=== PATIENT | female | born 1985 | race Caucasian/White ===

== ENCOUNTER 2016-07-03 18:15 | Inpatient (IN) | payer OTHER ==
[2016-07-03 18:26] VITALS: BMI 24.1
[2016-07-03 19:10] LABS: MCH 32.2 pg (25.7-33.7); MCHC 34.4 g/dl (32.0-36.0); MEAN CELL VOLUME 93.7 fl (80-96); MEAN PLT VOLUME 10.1 fl (7.5-11.1); NEUTROPHILS 70.7 % (42.8-82.8); PLATELET COUNT 250 K/MM3 (134-434); RDW 12.4 % (11.6-15.6); WHITE BLOOD COUNT 11.4 K/mm3 (4.0-10.0)
[2016-07-03] MEDS ORDERED: HYDROmorphone HCL CARPU-JECT 1 MG/1 ML DISP.SYRIN ONE ×2 (19:51→21:58)
[2016-07-03] MEDS ORDERED: ONDANSETRON 4 MG/2 ML VIAL ONE (19:52)
--- NOTE | 2016-07-03 19:57 | PDOC ---
History of Present Illness - History of Present Illness Initial Comments: 07/03/16 20:01 Patient is a 30 year old female with significant medical hx of DM type II ( since childhood), DKA, lupus, and MS (diagnosed 2013) who is presenting to the ED with reported MS flare that has been progressing for the past week. The patient complains of difficulty swallowing, walking and speaking. She states that she needs support to ambulate while getting to the bathroom. The patient endorses some slurred speech when she talks for more than five minutes. The patient also complains of some pain to her lips, collar bone and chest (which she describes as a tightness with mild associated SOB). The patient notes that her symptoms are typical for a flare of her MS. She's been having flares intermittently for the past several months. Denies fever, chills, sore throat, painful swallowing, blurred vision, cough, sputum production, abdominal pain, vomiting, diarrhea, changes in urination, changes in bowel habits, bloody stools, and rashes. Allergies: amoxicillin, penicillin LNMP: two weeks ago. <Rimma Burrows - Last Filed: 07/03/16 20:01> <Minesh Gandhi - Last Filed: 07/04/16 01:29> - General Chief Complaint: Pain Stated Complaint: PAIN Past History <Rimma Burrows - Last Filed: 07/03/16 20:01> - Past Medical History Diabetes: Yes (IDDM on pump) Other medical history: MS, LUPUS - Surgical History Orthopedic Surgery: Yes (R. Knee) - Family Disease History Family Disease History: Diabetes: Brother, Other: Mother (ms) - Psycho/Social/Smoking Cessation Hx Anxiety: No Suicidal Ideation: No Smoking Status: Yes Smoking History: Never smoked Have you smoked in the past 12 months: Yes Number of Cigarettes Smoked Daily: 5 If you are a former smoker, when did you quit?: 2012 Information on smoking cessation initiated: No 'Breaking Loose' booklet given: 09/18/13 Hx Alcohol Use: No Drug/Substance Use Hx: No Substance Use Type: Marijuana Hx Substance Use Treatment: No <Minesh Gandhi - Last Filed: 07/04/16 01:29> - Past Medical History Allergies/Adverse Reactions: Allergies Allergy/AdvReac Type Severity Reaction Status Date / Time Penicillins Allergy Mild Hives Verified 07/03/16 18:21 Home Medications: Ambulatory Orders Insulin Pump Syringe, 3 ml [Fifty50 [place]] 1 each MC DAILY 12/25/12 Bupropion HCl [Wellbutrin Xl] 300 mg PO DAILY 10/06/15 Modafinil 200 mg PO DAILY 10/06/15 Norgestimate-Ethinyl Estradiol [Trinessa Tablet] 1 each PO DAILY 10/06/15 Baclofen 20 mg PO BID 07/03/16 Glatiramer Acetate [Copaxone] 40 mg SQ ASDIR 07/03/16 Review of Systems - Review of Systems Comments:: 07/03/16 20:04 GENERAL/CONSTITUTIONAL: No fever or chills. No weakness. HEAD, EYES, EARS, NOSE AND THROAT: Lip pain. No change in vision. No ear pain or discharge. No sore throat. CARDIOVASCULAR: Chest tightness. Mild shortness of breath. RESPIRATORY: No cough, wheezing, or hemoptysis. GASTROINTESTINAL: Nausea. No abdominal pain, vomiting, diarrhea or constipation. GENITOURINARY: No dysuria, frequency, or change in urination. MUSCULOSKELETAL: Collar boen pain. No neck or back pain. SKIN: No rash NEUROLOGIC: MS flare. Difficulty ambulating, swallowing, and speaking. No headache, vertigo, loss of consciousness. <Rimma Burrows - Last Filed: 07/03/16 20:01> *Physical Exam - Vital Signs Last Vital Signs Temp Pulse Resp BP Pulse Ox 98.1 F 113 H 18 125/79 100 07/03/16 18:21 07/03/16 18:21 07/03/16 18:21 07/03/16 18:21 07/03/16 18:21 - Physical Exam Comments: 07/03/16 20:07 GENERAL: Slightly uncomfortable. Awake, alert, and fully oriented HEAD: No signs of trauma EYES: PERRLA, EOMI, sclera anicteric, conjunctiva clear ENT: Auricles normal inspection, hearing grossly normal, nares patent, oropharynx clear without exudates. Dry mucosa NECK: Normal ROM, supple, no lymphadenopathy, JVD, or masses LUNGS: Appears uncomfortable breathing but in no respiratory distress. Speaking coherently in full sentences. Shallow respiratory effort. Breath sounds equal, clear to auscultation bilaterally. No wheezes, and no crackles HEART: Regular rate and rhythm, normal S1 and S2, no murmurs, rubs or gallops ABDOMEN: Soft, nontender, normoactive bowel sounds. No guarding, no rebound. No masses EXTREMITIES: Normal range of motion, no edema. No clubbing or cyanosis. No cords, erythema, or tenderness NEUROLOGICAL: Cranial nerves II through XII grossly intact. Normal speech, normal gait SKIN: Warm, Dry, poor skin turgor. Right dorsum lateral 1.5 x 1 cm granulation tissue with scab that is erythematous. Multiple small superficial excoriations on the upper extremity and lower extremity. No rashes. ENDOCRINE: No increased thirst. No abnormal weight change. HEMATOLOGIC/LYMPHATIC: No anemia, easy bleeding, or history of blood clots. <Rimma Burrows - Last Filed: 07/03/16 20:01> - Vital Signs Last Vital Signs Temp Pulse Resp BP Pulse Ox 98.1 F 113 H 18 125/79 100 07/03/16 18:21 07/03/16 18:21 07/03/16 18:21 07/03/16 18:21 07/03/16 18:21 <Minesh Gandhi - Last Filed: 07/04/16 01:29> ED Treatment Course - LABORATORY CBC & Chemistry Diagram: 07/03/16 19:00 07/03/16 19:00 <Rimma Burrows - Last Filed: 07/03/16 20:01> - LABORATORY CBC & Chemistry Diagram: 07/03/16 19:01 07/03/16 19:01 <Minesh Gandhi - Last Filed: 07/04/16 01:29> Medical Decision Making - Medical Decision Making 07/04/16 01:27 30yo F with her typical symptoms suggestive of MS flare. She has a negative evaluation other than clinic weakness; she is given solumedrol; I have discussed the case with PMD who agrees with plan; endorsed to Dr. Kearns hospitalist. <Minesh Gandhi - Last Filed: 07/04/16 01:29> *DC/Admit/Observation/Transfer - Attestations Scribe Attestion: 07/03/16 20:09 Documentation prepared by Rimma Burrows, acting as medical assistant per diem for Minesh Gandhi MD. <MarkosRimma - Last Filed: 07/03/16 20:01> - Discharge Dispostion Admit: Yes Decision to Admit order Date/Time: 07/04/16 01:29 - Attestations Physician Attestion: 07/04/16 01:29 I, Dr. Minesh Gandhi MD, attest that this document has been prepared under my direction and personally reviewed by me in its entirety. I further attest, that it accurately reflects all work, treatment, procedures and medical decision -making performed by me. <Minesh Gandhi - Last Filed: 07/04/16 01:29> Diagnosis at time of Disposition: Exacerbation of multiple sclerosis, Weakness of both lower extremities - Referrals Referrals: Harvinder Vasquez MD [Primary Care Provider] -
[2016-07-03 20:02] LABS: ALBUMIN 4.3 g/dl (3.4-5.0); ANION GAP 11 (8-16); CALCIUM 9.4 mg/dL (8.5-10.1); CO2 28 mmol/L (21-32); CREATININE 0.8 mg/dL (0.55-1.02); GLUCOSE,RANDOM 92 mg/dL (74-106); MAGNESIUM 1.9 mg/dL (1.8-2.4); SGOT/AST 9 U/L (15-37); SGPT/ALT 18 U/L (12-78)
[2016-07-03] MEDS ORDERED: methylPREDNISolone NA SUCC 125 MG/2 ML VIAL IVPB ONE ×2 (20:02→20:04)
[2016-07-03 20:04] LABS: ALK PHOS 56 U/L (45-117); BILIRUBIN,TOTAL 0.3 mg/dL (0.2-1.0); TOT PROT 7.5 g/dl (6.4-8.2)
[2016-07-03] MEDS ORDERED: HYDROmorphone HCL CARPU-JECT 1 MG/1 ML DISP.SYRIN IVPUSH ONE (20:09)
[2016-07-03] MEDS ORDERED: ONDANSETRON 4 MG/2 ML VIAL IVPUSH ONE (20:09)
[2016-07-03] MEDS ORDERED: SODIUM CHLORIDE 0.9% 500 ML INFUS.BAG IV ONE (20:10)
[2016-07-03] MEDS ORDERED: methylPREDNISolone NA SUCC 125 MG/2 ML VIAL ONE (20:24)
[2016-07-04] MEDS ORDERED: HYDROmorphone HCL CARPU-JECT 1 MG/1 ML DISP.SYRIN IVPUSH ONE ×2 (00:11→05:01)
--- NOTE | 2016-07-04 00:31 | HP ---
[id number] Dr. Harvinder Vasquez [phone] HISTORY OF PRESENT ILLNESS: Patient is a 30 year old female with significant medical hx of DM type II ( since childhood), DKA, lupus, and MS (diagnosed 2013) who is presented to the ED with difficulty ambulating and some slurred speech (only when patient is speaking for greater than 5 minutes in duration), pain bilaterally to the bottom of her feet, chest, and collarbone and stated that this is typical flares (besides foot pain and difficulty swallowing) from her MS denies painful swallowing, blurred vision, nausea, vomiting, diarrhea, and fever. LNMP: two weeks ago. ER course was notable for: (1) Mild tachycardia 100 bpm (2) Given Solumedrol 250 mg Recent Travel: Denied PAST MEDICAL HISTORY: Type II Diabetes, DKA, Lupus, MS PAST SURGICAL HISTORY: Right knee Social History: Smoking: Denied Alcohol: Denied Drugs: Denied Family History: Mother: MS Brother: diabetes Allergies Penicillins Allergy (Mild, Verified 07/03/16 18:21) Hives HOME MEDICATIONS: Home Medications Medication Instructions Recorded Insulin Pump Syringe, 3 ml 1 each MC DAILY 12/25/12 [Fifty50 [place]] Bupropion HCl [Wellbutrin Xl] 300 mg PO DAILY 10/06/15 Modafinil 200 mg PO DAILY 10/06/15 Norgestimate-Ethinyl Estradiol 1 each PO DAILY 10/06/15 [Trinessa Tablet] Baclofen 20 mg PO BID 07/03/16 Glatiramer Acetate [Copaxone] 40 mg SQ ASDIR 07/03/16 REVIEW OF SYSTEMS CONSTITUTIONAL: Absent: fever, chills, diaphoresis, generalized weakness, malaise, loss of appetite, weight change HEENT: Present: Difficulty swallowing Absent: rhinorrhea, nasal congestion, throat pain, throat swelling, mouth swelling, ear pain, eye pain, visual changes CARDIOVASCULAR: Present: Chest pain Absent: syncope, palpitations, irregular heart rate, lightheadedness, peripheral edema RESPIRATORY: Absent: cough, shortness of breath, dyspnea with exertion, orthopnea, wheezing, stridor, hemoptysis GASTROINTESTINAL: Absent: abdominal pain, abdominal distension, nausea, vomiting, diarrhea, constipation, melena, hematochezia GENITOURINARY: Absent: dysuria, frequency, urgency, hesitancy, hematuria, flank pain, genital pain MUSCULOSKELETAL: Present: Bilateral foot and collarbone pain Absent: myalgia, arthralgia, joint swelling, back pain, neck pain SKIN: Absent: rash, itching, pallor HEMATOLOGIC/IMMUNOLOGIC: Absent: easy bleeding, easy bruising, lymphadenopathy, frequent infections ENDOCRINE: Absent: unexplained weight gain, unexplained weight loss, heat intolerance, cold intolerance NEUROLOGIC: Present: Difficulty ambulating, slurred speech Absent: headache, focal weakness or paresthesias, dizziness, seizure, mental status changes, bladder or bowel incontinence PSYCHIATRIC: Absent: anxiety, depression, suicidal or homicidal ideation, hallucinations. PHYSICAL EXAMINATION Vital Signs - 24 hr 07/03/16 07/03/16 18:21 20:04 Temperature 98.1 F 99 F Pulse Rate 113 H Pulse Rate [ 100 H Right Radial] Respiratory 18 20 Rate Blood Pressure 125/79 Blood Pressure 139/90 [Left Arm] O2 Sat by Pulse 100 98 Oximetry (%) GENERAL: Awake, alert, and fully oriented, in no acute distress. HEAD: Normal with no signs of trauma. EYES: Pupils equal, round and reactive to light, extraocular movements intact, sclera anicteric, conjunctiva clear. No lid lag. EARS, NOSE, THROAT: Ears normal, nares patent, oropharynx clear without exudates. Moist mucous membranes. NECK: Normal range of motion, supple without lymphadenopathy, JVD, or masses. LUNGS: Breath sounds equal, clear to auscultation bilaterally. No wheezes, and no crackles. No accessory muscle use. HEART: Regular rate and rhythm, normal S1 and S2 without murmur, rub or gallop. ABDOMEN: Soft, nontender, not distended, normoactive bowel sounds, no guarding, no rebound, no masses. No hepatomegaly or splenomegaly. MUSCULOSKELETAL: Normal range of motion at all joints. No bony deformities or tenderness. No CVA tenderness. UPPER EXTREMITIES: 2+ pulses, warm, well-perfused. No cyanosis. No clubbing. No peripheral edema. LOWER EXTREMITIES: 2+ pulses, warm, well-perfused. No calf tenderness. No peripheral edema. NEUROLOGICAL: (+) Cranial nerves II-XII intact. +3 DTR bilaterally including bicep tricep dorsalis radius, dorsalis pedis and plantar. PSYCHIATRIC: Cooperative. Good eye contact. Appropriate mood and affect. SKIN: Warm, dry, normal turgor, no rashes or lesions noted, normal capillary refill. Laboratory Results - last 24 hr 07/03/16 07/03/16 19:01 19:01 WBC 11.4 H D RBC 4.31 Hgb 13.9 Hct 40.4 MCV 93.7 MCHC 34.4 RDW 12.4 Plt Count 250 MPV 10.1 Neutrophils % 70.7 D Lymphocytes % 21.9 D Monocytes % 4.4 Eosinophils % 2.0 D Basophils % 1.0 D Sodium 141 Potassium 3.6 Chloride 102 Carbon Dioxide 28 Anion Gap 11 BUN 11 Creatinine 0.8 D Creat Clearance w eGFR > 60 Random Glucose 92 D Calcium 9.4 Magnesium 1.9 Total Bilirubin 0.3 D AST 9 L D ALT 18 D Alkaline Phosphatase 56 Total Protein 7.5 Albumin 4.3 IMAGIN. Chest X-ray Impression: No official read. No acute finding. Reviewed and interpreted by radiologist. ASSESSMENT/PLAN: Patient is a 30 year old female with significant medical hx of DM type II ( since childhood), DKA, lupus, and MS (diagnosed 2013) who is presented to the ED with difficulty swallowing walking and speech consistent with prior MS flare being admitted for MS exacerbation 1. Multiple Sclerosis flare -Solumedrol 250 mg Q6H -On copaxone -MRI with and without contrast to look for new lesions 2. Diabetes -Fingersticks Q4H -On insulin pump -Continue basal coverage -Endocrine consult 3. Lupus -Continue with home medications -Pain control Admit to. Documentation prepared by Benji Garibay, acting as medical educator for Dr. Gracie Kearns MD. <Gracie Kearns - Last Filed: 07/05/16 07:08> Dysphagia - Speech and Swallow Consult Visit type - Emergency Visit Emergency Visit: Yes ED Registration Date: 07/04/16 Care time: The patient presented to the Emergency Department on the above date and was hospitalized for further evaluation of their emergent condition. - New Patient This patient is new to me today: Yes Date on this admission: 07/05/16 - Critical Care Critical Care patient: No
[2016-07-04] MEDS ORDERED: HYDROmorphone HCL CARPU-JECT 1 MG/1 ML DISP.SYRIN ONE ×2 (01:12→05:19)
[2016-07-04] MEDS ORDERED: methylPREDNISolone NA SUCC 125 MG/2 ML VIAL ONE ×4 (02:36→13:37)
[2016-07-04] MEDS: methylPREDNISolone NA SUCC 125 MG/2 ML VIAL IVPB SCH ×3 (02:46→10:00)
[2016-07-04] MEDS ORDERED: LORAZEPAM CARPU-JECT 2 MG/ML DISP.SYRIN IVPUSH ONE (06:01)
[2016-07-04] MEDS ORDERED: LORAZEPAM CARPU-JECT 2 MG/ML DISP.SYRIN ONE (06:14)
[2016-07-04 06:46] LABS: URINE APPEARANCE CLOUDY; URINE BILIRUBIN NEGATIVE (NEGATIVE); URINE BLOOD NEGATIVE (NEGATIVE); URINE COLOR YELLOW; URINE GLUCOSE (UA) NEGATIVE (NEGATIVE); URINE KETONE NEGATIVE (NEGATIVE); URINE NITRITE NEGATIVE (NEGATIVE); URINE PROTEIN NEGATIVE (NEGATIVE); URINE UROBILINOGEN NEGATIVE E.U./dl (0.2-1.0)
[2016-07-04 07:00] LABS: MCH 32.9 pg (25.7-33.7); MCHC 34.8 g/dl (32.0-36.0); MEAN CELL VOLUME 94.6 fl (80-96); MEAN PLT VOLUME 9.9 fl (7.5-11.1); PLATELET COUNT 205 K/MM3 (134-434); RDW 12.2 % (11.6-15.6); WHITE BLOOD COUNT 9.6 K/mm3 (4.0-10.0)
[2016-07-04 07:25] LABS: CALCIUM 8.8 mg/dL (8.5-10.1); CREATININE 0.8 mg/dL (0.55-1.02)
[2016-07-04 08:38] LABS: URINE LEUK ESTERASE TRACE (NEGATIVE)
[2016-07-04 08:42] LABS: URINE RBC 2 /hpf (0-3); URINE WBC 1 /hpf (3-5)
[2016-07-04] MEDS ORDERED: NORGESTIMATE ETHINYL ESTRADIOL PO SCH (10:00)
[2016-07-04] MEDS ORDERED: INSULIN PUMP MC SCH (10:00)
[2016-07-04] MEDS ORDERED: [UNRECOGNIZED DRUG - OTHER] MC SCH (10:00)
[2016-07-04] MEDS: BACLOFEN 10 MG TABLET (FP) PO SCH ×2 (10:10→22:02)
[2016-07-04] MEDS ORDERED: methylPREDNISolone NA SUCC 1000 MG/8 ML VIAL IVPB ONE ×2 (11:30→12:00)
[2016-07-04] MEDS ORDERED: methylPREDNISolone NA SUCC 125 MG/2 ML VIAL IVPB ONE (12:00)
--- NOTE | 2016-07-04 13:31 | EKG ---
Test Reason : Blood Pressure : / mmHG Vent. Rate : 078 BPM Atrial Rate : 078 BPM P-R Int : 150 ms QRS Dur : 088 ms QT Int : 392 ms P-R-T Axes : 071 066 066 degrees QTc Int : 446 ms NORMAL SINUS RHYTHM NORMAL ECG WHEN COMPARED WITH ECG OF 18-SEP-2013 13:57, NO SIGNIFICANT CHANGE WAS FOUND Confirmed by AYAD NIEVES MD ([id number]) on 07/04/2016 1:30:57 PM Referred By: Confirmed By:AYAD NIEVES MD
--- NOTE | 2016-07-04 13:50 | CONSULT ---
Consult Consult Specialty:: Neurology Reason for Consultation:: Multiple sclerosis exacerbation - History of Present Illness History of Present Illness: 30 year old woman, history of relapsing remitting multiple sclerosis, follows with Dr Donaldson and currently maintained on copaxone, diabetes, lupus, presents with new onset of left sided weakness. The patient was diagnosed in 2013 with MS after noting new onset of right foot drag. Her mother has history of MS as well. Patient has been on multiple medical regimes for MS treatment, including tecfidera which caused GI upset, aubagio, and currently copaxone. Over the last month has noted worsening of baseline symptoms (right arm ataxia) and new onset of left sided weakness. She has previously been hospitalized for IV solumedrol. Last MRI brain was in September 2015. Currently denies UTI symptoms, fever or infectious symptoms. - Past Medical History REGISTERED NURSE: Yes: Multiple Sclerosis ...LMP: 06/13/16 ...: No Endocrine: Yes: Diabetes Mellitus (on insulin pump) - Alcohol/Substance Use Hx Alcohol Use: No - Smoking History Smoking history: Former smoker Have you smoked in the past 12 months: Yes Aproximately how many cigarettes per day: 5 If you are a former smoker, when did you quit?: 2012 - Social History Usual Living Arrangement: With Significant Other Home Medications - Allergies Allergies/Adverse Reactions: Allergies Allergy/AdvReac Type Severity Reaction Status Date / Time Penicillins Allergy Mild Hives Verified 07/03/16 18:21 - Home Medications Home Medications: Ambulatory Orders Insulin Pump Syringe, 3 ml [Fifty50 [place]] 1 each ASDIR 12/25/12 Bupropion HCl [Wellbutrin Xl] 300 mg PO DAILY 10/06/15 Modafinil 200 mg PO DAILY 10/06/15 Norgestimate-Ethinyl Estradiol [Trinessa Tablet] 1 each PO DAILY 10/06/15 Baclofen 20 mg PO BID 07/03/16 Glatiramer Acetate [Copaxone] 40 mg SQ TUTHSA 07/03/16 Family Disease History - Family Disease History Family Disease History: Diabetes: Brother, Other: Mother (MS) Review of Systems - Review of Systems Constitutional: reports: No Symptoms Eyes: reports: No Symptoms HENT: reports: No Symptoms Cardiovascular: reports: No Symptoms Respiratory: reports: No Symptoms Neurological: reports: Incoordination, Unsteady Gait, Weakness Physical Exam Vital Signs: Vital Signs Temperature 98 F 07/04/16 11:08 Pulse Rate 93 H 07/04/16 11:08 Respiratory Rate 17 07/04/16 11:08 Blood Pressure 133/75 07/04/16 11:08 O2 Sat by Pulse Oximetry (%) 100 07/04/16 11:08 Constitutional: Yes: No Distress Eyes: Yes: Conjunctiva Clear, EOM Intact HENT: Yes: Atraumatic, Normocephalic Cardiovascular: Yes: S1, S2 Respiratory: Yes: Regular Neurological: Yes: Other (awake, alert, knows name, age, month CNII-XII EOMI, visual lopez full, face symmetric, tongue midline Motor moderate left hemiparesis, left deltoid/bicep/tri 4/5, hip flexion, knee flexion 4-/5 right arm ataxia to finger nose finger sensory intact to light touch) Labs: CBC, BMP 07/04/16 06:45 07/04/16 06:45 Assessment/Plan 30 year old woman, history of relapsing remitting multiple sclerosis, follows with Dr Donaldson and currently maintained on copaxone, diabetes, lupus, presents with new onset of left sided weakness. The patient was diagnosed in 2013 with MS after noting new onset of right foot drag. Her mother has history of MS as well. Patient has been on multiple medical regimes for MS treatment, including tecfidera which caused GI upset, aubagio, and currently copaxone. Over the last month has noted worsening of baseline symptoms (right arm ataxia) and new onset of left sided weakness. She has previously been hospitalized for IV solumedrol. Last MRI brain was in September 2015. Currently denies UTI symptoms, fever or infectious symptoms. Multiple sclerosis exacerbation Recommend Methylprednisolone 1 g IV for three to five days MRI brain and cervical spine with and without contrast Infectious workup PT/OT Will follow
[2016-07-04] MEDS ORDERED: ACETAMINOPHEN 325 MG TABLET (FP) PO PRN (17:42)
--- NOTE | 2016-07-04 17:48 | HP ---
Admitting History and Physical - Primary Care Physician PCP: Elbert Mooney - Admission Chief Complaint: SLURRED SPEECH/WEAKNESS History of Present Illness: Patient is a 30 year old female with significant medical hx of DM type II ( since childhood), DKA, lupus, and MS (diagnosed 2013) who is presented to the ED with difficulty ambulating and some slurred speech (only when patient is speaking for greater than 5 minutes in duration), pain bilaterally to the bottom of her feet, chest, and collarbone and stated that this is typical flares (besides foot pain and difficulty swallowing) from her MS denies painful swallowing, blurred vision, nausea, vomiting, diarrhea, and fever. LNMP: two weeks ago. 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: Multiple Sclerosis ...LMP: 06/13/16 ...: No Endocrine: Yes: Diabetes Mellitus (on insulin pump) - Smoking History Smoking history: Former smoker Have you smoked in the past 12 months: Yes Aproximately how many cigarettes per day: 5 If you are a former smoker, when did you quit?: 2013 - Alcohol/Substance Use Hx Alcohol Use: No Home Medications - Allergies Allergies/Adverse Reactions: Allergies Allergy/AdvReac Type Severity Reaction Status Date / Time Penicillins Allergy Mild Hives Verified 07/03/16 18:21 - Home Medications Home Medications: Ambulatory Orders Insulin Pump Syringe, 3 ml [Fifty50 [place]] 1 each ASDIR 12/25/12 Bupropion HCl [Wellbutrin Xl] 300 mg PO DAILY 10/06/15 Modafinil 200 mg PO DAILY 10/06/15 Norgestimate-Ethinyl Estradiol [Trinessa Tablet] 1 each PO DAILY 10/06/15 Baclofen 20 mg PO BID 07/03/16 Glatiramer Acetate [Copaxone] 40 mg SQ TUTHSA 07/03/16 Family Disease History - Family Disease History Family Disease History: Diabetes: Brother, Other: Mother (MS) Review of Systems - Review of Systems Constitutional: reports: Lethargy, Loss of Appetite, Weakness Eyes: reports: No Symptoms HENT: reports: No Symptoms Neck: reports: No Symptoms Cardiovascular: reports: No Symptoms Respiratory: reports: No Symptoms Gastrointestinal: reports: No Symptoms Genitourinary: reports: No Symptoms Musculoskeletal: reports: Muscle Weakness Integumentary: reports: Other Neurological: reports: Change in Speech, Confusion, Incoordination, Pre- Existing Deficit, Weakness Endocrine: reports: No Symptoms Hematology/Lymphatic: reports: No Symptoms Psychiatric: reports: No Symptoms Physical Examination Vital Signs: Vital Signs Temperature 98.1 F 07/04/16 16:49 Pulse Rate 89 07/04/16 16:49 Respiratory Rate 16 07/04/16 16:49 Blood Pressure 128/75 07/04/16 16:49 O2 Sat by Pulse Oximetry (%) 100 07/04/16 16:49 Constitutional: Yes: Mild Distress Eyes: Yes: WNL HENT: Yes: WNL Neck: Yes: WNL Cardiovascular: Yes: WNL Respiratory: Yes: WNL Gastrointestinal: Yes: WNL Renal/: Yes: WNL Musculoskeletal: Yes: Muscle Weakness Extremities: Yes: WNL Edema: No Peripheral Pulses WNL: Yes Integumentary: Yes: WNL Wound/Incision: Yes: Clean/Dry Neurological: Yes: Pre-Existing Deficit, Weakness ...Motor Strength: LUE, LLE, RUE, RLE Psychiatric: Yes: Other Labs: CBC, BMP 07/04/16 06:45 07/04/16 06:45 Imaging - Results MRI: Report Reviewed Problem List - Problems (1) Diabetes mellitus Code(s): E11.9 - TYPE 2 DIABETES MELLITUS WITHOUT COMPLICATIONS Qualifiers: Diabetes mellitus type: type 2 Diabetes mellitus complication detail: with other neurological complication (2) Headache Code(s): R51 - HEADACHE Qualifiers: Headache type: other vascular headache Qualified Code(s): G44.1 - Vascular headache, not elsewhere classified (3) Multiple sclerosis Code(s): G35 - MULTIPLE SCLEROSIS (4) Multiple sclerosis exacerbation Code(s): G35 - MULTIPLE SCLEROSIS (5) Weakness of both legs Code(s): R29.898 - OTH SYMPTOMS AND SIGNS INVOLVING THE MUSCULOSKELETAL SYSTEM (6) Ataxia Code(s): R27.0 - ATAXIA, UNSPECIFIED Assessment/Plan NEUROLOGY EVAL IV STEROIDS PPI PT EVAL DEPRESSION CONTROLLED NEURO CHECKS, FALL PRECAUTIONS
[2016-07-04] MEDS ORDERED: PT OWN MED DRAWER 7, Y5N ONE (18:14)
[2016-07-04] MEDS: HYDROmorphone HCL CARPU-JECT 1 MG/1 ML DISP.SYRIN IVPB PRN (19:44)
[2016-07-04] MEDS: PANTOPRAZOLE 40 MG TABLET (FP) PO SCH (19:44)
[2016-07-04] MEDS ORDERED: INSULIN SLIDING SCALE (NOVOLOG) 1 VIAL SQ SCH ×2 (22:00→23:59)
--- NOTE | 2016-07-04 23:47 | CONSULT ---
Consult Consult Specialty:: endocrine Referred by:: dr.rabadi fernandez Reason for Consultation:: iddm type 1 - History of Present Illness Chief Complaint: flare up MS high sugars on insulin pump History of Present Illness: 30 y female type 1 iddm ,pmh sle,MS,admitted with flare up MS with difficulty walking,burning pain in both feet,unable to walk worsening ballance,and mobility ,difficulty left sided weakness,has elevated blood sugars,and difficuty managing diabetes since admission.She uses insulin pump external device humalog basal bolus insulin dosing . 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 ...LMP: 06/13/16 ...: No Endocrine: Yes: Diabetes Mellitus (on insulin pump) - Alcohol/Substance Use Hx Alcohol Use: No - Smoking History Smoking history: Former smoker Have you smoked in the past 12 months: Yes Aproximately how many cigarettes per day: 5 If you are a former smoker, when did you quit?: 2012 - Social History Usual Living Arrangement: With Significant Other Home Medications - Allergies Allergies/Adverse Reactions: Allergies Allergy/AdvReac Type Severity Reaction Status Date / Time Penicillins Allergy Mild Hives Verified 07/03/16 18:21 - Home Medications Home Medications: Ambulatory Orders Insulin Pump Syringe, 3 ml [Fifty50 [place]] 1 each MC ASDIR 12/25/12 Bupropion HCl [Wellbutrin Xl] 300 mg PO DAILY 10/06/15 Modafinil 200 mg PO DAILY 10/06/15 Norgestimate-Ethinyl Estradiol [Trinessa Tablet] 1 each PO DAILY 10/06/15 Baclofen 20 mg PO BID 07/03/16 Glatiramer Acetate [Copaxone] 40 mg SQ TUTHSA 07/03/16 Family Disease History - Family Disease History Family Disease History: Diabetes: Brother, Other: Mother (MS) Review of Systems - Review of Systems Constitutional: reports: Lethargy, Loss of Appetite, Unintentional Wgt. Loss, Weakness Eyes: reports: Blurred Vision HENT: reports: Difficult Swallowing, Throat Pain Neck: reports: Decreased ROM Cardiovascular: reports: Shortness of Breath Respiratory: reports: Exercise Intolerance, SOB, SOB on Exertion Gastrointestinal: reports: Bloating Genitourinary: reports: No Symptoms Breasts: reports: No Symptoms Reported Musculoskeletal: reports: Decreased ROM, Extremity Pain, Joint Pain, Muscle Pain , Muscle Cramps, Muscle Weakness Integumentary: reports: Eczema Endocrine: reports: Unexplained Weight Loss Physical Exam Vital Signs: Vital Signs Temperature 98.1 F 07/04/16 16:49 Pulse Rate 89 07/04/16 16:49 Respiratory Rate 16 07/04/16 17:43 Blood Pressure 128/75 07/04/16 16:49 O2 Sat by Pulse Oximetry (%) 100 07/04/16 17:43 Constitutional: Yes: Anxious, Mild Distress Eyes: Yes: EOM Intact HENT: Yes: Normocephalic, Hoarseness Neck: Yes: Trachea Midline Cardiovascular: Yes: Regular Rate and Rhythm Respiratory: Yes: CTA Bilaterally Gastrointestinal: Yes: Normal Bowel Sounds ...Rectal Exam: Yes: Deferred Renal/: Yes: WNL Musculoskeletal: Yes: Muscle Pain, Muscle Weakness Edema: No Peripheral Pulses WNL: Yes Integumentary: Yes: WNL Neurological: Yes: Alert, Oriented, Numbness, Paresthesia, Pre-Existing Deficit , Tingling, Tremors, Unsteady Gait, Weakness Labs: CBC, BMP 07/04/16 06:45 07/04/16 06:45 Problem List - Problems (1) Headache Code(s): R51 - HEADACHE Qualifiers: Headache type: other vascular headache Qualified Code(s): G44.1 - Vascular headache, not elsewhere classified (2) Multiple sclerosis Code(s): G35 - MULTIPLE SCLEROSIS (3) Multiple sclerosis exacerbation Code(s): G35 - MULTIPLE SCLEROSIS (4) Weakness of both legs Code(s): R29.898 - OTH SYMPTOMS AND SIGNS INVOLVING THE MUSCULOSKELETAL SYSTEM (5) 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 Code(s): E10.44 - TYPE 1 DIABETES MELLITUS WITH DIABETIC AMYOTROPHY Assessment/Plan Current Active Problems Diabetes mellitus (Acute) Headache (Acute) Insomnia (Acute) Multiple sclerosis (Acute) Multiple sclerosis exacerbation (Acute) Weakness of both legs (Acute) iddm type 1 neuropathy hyperglycemia insulin dependent diabetes mellitus Abnormal Lab Results 07/04/16 07/04/16 06:10 06:45 Random Glucose 255 H D Ur Leukocyte Esterase Trace H Laboratory Results - last 24 hr 07/04/16 07/04/16 07/04/16 06:10 06:45 06:45 WBC 9.6 RBC 4.15 Hgb 13.7 Hct 39.3 MCV 94.6 MCHC 34.8 RDW 12.2 Plt Count 205 MPV 9.9 Sodium 136 Potassium 4.2 Chloride 102 Carbon Dioxide 22 D Anion Gap 12 BUN 10 Creatinine 0.8 POC Glucometer Random Glucose 255 H D Calcium 8.8 Urine Color Yellow Urine Appearance Cloudy Urine pH 8.0 Ur Specific [place] 1.012 Urine Protein Negative Urine Glucose (UA) Negative Urine Ketones Negative Urine Blood Negative Urine Nitrite Negative Urine Bilirubin Negative Urine Urobilinogen Negative Ur Leukocyte Esterase Trace H Urine RBC 2 Urine WBC 1 Ur Epithelial Cells Moderate 07/04/16 21:18 WBC RBC Hgb Hct MCV MCHC RDW Plt Count MPV Sodium Potassium Chloride Carbon Dioxide Anion Gap BUN Creatinine POC Glucometer 318 Random Glucose Calcium Urine Color Urine Appearance Urine pH Ur Specific [place] Urine Protein Urine Glucose (UA) Urine Ketones Urine Blood Urine Nitrite Urine Bilirubin Urine Urobilinogen Ur Leukocyte Esterase Urine RBC Urine WBC Ur Epithelial Cells Laboratory Tests 07/04/16 07/04/16 06:45 21:18 Sodium 136 Potassium 4.2 Chloride 102 Carbon Dioxide 22 D Anion Gap 12 BUN 10 Creatinine 0.8 POC Glucometer 318 Random Glucose 255 H D plan: bgm qid patient using insulin pump basal bolus dosing given carb count and adjustment patient capable of using using pump adherent to teaching criteria with instruction by cde will notify if sugar over 350 mg/dl or below 50mg/dl ck hb a1c
[2016-07-05] MEDS ORDERED: HYDROmorphone HCL CARPU-JECT 2 MG/1 ML DISP.SYRIN IVPB ONE (00:30)
[2016-07-05] MEDS: ONDANSETRON *ODT* 4 MG TABLET SL PRN ×2 (06:25→14:16)
[2016-07-05 08:50] LABS: CHOLESTEROL 215 mg/dL (50-200); LDL CHOLESTEROL (ONLY SJRH) 126 mg/dL (5-100)
[2016-07-05] MEDS ORDERED: methylPREDNISolone NA SUCC 125 MG/2 ML VIAL ONE (09:55)
[2016-07-05] MEDS: PANTOPRAZOLE 40 MG TABLET (FP) PO SCH (10:00)
[2016-07-05] MEDS: DOCUSATE SODIUM 100 MG CAPSULE (FP) PO SCH (10:00)
[2016-07-05] MEDS: BACLOFEN 10 MG TABLET (FP) PO SCH ×2 (10:01→22:02)
--- NOTE | 2016-07-05 10:49 | PN ---
Progress Note, Physician Chief Complaint: AWAKE ALERT UNSTEADY GAIT VISIBLE TREMORS AND WEAKNESS " I FEEL LIKE WHEN I SWALLOW I DO NOT KNOW IF I WILL BE ABLE TO CONTROL THE FOOD " - Current Medication List Current Medications: Active Medications Acetaminophen (Tylenol -) 650 mg PO Q6H PRN PRN Reason: FEVER OR PAIN Baclofen (Lioresal -) 20 mg PO BID [facility] Last Admin: 07/05/16 10:01 Dose: 20 mg Bupropion HCl (Wellbutrin Xl -) 300 mg PO DAILY [facility] Last Admin: 07/05/16 10:01 Dose: 300 mg Docusate Sodium (Colace -) 100 mg PO DAILY [facility] Last Admin: 07/05/16 10:00 Dose: 100 mg Hydromorphone HCl (Dilaudid Injection -) 1 mg IVPB Q6H PRN PRN Reason: PAIN Last Admin: 07/04/16 19:44 Dose: 1 mg Insulin Aspart (Novolog Vial Sliding Scale -) 1 vial SQ ACHS [facility] PRN Reason: Protocol Methylprednisolone Sodium Succinate (Solu-Medrol -) 1,000 mg IVPB DAILY [facility] Stop: 07/06/16 10:01 Non-Formulary Medication (Norgestimate-Ethinyl Estradiol [Trinessa Tablet]) 1 each PO DAILY [facility] Last Admin: 07/04/16 10:00 Dose: 1 each Ondansetron HCl (Zofran Odt -) 4 mg SL Q6H PRN PRN Reason: NAUSEA AND/OR VOMITING Last Admin: 07/05/16 06:25 Dose: 4 mg Pantoprazole Sodium (Protonix -) 40 mg PO DAILY [facility] Last Admin: 07/05/16 10:00 Dose: 40 mg - Objective Vital Signs: Vital Signs Temperature 97.5 F L 07/05/16 08:00 Pulse Rate 68 07/05/16 08:00 Respiratory Rate 18 07/05/16 08:00 Blood Pressure 115/79 07/05/16 08:00 O2 Sat by Pulse Oximetry (%) 100 07/05/16 08:34 Constitutional: Yes: Mild Distress Eyes: Yes: WNL HENT: Yes: WNL Neck: Yes: WNL Cardiovascular: Yes: WNL Respiratory: Yes: WNL Gastrointestinal: Yes: WNL Genitourinary: Yes: WNL Musculoskeletal: Yes: Muscle Weakness Extremities: Yes: Other Edema: No Peripheral Pulses WNL: Yes Integumentary: Yes: WNL Wound/Incision: Yes: Clean/Dry Neurological: Yes: Loss of Sensation, Numbness, Paresthesia, Pre-Existing Deficit, Tremors, Unsteady Gait, Weakness ...Motor Strength: LUE, LLE, RUE, RLE Psychiatric: Yes: WNL Labs: CBC, BMP 07/04/16 06:45 07/04/16 06:45 Problem List - Problems (1) Diabetes mellitus Code(s): E11.9 - TYPE 2 DIABETES MELLITUS WITHOUT COMPLICATIONS Qualifiers: Diabetes mellitus type: type 2 Diabetes mellitus complication detail: with other neurological complication (2) Headache Code(s): R51 - HEADACHE Qualifiers: Headache type: other vascular headache Qualified Code(s): G44.1 - Vascular headache, not elsewhere classified (3) Multiple sclerosis Code(s): G35 - MULTIPLE SCLEROSIS (4) Multiple sclerosis exacerbation Code(s): G35 - MULTIPLE SCLEROSIS (5) Weakness of both legs Code(s): R29.898 - OTH SYMPTOMS AND SIGNS INVOLVING THE MUSCULOSKELETAL SYSTEM (6) Ataxia Code(s): R27.0 - ATAXIA, UNSPECIFIED Assessment/Plan IV STEROIDS CONTINUE PAIN CONTROL OOB TO CHAIR SWALLOW EVAL RULE OUT ASPIRATIONS CHANGED TO CHOPPED DIET WITH HONEY THICK LIQUIDS UNTIL SWALLOW EVAL COMPLETE PAIN CONTROL MAY BENEFIT FROM SNF
--- NOTE | 2016-07-05 10:51 | PN ---
Progress Note (short form) - Note Progress Note: PATIENT CHANGED FROM TELEMETRY BED TO MED/SURGERY BECAUSE NO ACUTE CVA WAS NOTED ON MRI. Problem List - Problems (1) Diabetes mellitus Code(s): E11.9 - TYPE 2 DIABETES MELLITUS WITHOUT COMPLICATIONS Qualifiers: Diabetes mellitus type: type 2 Diabetes mellitus complication detail: with other neurological complication (2) Headache Code(s): R51 - HEADACHE Qualifiers: Headache type: other vascular headache Qualified Code(s): G44.1 - Vascular headache, not elsewhere classified (3) Multiple sclerosis Code(s): G35 - MULTIPLE SCLEROSIS (4) Multiple sclerosis exacerbation Code(s): G35 - MULTIPLE SCLEROSIS (5) Weakness of both legs Code(s): R29.898 - OTH SYMPTOMS AND SIGNS INVOLVING THE MUSCULOSKELETAL SYSTEM (6) Ataxia Code(s): R27.0 - ATAXIA, UNSPECIFIED
--- NOTE | 2016-07-05 11:39 | PN ---
Progress Note (short form) - Note Progress Note: Neurology follow up Consult Consult Specialty:: Neurology Reason for Consultation:: Multiple sclerosis exacerbation - History of Present Illness History of Present Illness: 30 year old woman, history of relapsing remitting multiple sclerosis, follows with Dr Donaldson and currently maintained on copaxone, diabetes, lupus, presents with new onset of left sided weakness. The patient was diagnosed in 2013 with MS after noting new onset of right foot drag. Her mother has history of MS as well. Patient has been on multiple medical regimes for MS treatment, including tecfidera which caused GI upset, aubagio, and currently copaxone. Over the last month has noted worsening of baseline symptoms (right arm ataxia) and new onset of left sided weakness. She has previously been hospitalized for IV solumedrol. Last MRI brain was in September 2015. Currently denies UTI symptoms, fever or infectious symptoms. 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 ...LMP: 06/13/16 ...: No Endocrine: Yes: Diabetes Mellitus (on insulin pump) - Alcohol/Substance Use Hx Alcohol Use: No - Smoking History Smoking history: Former smoker Have you smoked in the past 12 months: Yes Aproximately how many cigarettes per day: 5 If you are a former smoker, when did you quit?: 2012 - Social History Usual Living Arrangement: With Significant Other Home Medications - Allergies Allergies/Adverse Reactions: Allergies Allergy/AdvReac Type Severity Reaction Status Date / Time Penicillins Allergy Mild Hives Verified 07/03/16 18:21 - Home Medications Home Medications: Ambulatory Orders Insulin Pump Syringe, 3 ml [Fifty50 [place]] 1 each MC ASDIR 12/25/12 Bupropion HCl [Wellbutrin Xl] 300 mg PO DAILY 10/06/15 Modafinil 200 mg PO DAILY 10/06/15 Norgestimate-Ethinyl Estradiol [Trinessa Tablet] 1 each PO DAILY 10/06/15 Baclofen 20 mg PO BID 07/03/16 Glatiramer Acetate [Copaxone] 40 mg SQ TUTHSA 07/03/16 Family Disease History - Family Disease History Family Disease History: Diabetes: Brother, Other: Mother (MS) Review of Systems - Review of Systems Constitutional: reports: No Symptoms Eyes: reports: No Symptoms HENT: reports: No Symptoms Cardiovascular: reports: No Symptoms Respiratory: reports: No Symptoms Neurological: reports: Incoordination, Unsteady Gait, Weakness Physical Exam Constitutional: Yes: No Distress Eyes: Yes: Conjunctiva Clear, EOM Intact HENT: Yes: Atraumatic, Normocephalic Cardiovascular: Yes: S1, S2 Respiratory: Yes: Regular Neurological: Yes: Other (awake, alert, knows name, age, month CNII-XII EOMI, visual lopez full, face symmetric, tongue midline Motor moderate left hemiparesis, left deltoid/bicep/tri 4/5, hip flexion, knee flexion 4-/5 right arm ataxia to finger nose finger sensory intact to light touch) Assessment/Plan 30 year old woman, history of relapsing remitting multiple sclerosis, follows with Dr Donaldson and currently maintained on copaxone, diabetes, lupus, presents with new onset of left sided weakness. The patient was diagnosed in 2013 with MS after noting new onset of right foot drag. Her mother has history of MS as well. Patient has been on multiple medical regimes for MS treatment, including tecfidera which caused GI upset, aubagio, and currently copaxone. Over the last month has noted worsening of baseline symptoms (right arm ataxia) and new onset of left sided weakness. She has previously been hospitalized for IV solumedrol. Last MRI brain was in September 2015. Currently denies UTI symptoms, fever or infectious symptoms. Multiple sclerosis exacerbation, right parietal centrum semiovale ring enhancing lesion Recommend Methylprednisolone 1 g IV for three to five days, currently day 2 MRI brain and cervical spine with and without contrast- shows right parietal centrum semiovale ring enhancing lesion. MRI C spine ?C5 demyelinating plaque. Explained in detail to patient results of MRI PT/OT Will follow
--- NOTE | 2016-07-05 11:40 | CONSULT ---
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 ...LMP: 06/13/16 ...: No Endocrine: Yes: Diabetes Mellitus (on insulin pump) - Smoking History Smoking history: Former smoker Have you smoked in the past 12 months: Yes Aproximately how many cigarettes per day: 5 If you are a former smoker, when did you quit?: 2012 - Alcohol/Substance Use Hx Alcohol Use: No History - Admission Reason For Visit: M/S EXACERBATION WEAKNESS OF BOTH LEGS - Hearing Hearing: Normal Speech Evaluation - Communication Primary Language: ICELANDIC Communication: Yes: Within Normal Limits Oral Expression Ability: Yes: No Impairment - Speech Production Apraxia: No Able to Make Needs Known: Yes: WNL Intelligibility: Yes: WNL (Reportedly admitted to [facility] with slurred speech (now resolved).) - Speech Characteristics Voice Loudness: Normal Voice Pitch: Yes: Normal Voice Phonatory-based Quality: Yes: Normal Speech Pattern: Normal Nasal Resonance: Hyponasal/Denasal Articulation: Yes: Precise Rate of Speech: Intact Voice Comment: Vocal quality is denasal but functional for communication - Language/Auditory Comprehension Follows: Yes: 1 Stage Simple Commands (WFL), 2 Stage Simple Commands (WFL), Complex Commands (WFL) Observation: Able to respond to yes/no queries: Yes, Yes/No Confusion: No, Comprehends Conversational Speech: Yes, Benefits from Slow Speech: No (Not necessary), Benefits from Repetiton: No (Not necessary), Benefits from Increased Volume of Speech: No (Not necessary) - Language/Verbal Expression Able to Respond to Simple Queries: Yes: WNL Able to Communicate Wants and Needs: Yes: WNL Functional Communication Status: Yes: WNL Aware of Errors: Yes Attempts to Correct Errors: Yes Use of Gestures: Yes Written Expression: Not examined. Oral Expression: WFL Reading Comprehension: Not examined. 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: WNL Short Term Memory: Yes: WNL - Swallow Evaluation/Bedside Assessment Current Nutritional Intake: Soft (Chopped diet is listed in EMR), Honey Textured Liquids Oral Secretions: Yes: WFL Tracheostomy Present: No Patient on Ventilator: No Dentition: Yes: Adequate Facial Symmetry at Rest: Symmetrical Facial Symmetry on Retraction: Symmetrical Facial Movement: Controlled Sensation: Normal Facial Comment: WFL for speech and swallowing purposes Jaw Position: Closed at Rest Against Resistance Opening: Normal Against Resistance Closing: Normal Pucker Lips: Normal Smile: Normal Lips, Comment: WFL for speech and swallowing purposes Lingual Movement: Normal Lingual Speed of Movement: Normal Lingual Movement Strgth Against Opposition: Normal Lingual Movement Characteristics: Normal Lingual Comment: WFL for speech and swallowing purposes Soft Palate Description: Normal Color, Normal Arch Hard Palate Description: Normal Color, Normal Arch Gag Reflex: Strong Bite Reflex: Present Velopharyngeal Movement: Normal Laryngeal Elevation: WFL Laryngeal Movement: Able to Palpate, Labored,delay initiation (With liquids only.) Needs Assistance: No Rate of Intake: WFL Bolus Size: WFL Labial Seal: WFL Chewing: WFL Oral Prep Time: WFL A-P Transit: WFL Pocketing: None Timing of Swallow: Delayed (With liquids only.) Coughing/Throat Clear: No Change in Voice: No Other Findings/Remarks: 30 year old female seen at bedside for swallow eval to rule out dysphagia. Pt is verbal A&Ox3 cooperative. Able to follow directives. Admitted to [facility] with MS (flair up) generalized weakness of the lower extremities and slurred speech (now resolved). MHX includes MS (diagnosed 2013), DM DKA, and lupus. Pt presents with ataxic motor movement of her upper extremities. Pt reports she has a reduced appetite recently. Pt given po trials of puree, mech soft and soft diet with minimal assistance revealed good acceptance, adequate bolus manipulation and transport. Pharyngeal swallow appears timely with no evidence of aspiration-like behaviors , no cough or changes in respiration. Pt given po trials for ice chips, thin and thicken liquids without assistance revealed good acceptance, adequate labial containment and transport. Pharyngeal swallows appears labored in initiation. Pt uses a natural chin tuck to swallow all liquids. No evidence of aspiration-like behaviors, no cough or changes in respiration. Recommendations - Speech Evaluation, Impression/Plan Impression: 30 year old female presents with minimal s/s of pharyngeal phase dysphagia for liquids only. No evidence of aspiration-like behaviors, no cough or changes in respiration. Slurred speech appears to have been resolved at this time. Manager Internet Goals: Tolerate the least restrictive diet consistency with ut s/s of aspiration. - Dysphagia Impressions/Plan Swallowing Skills: Impaired (Pharyngeal phase with liquids.) Dysphagia Impressions: Minimal Impairment Dysphagia Treatment Plan: Small Bites, Chin Tuck/Down, Safe Rate, Elevate HOB during feed, Other (alternate liquids for every 2-3 bites of solids. Crush meds in applesauce for ease in swallowing.) Dysphagia Evaluation Summary: Pt presents with minimal pharyngeal phase dysphagia for liquids. No evidence of aspiration with solids and liquids at this time. Results given to charge aRN and to pcp via chart. Speech is within functional limits at this time. Recommendations: Modified Barium Swallow (consider to determine if there are any structural abnormalities affecting swallowing liquids.), Other (Nutritional counsultation to addess weight loss.) - Recommendations Diet Consistency: 1 - 2 Soft Items Medication Administration: Crushed with applesauce Liquids: [place] Thick
[2016-07-05] MEDS ORDERED: methylPREDNISolone NA SUCC 1000 MG/8 ML VIAL IVPB ONE (12:00)
[2016-07-05] MEDS: methylPREDNISolone NA SUCC 1000 MG/8 ML VIAL IVPB SCH (12:45)
[2016-07-05] MEDS: HYDROmorphone HCL CARPU-JECT 1 MG/1 ML DISP.SYRIN IVPB PRN ×2 (14:20→20:54)
--- NOTE | 2016-07-06 00:18 | PN ---
Progress Note, Physician Chief Complaint: weakness and difficulty ambulating and swallowing,sugars remain high History of Present Illness: iddm,type1 insulin pump user with basal bolus requirements higher since flare up of ms needing high dose steroids - Current Medication List Current Medications: Active Medications Acetaminophen (Tylenol -) 650 mg PO Q6H PRN PRN Reason: FEVER OR PAIN Baclofen (Lioresal -) 20 mg PO BID [facility] Last Admin: 07/05/16 22:02 Dose: 20 mg Bupropion HCl (Wellbutrin Xl -) 300 mg PO DAILY [facility] Last Admin: 07/05/16 10:01 Dose: 300 mg Docusate Sodium (Colace -) 100 mg PO DAILY [facility] Last Admin: 07/05/16 10:00 Dose: 100 mg Hydromorphone HCl (Dilaudid Injection -) 1 mg IVPB Q6H PRN PRN Reason: PAIN Last Admin: 07/05/16 20:54 Dose: 1 mg Insulin Aspart (Novolog Vial Sliding Scale -) 1 vial SQ ACHS [facility] PRN Reason: Protocol Methylprednisolone Sodium Succinate (Solu-Medrol -) 1,000 mg IVPB DAILY [facility] Stop: 07/06/16 10:01 Last Admin: 07/05/16 12:45 Dose: 1,000 mg Non-Formulary Medication (Norgestimate-Ethinyl Estradiol [Trinessa Tablet]) 1 each PO DAILY [facility] Last Admin: 07/04/16 10:00 Dose: 1 each Ondansetron HCl (Zofran Odt -) 4 mg SL Q6H PRN PRN Reason: NAUSEA AND/OR VOMITING Last Admin: 07/05/16 14:16 Dose: 4 mg Pantoprazole Sodium (Protonix -) 40 mg PO DAILY [facility] Last Admin: 07/05/16 10:00 Dose: 40 mg - Objective Vital Signs: Vital Signs Temperature 98.2 F 07/05/16 22:00 Pulse Rate 96 H 07/05/16 22:00 Respiratory Rate 18 07/05/16 22:00 Blood Pressure 122/68 07/05/16 22:00 O2 Sat by Pulse Oximetry (%) 100 07/05/16 08:34 Constitutional: Yes: Well Nourished, Calm Eyes: Yes: EOM Intact HENT: Yes: Normocephalic Neck: Yes: Trachea Midline Respiratory: Yes: CTA Bilaterally Gastrointestinal: Yes: Normal Bowel Sounds ...Rectal Exam: Yes: Deferred Genitourinary: Yes: WNL Breast(s): Yes: WNL Musculoskeletal: Yes: Back Pain, Joint Swelling, Muscle Pain, Muscle Weakness Extremities: Yes: Delayed Capillary Refill Edema: No Peripheral Pulses WNL: Yes Neurological: Yes: Alert, Oriented, Tingling, Tremors, Unsteady Gait, Weakness ...Motor Strength: LUE, LLE, RLE (weakness noted on exam) Labs: CBC, BMP 07/04/16 06:45 07/05/16 13:30 Problem List - Problems (1) Headache Code(s): R51 - HEADACHE Qualifiers: Headache type: other vascular headache Qualified Code(s): G44.1 - Vascular headache, not elsewhere classified (2) Multiple sclerosis Code(s): G35 - MULTIPLE SCLEROSIS (3) Multiple sclerosis exacerbation Code(s): G35 - MULTIPLE SCLEROSIS (4) Weakness of both legs Code(s): R29.898 - OTH SYMPTOMS AND SIGNS INVOLVING THE MUSCULOSKELETAL SYSTEM (5) 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 Code(s): E10.44 - TYPE 1 DIABETES MELLITUS WITH DIABETIC AMYOTROPHY Assessment/Plan Current Active Problems Diabetes mellitus (Acute) Headache (Acute) Insomnia (Acute) Multiple sclerosis (Acute) Multiple sclerosis exacerbation (Acute) Weakness of both legs (Acute) iddm type 1 neuropathy hyperglycemia insulin dependent diabetes mellitus Abnormal Lab Results 07/04/16 07/04/16 06:10 06:45 Random Glucose 255 H D Ur Leukocyte Esterase Trace H Laboratory Results - last 24 hr 07/04/16 07/04/16 07/04/16 06:10 06:45 06:45 WBC 9.6 RBC 4.15 Hgb 13.7 Hct 39.3 MCV 94.6 MCHC 34.8 RDW 12.2 Plt Count 205 MPV 9.9 Sodium 136 Potassium 4.2 Chloride 102 Carbon Dioxide 22 D Anion Gap 12 BUN 10 Creatinine 0.8 POC Glucometer Random Glucose 255 H D Calcium 8.8 Urine Color Yellow Urine Appearance Cloudy Urine pH 8.0 Ur Specific [place] 1.012 Urine Protein Negative Urine Glucose (UA) Negative Urine Ketones Negative Urine Blood Negative Urine Nitrite Negative Urine Bilirubin Negative Urine Urobilinogen Negative Ur Leukocyte Esterase Trace H Urine RBC 2 Urine WBC 1 Ur Epithelial Cells Moderate 07/04/16 21:18 WBC RBC Hgb Hct MCV MCHC RDW Plt Count MPV Sodium Potassium Chloride Carbon Dioxide Anion Gap BUN Creatinine POC Glucometer 318 Random Glucose Calcium Urine Color Urine Appearance Urine pH Ur Specific [place] Urine Protein Urine Glucose (UA) Urine Ketones Urine Blood Urine Nitrite Urine Bilirubin Urine Urobilinogen Ur Leukocyte Esterase Urine RBC Urine WBC Ur Epithelial Cells Laboratory Tests 07/04/16 07/04/16 06:45 21:18 Sodium 136 Potassium 4.2 Chloride 102 Carbon Dioxide 22 D Anion Gap 12 BUN 10 Creatinine 0.8 POC Glucometer 318 Random Glucose 255 H D plan: bgm qid patient using insulin pump basal bolus dosing given carb count and adjustment patient capable of using using pump adherent to teaching criteria with instruction by cde will notify if sugar over 350 mg/dl or below 50mg/dl ck hb a1c add higher doses of insulin basal rates mn 1.0u/hr 4am 1.3 630 am 1.4 u/hr with bolus achs meals
[2016-07-06] MEDS: DOCUSATE SODIUM 100 MG CAPSULE (FP) PO SCH (09:33)
[2016-07-06] MEDS: BACLOFEN 10 MG TABLET (FP) PO SCH ×2 (09:34→21:07)
[2016-07-06] MEDS: PANTOPRAZOLE 40 MG TABLET (FP) PO SCH (09:34)
[2016-07-06] MEDS: ONDANSETRON *ODT* 4 MG TABLET SL PRN (09:35)
[2016-07-06] MEDS: methylPREDNISolone NA SUCC 1000 MG/8 ML VIAL IVPB SCH (10:06)
--- NOTE | 2016-07-06 12:14 | PN ---
Progress Note (short form) - Note Progress Note: Neurology follow up Consult Consult Specialty:: Neurology Reason for Consultation:: Multiple sclerosis exacerbation - History of Present Illness History of Present Illness: 30 year old woman, history of relapsing remitting multiple sclerosis, follows with Dr Donaldson and currently maintained on copaxone, diabetes, lupus, presents with new onset of left sided weakness. The patient was diagnosed in 2013 with MS after noting new onset of right foot drag. Her mother has history of MS as well. Patient has been on multiple medical regimes for MS treatment, including tecfidera which caused GI upset, aubagio, and currently copaxone. Over the last month has noted worsening of baseline symptoms (right arm ataxia) and new onset of left sided weakness. She has previously been hospitalized for IV solumedrol. Last MRI brain was in September 2015. Currently denies UTI symptoms, fever or infectious symptoms. 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 ...LMP: 06/13/16 ...: No Endocrine: Yes: Diabetes Mellitus (on insulin pump) - Alcohol/Substance Use Hx Alcohol Use: No - Smoking History Smoking history: Former smoker Have you smoked in the past 12 months: Yes Aproximately how many cigarettes per day: 5 If you are a former smoker, when did you quit?: 2012 - Social History Usual Living Arrangement: With Significant Other Home Medications - Allergies Allergies/Adverse Reactions: Allergies Allergy/AdvReac Type Severity Reaction Status Date / Time Penicillins Allergy Mild Hives Verified 07/03/16 18:21 - Home Medications Home Medications: Ambulatory Orders Insulin Pump Syringe, 3 ml [Fifty50 [place]] 1 each ASDIR 12/25/12 Bupropion HCl [Wellbutrin Xl] 300 mg PO DAILY 10/06/15 Modafinil 200 mg PO DAILY 10/06/15 Norgestimate-Ethinyl Estradiol [Trinessa Tablet] 1 each PO DAILY 10/06/15 Baclofen 20 mg PO BID 07/03/16 Glatiramer Acetate [Copaxone] 40 mg SQ [facility] 07/03/16 Family Disease History - Family Disease History Family Disease History: Diabetes: Brother, Other: Mother (MS) Review of Systems - Review of Systems Constitutional: reports: No Symptoms Eyes: reports: No Symptoms HENT: reports: No Symptoms Cardiovascular: reports: No Symptoms Respiratory: reports: No Symptoms Neurological: reports: Incoordination, Unsteady Gait, Weakness Physical Exam Constitutional: Yes: No Distress Eyes: Yes: Conjunctiva Clear, EOM Intact HENT: Yes: Atraumatic, Normocephalic Cardiovascular: Yes: S1, S2 Respiratory: Yes: Regular Neurological: Yes: Other (awake, alert, knows name, age, month CNII-XII EOMI, visual lopez full, face symmetric, tongue midline Motor moderate left hemiparesis, left deltoid/bicep/tri 4/5, hip flexion, knee flexion 4-/5 right arm ataxia to finger nose finger sensory intact to light touch) Assessment/Plan 30 year old woman, history of relapsing remitting multiple sclerosis, follows with Dr Donaldson and currently maintained on copaxone, diabetes, lupus, presents with new onset of left sided weakness. The patient was diagnosed in 2013 with MS after noting new onset of right foot drag. Her mother has history of MS as well. Patient has been on multiple medical regimes for MS treatment, including tecfidera which caused GI upset, aubagio, and currently copaxone. Over the last month has noted worsening of baseline symptoms (right arm ataxia) and new onset of left sided weakness. She has previously been hospitalized for IV solumedrol. Last MRI brain was in September 2015. Currently denies UTI symptoms, fever or infectious symptoms. Multiple sclerosis exacerbation, right parietal centrum semiovale ring enhancing lesion Recommend Methylprednisolone 1 g IV for five days, currently day 3, plan for completion Sunday MRI brain and cervical spine with and without contrast- shows right parietal centrum semiovale ring enhancing lesion. MRI C spine ?C5 demyelinating plaque. Explained in detail to patient results of MRI PT/OT Recommend tertiary care MS center for further management post discharge, she already has an appointment at [facility] at end of the month
[2016-07-06] MEDS: HYDROmorphone HCL CARPU-JECT 1 MG/1 ML DISP.SYRIN IVPB PRN (15:10)
--- NOTE | 2016-07-06 17:54 | PN ---
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 Pt was scheduled for MBS today but has been re-scheduled. Pt reports that she is consuming solid meals without difficultly at this time. Still has mild difficulty with thin liquids but no s/s of aspiration. Recommendation continue current diet of soft solids and thin liquids as tolerated. Results given to charge entry and pcp via chart.
--- NOTE | 2016-07-06 21:45 | PN ---
Progress Note, Physician Chief Complaint: SEEN THIS AM FEELING A LITTLE BETTER - Current Medication List Current Medications: Active Medications Acetaminophen (Tylenol -) 650 mg PO Q6H PRN PRN Reason: FEVER OR PAIN Baclofen (Lioresal -) 20 mg PO BID [facility] Last Admin: 07/06/16 21:07 Dose: 20 mg Bupropion HCl (Wellbutrin Xl -) 300 mg PO DAILY [facility] Last Admin: 07/06/16 09:34 Dose: 300 mg Docusate Sodium (Colace -) 100 mg PO DAILY [facility] Last Admin: 07/06/16 09:33 Dose: 100 mg Hydromorphone HCl (Dilaudid Injection -) 1 mg IVPB Q6H PRN PRN Reason: PAIN Last Admin: 07/06/16 15:10 Dose: 1 mg Insulin Aspart (Novolog Vial Sliding Scale -) 1 vial SQ ACHS [facility] PRN Reason: Protocol Methylprednisolone Sodium Succinate (Solu-Medrol -) 1,000 mg IVPB DAILY [facility] Stop: 07/08/16 10:01 Non-Formulary Medication (Norgestimate-Ethinyl Estradiol [Trinessa Tablet]) 1 each PO DAILY [facility] Last Admin: 07/04/16 10:00 Dose: 1 each Ondansetron HCl (Zofran Odt -) 4 mg SL Q6H PRN PRN Reason: NAUSEA AND/OR VOMITING Last Admin: 07/06/16 09:35 Dose: 4 mg Pantoprazole Sodium (Protonix -) 40 mg PO DAILY [facility] Last Admin: 07/06/16 09:34 Dose: 40 mg - Objective Vital Signs: Vital Signs Temperature 97.9 F 07/06/16 17:10 Pulse Rate 78 07/06/16 17:10 Respiratory Rate 18 07/06/16 17:10 Blood Pressure 122/76 07/06/16 17:10 O2 Sat by Pulse Oximetry (%) 98 07/05/16 21:00 Constitutional: Yes: Mild Distress Eyes: Yes: WNL HENT: Yes: WNL Neck: Yes: WNL Cardiovascular: Yes: WNL Respiratory: Yes: WNL Gastrointestinal: Yes: WNL Genitourinary: Yes: WNL Musculoskeletal: Yes: Muscle Weakness Extremities: Yes: Other Edema: Yes Edema: LLE: Trace, RLE: Trace Peripheral Pulses WNL: Yes Integumentary: Yes: WNL Wound/Incision: Yes: Clean/Dry Neurological: Yes: Confusion, Loss of Sensation, Paresthesia, Pre-Existing Deficit, Tingling, Tremors, Unsteady Gait, Weakness ...Motor Strength: LLE, RLE Psychiatric: Yes: Agitated Labs: CBC, BMP 07/04/16 06:45 07/05/16 13:30 Problem List - Problems (1) Diabetes mellitus Code(s): E11.9 - TYPE 2 DIABETES MELLITUS WITHOUT COMPLICATIONS Qualifiers: Diabetes mellitus type: type 2 Diabetes mellitus complication detail: with other neurological complication (2) Headache Code(s): R51 - HEADACHE Qualifiers: Headache type: other vascular headache Qualified Code(s): G44.1 - Vascular headache, not elsewhere classified (3) Multiple sclerosis Code(s): G35 - MULTIPLE SCLEROSIS (4) Multiple sclerosis exacerbation Code(s): G35 - MULTIPLE SCLEROSIS (5) Weakness of both legs Code(s): R29.898 - OTH SYMPTOMS AND SIGNS INVOLVING THE MUSCULOSKELETAL SYSTEM (6) Ataxia Code(s): R27.0 - ATAXIA, UNSPECIFIED Assessment/Plan IV STEROIDS CONTINUE PAIN CONTROL OOB TO CHAIR SWALLOW EVAL RULE OUT ASPIRATIONS CHANGED TO CHOPPED DIET WITH HONEY THICK LIQUIDS UNTIL SWALLOW EVAL COMPLETE PAIN CONTROL MAY BENEFIT FROM SNF
[2016-07-07] MEDS: PANTOPRAZOLE 40 MG TABLET (FP) PO SCH (10:38)
[2016-07-07] MEDS: DOCUSATE SODIUM 100 MG CAPSULE (FP) PO SCH (10:38)
[2016-07-07] MEDS: BACLOFEN 10 MG TABLET (FP) PO SCH ×2 (10:38→21:01)
[2016-07-07] MEDS: methylPREDNISolone NA SUCC 1000 MG/8 ML VIAL IVPB SCH (10:39)
[2016-07-07] MEDS: ONDANSETRON *ODT* 4 MG TABLET SL PRN ×2 (11:18→18:07)
--- NOTE | 2016-07-07 12:21 | PN ---
Progress Note (short form) - Note Progress Note: Neurology follow up Consult Consult Specialty:: Neurology Reason for Consultation:: Multiple sclerosis exacerbation - History of Present Illness History of Present Illness: 30 year old woman, history of relapsing remitting multiple sclerosis, follows with Dr Donaldson and currently maintained on copaxone, diabetes, lupus, presents with new onset of left sided weakness. The patient was diagnosed in 2013 with MS after noting new onset of right foot drag. Her mother has history of MS as well. Patient has been on multiple medical regimes for MS treatment, including tecfidera which caused GI upset, aubagio, and currently copaxone. Over the last month has noted worsening of baseline symptoms (right arm ataxia) and new onset of left sided weakness. She has previously been hospitalized for IV solumedrol. Last MRI brain was in September 2015. Currently denies UTI symptoms, fever or infectious symptoms. 05/07 Patient seen and examined, reports some improvement in left side strength Day 2 steroids/5 Denies any side effects/ new neurological issues 05/08 Patient seen and examined Denies any new complaints, continues to have some left side weakness Day 3/5 steroids, complains of nausea no other appreciable side effects 05/09 Improved left side strength Day 4/5 steroids - Past Medical History [employer]ING [employer]: Yes: Multiple Sclerosis ...LMP: 06/13/16 ...: No Endocrine: Yes: Diabetes Mellitus (on insulin pump) - Alcohol/Substance Use Hx Alcohol Use: No - Smoking History Smoking history: Former smoker Have you smoked in the past 12 months: Yes Aproximately how many cigarettes per day: 5 If you are a former smoker, when did you quit?: 2012 - Social History Usual Living Arrangement: With Significant Other Home Medications - Allergies Allergies/Adverse Reactions: Allergies Allergy/AdvReac Type Severity Reaction Status Date / Time Penicillins Allergy Mild Hives Verified 07/03/16 18:21 - Home Medications Home Medications: Ambulatory Orders Insulin Pump Syringe, 3 ml [Fifty50 [place]] 1 each ASDIR 12/25/12 Bupropion HCl [Wellbutrin Xl] 300 mg PO DAILY 10/06/15 Modafinil 200 mg PO DAILY 10/06/15 Norgestimate-Ethinyl Estradiol [Trinessa Tablet] 1 each PO DAILY 10/06/15 Baclofen 20 mg PO BID 07/03/16 Glatiramer Acetate [Copaxone] 40 mg SQ [facility] 07/03/16 Family Disease History - Family Disease History Family Disease History: Diabetes: Brother, Other: Mother (MS) Review of Systems - Review of Systems Constitutional: reports: No Symptoms Eyes: reports: No Symptoms HENT: reports: No Symptoms Cardiovascular: reports: No Symptoms Respiratory: reports: No Symptoms Neurological: reports: Incoordination, Unsteady Gait, Weakness Physical Exam Constitutional: Yes: No Distress Eyes: Yes: Conjunctiva Clear, EOM Intact HENT: Yes: Atraumatic, Normocephalic Cardiovascular: Yes: S1, S2 Respiratory: Yes: Regular Neurological: Yes: Other (awake, alert, knows name, age, month CNII-XII EOMI, visual lopez full, face symmetric, tongue midline Motor moderate left hemiparesis, left deltoid/bicep/tri 4+/5, hip flexion, knee flexion 4+/5 right arm ataxia to finger nose finger sensory intact to light touch) Assessment/Plan 30 year old woman, history of relapsing remitting multiple sclerosis, follows with Dr Donaldson and currently maintained on copaxone, diabetes, lupus, presents with new onset of left sided weakness. The patient was diagnosed in 2013 with MS after noting new onset of right foot drag. Her mother has history of MS as well. Patient has been on multiple medical regimes for MS treatment, including tecfidera which caused GI upset, aubagio, and currently copaxone. Over the last month has noted worsening of baseline symptoms (right arm ataxia) and new onset of left sided weakness. She has previously been hospitalized for IV solumedrol. Last MRI brain was in September 2015. Currently denies UTI symptoms, fever or infectious symptoms. Multiple sclerosis exacerbation, right parietal centrum semiovale ring enhancing lesion Recommend Methylprednisolone 1 g IV for five days, currently day 4, complete tomorrow MRI brain and cervical spine with and without contrast- shows right parietal centrum semiovale ring enhancing lesion. MRI C spine ?C5 demyelinating plaque. Explained in detail to patient results of MRI PT/OT Recommend tertiary care MS center for further management post discharge, she already has an appointment at [facility] at end of the month Ok from neuro perspective to d/c tomorrow after last dose of steroids
--- NOTE | 2016-07-07 15:43 | PN ---
Progress Note, Physician Chief Complaint: AWAKE FEELING BETTER - Current Medication List Current Medications: Active Medications Acetaminophen (Tylenol -) 650 mg PO Q6H PRN PRN Reason: FEVER OR PAIN Baclofen (Lioresal -) 20 mg PO BID [facility] Last Admin: 07/07/16 10:38 Dose: 20 mg Bupropion HCl (Wellbutrin Xl -) 300 mg PO DAILY [facility] Last Admin: 07/07/16 10:38 Dose: 300 mg Docusate Sodium (Colace -) 100 mg PO DAILY [facility] Last Admin: 07/07/16 10:38 Dose: 100 mg Hydromorphone HCl (Dilaudid Injection -) 1 mg IVPB Q6H PRN PRN Reason: PAIN Last Admin: 07/06/16 15:10 Dose: 1 mg Insulin Aspart (Novolog Vial Sliding Scale -) 1 vial SQ ACHS [facility] PRN Reason: Protocol Methylprednisolone Sodium Succinate (Solu-Medrol -) 1,000 mg IVPB DAILY [facility] Stop: 07/08/16 10:01 Last Admin: 07/07/16 10:39 Dose: 1,000 mg Non-Formulary Medication (Norgestimate-Ethinyl Estradiol [Trinessa Tablet]) 1 each PO DAILY [facility] Last Admin: 07/04/16 10:00 Dose: 1 each Ondansetron HCl (Zofran Odt -) 4 mg SL Q6H PRN PRN Reason: NAUSEA AND/OR VOMITING Last Admin: 07/07/16 11:18 Dose: 4 mg Pantoprazole Sodium (Protonix -) 40 mg PO DAILY [facility] Last Admin: 07/07/16 10:38 Dose: 40 mg - Objective Vital Signs: Vital Signs Temperature 98.1 F 07/07/16 15:10 Pulse Rate 86 07/07/16 15:10 Respiratory Rate 20 07/07/16 15:10 Blood Pressure 128/70 07/07/16 15:10 O2 Sat by Pulse Oximetry (%) 98 07/06/16 21:00 Constitutional: Yes: Mild Distress Eyes: Yes: WNL HENT: Yes: WNL Neck: Yes: WNL Cardiovascular: Yes: WNL Respiratory: Yes: WNL Gastrointestinal: Yes: WNL Genitourinary: Yes: WNL Musculoskeletal: Yes: Muscle Weakness Extremities: Yes: WNL Edema: No Peripheral Pulses WNL: Yes Integumentary: Yes: WNL Wound/Incision: Yes: Clean/Dry Neurological: Yes: Pre-Existing Deficit, Unsteady Gait ...Motor Strength: LLE, RLE Psychiatric: Yes: WNL Labs: CBC, BMP 07/04/16 06:45 07/05/16 13:30 Problem List - Problems (1) Diabetes mellitus Code(s): E11.9 - TYPE 2 DIABETES MELLITUS WITHOUT COMPLICATIONS Qualifiers: Diabetes mellitus type: type 2 Diabetes mellitus complication detail: with other neurological complication (2) Headache Code(s): R51 - HEADACHE Qualifiers: Headache type: other vascular headache Qualified Code(s): G44.1 - Vascular headache, not elsewhere classified (3) Multiple sclerosis Code(s): G35 - MULTIPLE SCLEROSIS (4) Multiple sclerosis exacerbation Code(s): G35 - MULTIPLE SCLEROSIS (5) Weakness of both legs Code(s): R29.898 - OTH SYMPTOMS AND SIGNS INVOLVING THE MUSCULOSKELETAL SYSTEM (6) Ataxia Code(s): R27.0 - ATAXIA, UNSPECIFIED Assessment/Plan IV STEROIDS CONTINUE PAIN CONTROL OOB TO CHAIR SWALLOW EVAL RULE OUT ASPIRATIONS CHANGED TO CHOPPED DIET WITH HONEY THICK LIQUIDS UNTIL SWALLOW EVAL COMPLETE PAIN CONTROL MAY BENEFIT FROM SNF
[2016-07-07] MEDS ORDERED: INSULIN (NOVOLOG) ASPART 100 UNITS/ML 10ML VIAL ONE (21:35)
[2016-07-08 09:33] LABS: MCH 32.2 pg (25.7-33.7); MCHC 33.8 g/dl (32.0-36.0); MEAN CELL VOLUME 95.3 fl (80-96); MEAN PLT VOLUME 10.1 fl (7.5-11.1); PLATELET COUNT 234 K/MM3 (134-434); RDW 12.2 % (11.6-15.6); WHITE BLOOD COUNT 12.3 K/mm3 (4.0-10.0)
[2016-07-08] MEDS ORDERED: PT OWN MED DRAWER 7, Y5N ONE (09:35)
[2016-07-08] MEDS: BACLOFEN 10 MG TABLET (FP) PO SCH (09:47)
[2016-07-08] MEDS: DOCUSATE SODIUM 100 MG CAPSULE (FP) PO SCH (09:47)
[2016-07-08] MEDS: methylPREDNISolone NA SUCC 1000 MG/8 ML VIAL IVPB SCH (09:48)
[2016-07-08] MEDS: PANTOPRAZOLE 40 MG TABLET (FP) PO SCH (09:48)
[2016-07-08 10:06] LABS: ALBUMIN 4.1 g/dl (3.4-5.0); ANION GAP 11 (8-16); CALCIUM 9.4 mg/dL (8.5-10.1); CO2 29 mmol/L (21-32); GLUCOSE,RANDOM 64 mg/dL (74-106)
[2016-07-08 10:11] LABS: ALK PHOS 53 U/L (45-117); BILIRUBIN,TOTAL 0.7 mg/dL (0.2-1.0); SGOT/AST 5 U/L (15-37); SGPT/ALT 19 U/L (12-78); TOT PROT 7.1 g/dl (6.4-8.2)
[2016-07-08] MEDS ORDERED: [UNRECOGNIZED DRUG - OTHER] SQ SCH (11:00)
[2016-07-08] MEDS ORDERED: INSULIN LISPRO SQ SCH (11:00)
--- NOTE | 2016-07-08 13:18 | PN ---
Progress Note (short form) - Note Progress Note: Neurology follow up Consult Consult Specialty:: Neurology Reason for Consultation:: Multiple sclerosis exacerbation - History of Present Illness History of Present Illness: 30 year old woman, history of relapsing remitting multiple sclerosis, follows with Dr Donaldson and currently maintained on copaxone, diabetes, lupus, presents with new onset of left sided weakness. The patient was diagnosed in 2013 with MS after noting new onset of right foot drag. Her mother has history of MS as well. Patient has been on multiple medical regimes for MS treatment, including tecfidera which caused GI upset, aubagio, and currently copaxone. Over the last month has noted worsening of baseline symptoms (right arm ataxia) and new onset of left sided weakness. She has previously been hospitalized for IV solumedrol. Last MRI brain was in September 2015. Currently denies UTI symptoms, fever or infectious symptoms. 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 ...LMP: 06/13/16 ...: No Endocrine: Yes: Diabetes Mellitus (on insulin pump) - Alcohol/Substance Use Hx Alcohol Use: No - Smoking History Smoking history: Former smoker Have you smoked in the past 12 months: Yes Aproximately how many cigarettes per day: 5 If you are a former smoker, when did you quit?: 2012 - Social History Usual Living Arrangement: With Significant Other Home Medications - Allergies Allergies/Adverse Reactions: Allergies Allergy/AdvReac Type Severity Reaction Status Date / Time Penicillins Allergy Mild Hives Verified 07/03/16 18:21 - Home Medications Home Medications: Ambulatory Orders Insulin Pump Syringe, 3 ml [Fifty50 [place]] 1 each ASDIR 12/25/12 Bupropion HCl [Wellbutrin Xl] 300 mg PO DAILY 10/06/15 Modafinil 200 mg PO DAILY 10/06/15 Norgestimate-Ethinyl Estradiol [Trinessa Tablet] 1 each PO DAILY 10/06/15 Baclofen 20 mg PO BID 07/03/16 Glatiramer Acetate [Copaxone] 40 mg SQ TUTHSA 07/03/16 Family Disease History - Family Disease History Family Disease History: Diabetes: Brother, Other: Mother (MS) Review of Systems - Review of Systems Constitutional: reports: No Symptoms Eyes: reports: No Symptoms HENT: reports: No Symptoms Cardiovascular: reports: No Symptoms Respiratory: reports: No Symptoms Neurological: reports: Incoordination, Unsteady Gait, Weakness Physical Exam Constitutional: Yes: No Distress Eyes: Yes: Conjunctiva Clear, EOM Intact HENT: Yes: Atraumatic, Normocephalic Cardiovascular: Yes: S1, S2 Respiratory: Yes: Regular Neurological: Yes: Other (awake, alert, knows name, age, month CNII-XII EOMI, visual lopez full, face symmetric, tongue midline Motor moderate left hemiparesis, left deltoid/bicep/tri 4+/5, hip flexion, knee flexion 4+/5 right arm ataxia to finger nose finger sensory intact to light touch; gait wide based) Assessment/Plan 30 year old woman, history of relapsing remitting multiple sclerosis, follows with Dr Donaldson and currently maintained on copaxone, diabetes, lupus, presents with new onset of left sided weakness. The patient was diagnosed in 2013 with MS after noting new onset of right foot drag. Her mother has history of MS as well. Patient has been on multiple medical regimes for MS treatment, including tecfidera which caused GI upset, aubagio, and currently copaxone. Over the last month has noted worsening of baseline symptoms (right arm ataxia) and new onset of left sided weakness. She has previously been hospitalized for IV solumedrol. Last MRI brain was in September 2015. Currently denies UTI symptoms, fever or infectious symptoms. MRI brain and cervical spine with and without contrast- shows right parietal centrum semiovale ring enhancing lesion. MRI C spine ?C5 demyelinating plaque. Multiple sclerosis exacerbation, right parietal centrum semiovale ring enhancing lesion Recommend Methylprednisolone 1 g IV 5/5 completed Recommend tertiary care MS center for further management post discharge, she already has an appointment at [facility] at end of the month [place] from neuro perspective for discharge
[2016-07-08] MEDS: ONDANSETRON *ODT* 4 MG TABLET SL PRN (14:00)
[2016-07-08 15:13] VITALS: BP 123/66; PULSE 83; TEMP 98.8
--- NOTE | 2016-07-08 15:40 | DS ---
Physical Examination Vital Signs: Vital Signs Temperature 98.8 F 07/08/16 14:30 Pulse Rate 83 07/08/16 14:30 Respiratory Rate 18 07/08/16 14:30 Blood Pressure 123/66 07/08/16 14:30 O2 Sat by Pulse Oximetry (%) 98 07/08/16 09:00 Cardiovascular: Yes: Regular Rate and Rhythm Respiratory: Yes: Regular, CTA Bilaterally Gastrointestinal: Yes: Normal Bowel Sounds, Soft Neurological: Yes: Alert, Oriented, Pre-Existing Deficit, Weakness Labs: CBC, BMP 07/08/16 08:00 07/08/16 06:00 Discharge Summary Reason For Visit: M/S EXACERBATION WEAKNESS OF BOTH LEGS Current Active Problems Diabetes mellitus (Acute) Headache (Acute) Insomnia (Acute) Multiple sclerosis (Acute) Multiple sclerosis exacerbation (Acute) 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 LNMP: two weeks ago. PAST MEDICAL HISTORY: Type II Diabetes, DKA, Lupus, MS - Problems (1) Diabetes mellitus plan: bgm qid patient using insulin pump basal bolus dosing given carb count and adjustment patient capable of using using pump adherent to teaching criteria with instruction by cde will notify if sugar over 350 mg/dl or below 50mg/dl ck hb a1c add higher doses of insulin basal rates mn 1.0u/hr 4am 1.3 630 am 1.4 u/hr with bolus achs meals Code(s): E11.9 - TYPE 2 DIABETES MELLITUS WITHOUT COMPLICATIONS Qualifiers: Diabetes mellitus type: type 2 Diabetes mellitus complication detail: with other neurological complication (2) Headache Code(s): R51 - HEADACHE Qualifiers: Headache type: other vascular headache Qualified Code(s): G44.1 - Vascular headache, not elsewhere classified (3) Multiple sclerosis 30 year old woman, history of relapsing remitting multiple sclerosis, follows with Dr Donaldson and currently maintained on copaxone, diabetes, lupus, presents with new onset of left sided weakness. The patient was diagnosed in 2013 with MS after noting new onset of right foot drag. Her mother has history of MS as well. Patient has been on multiple medical regimes for MS treatment, including tecfidera which caused GI upset, aubagio, and currently copaxone. Over the last month has noted worsening of baseline symptoms (right arm ataxia) and new onset of left sided weakness. She has previously been hospitalized for IV solumedrol. Last MRI brain was in September 2015. Currently denies UTI symptoms, fever or infectious symptoms. MRI brain and cervical spine with and without contrast- shows right parietal centrum semiovale ring enhancing lesion. MRI C spine ?C5 demyelinating plaque. Multiple sclerosis exacerbation, right parietal centrum semiovale ring enhancing lesion Recommend Methylprednisolone 1 g IV 5/5 completed Recommend tertiary care MS center for further management post discharge, she already has an appointment at [facility] at end of the month [place] from neuro perspective for discharge Code(s): G35 - MULTIPLE SCLEROSIS (4) Multiple sclerosis exacerbation Code(s): G35 - MULTIPLE SCLEROSIS (5) Weakness of both legs Code(s): R29.898 - OTH SYMPTOMS AND SIGNS INVOLVING THE MUSCULOSKELETAL SYSTEM (6) Ataxia IMPROVED OUTPATIENT F/U Code(s): R27.0 - ATAXIA, UNSPECIFIED - Instructions Diet, Activity, Other Instructions: ms meds per neurology Referrals: Harvinder Vasquez MD [Primary Care Provider] - Fam Lux MD [Staff Physician] - - Home Medications Comprehensive Discharge Medication List: Ambulatory Orders Insulin Pump Syringe, 3 ml [Fifty50 [place]] 1 each ASDIR 12/25/12 Bupropion HCl [Wellbutrin Xl] 300 mg PO DAILY 10/06/15 Modafinil 200 mg PO DAILY 10/06/15 Norgestimate-Ethinyl Estradiol [Trinessa Tablet] 1 each PO DAILY 10/06/15 Baclofen 20 mg PO BID 07/03/16 Glatiramer Acetate [Copaxone] 40 mg SQ TUTHSA 07/03/16 Ondansetron [Zofran -] 4 mg PO TID #20 tablet 07/08/16 Pantoprazole Sodium [Protonix -] 40 mg PO DAILY #30 tablet.ec 07/08/16
== END 2016-07-08 17:28 | disposition home or self-care (01) | DRG 60 ==
LOC: JER 18:15 → JERBED 07-04 01:27 → J5S 07-04 17:25
PROVIDERS: ADMIT Family Medicine; ATTEND Family Medicine
DX: G35 Multiple sclerosis (principal); M32.9 Systemic lupus erythematosus, unspecified; Z79.4 Long term (current) use of insulin; Z88.0 Allergy status to penicillin; Z87.891 Personal history of nicotine dependence; R27.0 Ataxia, unspecified; R51 Headache; E10.40 Type 1 diabetes mellitus with diabetic neuropathy, unspecified; R26.81 Unsteadiness on feet; R13.13 Dysphagia, pharyngeal phase; G47.00 Insomnia, unspecified; E10.65 Type 1 diabetes mellitus with hyperglycemia; G93.9 Disorder of brain, unspecified; I10 Essential (primary) hypertension
CPT/HCPCS: 36415; 70553-TC; 72156-TC; 74230-TC; 80048; 80053; 80061; 81003; 81015; 82947; 83036; 83721; 83735; 84703; 85025; 85027; 92611-GN; 93005; 93010; 97116-GP; 97161-GP; 99285-25; C1887; J0475

== ENCOUNTER 2016-12-27 02:33 | Inpatient (IN) | payer OTHER ==
[2016-12-27 03:45] VITALS: BMI 22.1
[2016-12-27] MEDS ORDERED: methylPREDNISolone NA SUCC 125 MG/2 ML VIAL IVPB ONE (03:49)
[2016-12-27] MEDS ORDERED: SODIUM CHLORIDE 500 ML IV STA (03:49)
--- NOTE | 2016-12-27 04:09 | PDOC ---
History of Present Illness - General Chief Complaint: Pain, Acute Stated Complaint: PAIN/MS Time Seen by Provider: 12/27/16 03:17 History Source: Patient Exam Limitations: No Limitations - History of Present Illness Initial Comments: 12/27/16 03:50 31yo Female patient w/ PmHx: DM, Progressive MS, and Lupus, presents to ED c/o increased weakness, frequent falls, trouble swallowing, tremors, numbness and tingling in hands and feet for past few days. Patient states she spoke with her Neurologist and was instructed to come to ED for admission and IV steroids. Patient denies chest pain, diff breathing, rash, abdominal pain, back pain, n/v/ d, hematuria, dysuria, or any other complaints at this time. Neuro- Dr. Marcellus SINGER- Vinicio Past History - Travel Traveled outside of the country in the last 30 days: No Close contact w/someone who was outside of country & ill: No - Past Medical History Allergies/Adverse Reactions: Allergies Allergy/AdvReac Type Severity Reaction Status Date / Time Penicillins Allergy Mild Hives Verified 07/03/16 18:21 Home Medications: Ambulatory Orders Insulin Pump Syringe, 3 ml [Fifty50 [place]] 1 each MC ASDIR 12/25/12 Bupropion HCl [Wellbutrin Xl] 300 mg PO DAILY 10/06/15 Modafinil 200 mg PO DAILY 10/06/15 Norgestimate-Ethinyl Estradiol [Trinessa Tablet] 1 each PO DAILY 10/06/15 Baclofen 20 mg PO BID 07/03/16 Glatiramer Acetate [Copaxone] 40 mg SQ TUTHSA 07/03/16 Ondansetron [Zofran -] 4 mg PO TID #20 tablet 07/08/16 Pantoprazole Sodium [Protonix -] 40 mg PO DAILY #30 tablet.ec 07/08/16 Anemia: No Asthma: No Cancer: No Cardiac Disorders: No CVA: No COPD: No DVT: No Dementia: No Diabetes: Yes (IDDM on pump) Dialysis: No GI Disorders: No Disorders: No HTN: No Hypercholesterolemia: No Kidney Stones: No Liver Disease: No Psychiatric Problems: No Seizures: No Thyroid Disease: No Lung CA: No Other medical history: MS - Surgical History Orthopedic Surgery: Yes (R. Knee 2004) - Family Disease History Family Disease History: Diabetes: Brother, Other: Mother (ms) - Suicide/Smoking/Psychosocial Hx Smoking Status: Yes Smoking History: Former smoker Have you smoked in the past 12 months: No Number of Cigarettes Smoked Daily: 5 If you are a former smoker, when did you quit?: 2012 Information on smoking cessation initiated: No 'Breaking Loose' booklet given: 09/18/13 Hx Alcohol Use: No Drug/Substance Use Hx: Yes (Marijuana) Substance Use Type: Marijuana Hx Substance Use Treatment: No Review of Systems - Review of Systems Able to Perform ROS?: Yes Is the patient limited Slovak proficient: No Constitutional: Yes: Weakness. No: Chills, Fever Musculoskeletal: Yes: Muscle Pain, Muscle Weakness. No: Back Pain Integumentary: No: Erythema, Rash Neurological: Yes: Numbness, Tingling, Tremors, Weakness, Unsteady Gait. No: Headache, Paresthesia, Seizure, Ataxia, Dizziness All Other Systems: Reviewed and Negative *Physical Exam - Vital Signs Last Vital Signs Temp Pulse Resp BP Pulse Ox 98.2 F 88 18 115/83 100 12/27/16 03:22 12/27/16 03:22 12/27/16 03:22 12/27/16 03:22 12/27/16 03:22 - Physical Exam General Appearance: Yes: Nourished, Appropriately Dressed. No: Apparent Distress, Mild Distress, Moderate Distress, Severe Distress Neck: positive: Trachea midline, Supple. negative: Rigid, Stridor, Lymphadenopathy (R), Lymphadenopathy (L) Respiratory/Chest: positive: Lungs Clear, Normal Breath Sounds. negative: Chest Tender, Respiratory Distress, Accessory Muscle Use, Labored Respiration, Rapid RR, Rhonchi, Stridor, Wheezing Cardiovascular: positive: Regular Rhythm, Regular Rate Gastrointestinal/Abdominal: positive: Normal Bowel Sounds, Soft. negative: Distended, Guarding, Rebound, Tenderness Musculoskeletal: positive: Normal Inspection. negative: CVA Tenderness Extremity: positive: Normal Capillary Refill, Normal Inspection, Normal Range of Motion. negative: Pedal Edema, Swelling, Calf Tenderness, Erythema, Inflammation Integumentary: positive: Normal Color, Dry, Warm Neurologic: positive: trash hauler II-XII NML intact, Fully Oriented, Alert, Normal Mood/ Affect, Normal Response, Motor Strength 08/11 ED Treatment Course - LABORATORY CBC & Chemistry Diagram: 12/27/16 04:22 12/27/16 04:22 - RADIOLOGY Radiology Studies Ordered: Category Date Time Status CHEST PA & LAT [RAD] Stat Radiology 12/27/16 03:49 Ordered *DC/Admit/Observation/Transfer Diagnosis at time of Disposition: Multiple sclerosis exacerbation - Discharge Dispostion Condition at time of disposition: Fair Admit: Yes
[2016-12-27] MEDS ORDERED: methylPREDNISolone NA SUCC 125 MG/2 ML VIAL ONE (04:25)
[2016-12-27 04:30] LABS: BASOPHIL 1.5 % (0-2.0); EOSINOPHIL 4.2 % (0-4.5); MCHC 34.5 g/dl (32.0-36.0); MEAN CELL VOLUME 95.5 fl (80-96); MEAN PLT VOLUME 10.2 fl (7.5-11.1); PLATELET COUNT 249 K/MM3 (134-434); WHITE BLOOD COUNT 9.7 K/mm3 (4.0-10.0)
[2016-12-27 04:57] LABS: ALBUMIN 3.8 g/dl (3.4-5.0); ANION GAP 7 (8-16); BILIRUBIN,TOTAL 0.3 mg/dL (0.2-1.0); C-REACTIVE PROTEIN < 0.3 MG/DL (0.00-0.3); CALCIUM 8.6 mg/dL (8.5-10.1); CO2 29 mmol/L (21-32); CREATININE 0.8 mg/dL (0.55-1.02); GLUCOSE,RANDOM 168 mg/dL (74-106); SGOT/AST 6 U/L (15-37); SGPT/ALT 17 U/L (12-78); TOT PROT 6.5 g/dl (6.4-8.2)
[2016-12-27 04:58] LABS: ALK PHOS 66 U/L (45-117)
[2016-12-27] MEDS ORDERED: ACETAMINOPHEN 325 MG TABLET (FP) PO PRN (07:50)
[2016-12-27] MEDS: BACLOFEN 10 MG TABLET (FP) PO SCH ×2 (10:12→21:23)
--- NOTE | 2016-12-27 10:32 | EKG ---
Test Reason : Blood Pressure : / mmHG Vent. Rate : 071 BPM Atrial Rate : 071 BPM P-R Int : 156 ms QRS Dur : 084 ms QT Int : 406 ms P-R-T Axes : 070 064 064 degrees QTc Int : 441 ms NORMAL SINUS RHYTHM NORMAL ECG WHEN COMPARED WITH ECG OF 03-JUL-2016 21:53, NO SIGNIFICANT CHANGE WAS FOUND Confirmed by LILIBETH GARCIA MD ([id number]) on 12/27/2016 10:31:48 AM Referred By: Confirmed By:LILIBETH GARCIA MD
[2016-12-27] MEDS: INSULIN SLIDING SCALE (NOVOLOG) 1 VIAL SQ SCH ×3 (11:17→21:25)
--- NOTE | 2016-12-27 18:01 | HP ---
Admitting History and Physical - Primary Care Physician PCP: Fam Lux ([place], [place]) - Admission Chief Complaint: Exacerbation of Multiple Sclerosis, weakness, Falls History of Present Illness: Ms. Thompson, a pleasant 31 year old femal came in to [facility] through ER for increased weakness, falls x 3, trouble swallowing, tremors, numbness and tingling in hands and feet for past 2 weeks. Patient has history of progressive Multiple Sclerosis, sees Dr Mary Germain at [place]. She is currently also being monitored for a brain and thoracic spine lesion and requires follow up MRI. She does have difficulty breathing at time or feels her chest is heavy. She denies chest pain, rashes, abdominal pain, nausea, vomiting, diarrhea or incontinence at this time. History Source: Patient Limitations to Obtaining History: No Limitations - Past Medical History SITE MEDICAL DIRECTOR: Yes: Multiple Sclerosis ...LMP: 12/13/16 ...: No Endocrine: Yes: Diabetes Mellitus (on insulin pump) - Smoking History Smoking history: Former smoker Have you smoked in the past 12 months: No Aproximately how many cigarettes per day: 5 If you are a former smoker, when did you quit?: 2013 - Alcohol/Substance Use Hx Alcohol Use: No Home Medications - Allergies Allergies/Adverse Reactions: Allergies Allergy/AdvReac Type Severity Reaction Status Date / Time Penicillins Allergy Mild Hives Verified 07/03/16 18:21 - Home Medications Home Medications: Ambulatory Orders Insulin Pump Syringe, 3 ml [Fifty50 [place]] 1 each MC ASDIR 12/25/12 Bupropion HCl [Wellbutrin Xl] 300 mg PO DAILY 10/06/15 Modafinil 200 mg PO DAILY 10/06/15 Norgestimate-Ethinyl Estradiol [Trinessa Tablet] 1 each PO DAILY 10/06/15 Baclofen 20 mg PO BID 07/03/16 Ocrelizumab [Ocrevus] 300 mg IV MONTHLY 12/27/16 Family Disease History - Family Disease History Family Disease History: Diabetes: Brother, Other: Mother (MS) Review of Systems - Review of Systems Constitutional: reports: Weakness Eyes: reports: No Symptoms HENT: reports: No Symptoms Neck: reports: No Symptoms Cardiovascular: reports: Shortness of Breath Respiratory: reports: SOB, SOB on Exertion Gastrointestinal: reports: No Symptoms Genitourinary: reports: No Symptoms Breasts: reports: No Symptoms Reported Musculoskeletal: reports: Muscle Weakness Integumentary: reports: No Symptoms Neurological: reports: Incoordination, Numbness, Tremors, Unsteady Gait, Weakness Endocrine: reports: No Symptoms Hematology/Lymphatic: reports: No Symptoms Psychiatric: reports: No Symptoms Pain Intensity: 0 Physical Examination Vital Signs: Vital Signs Temperature 98.1 F 12/27/16 17:43 Pulse Rate 86 12/27/16 17:43 Respiratory Rate 12/27/16 17:43 Blood Pressure 123/76 12/27/16 17:43 O2 Sat by Pulse Oximetry (%) 98 12/27/16 08:38 Constitutional: Yes: Well Nourished, No Distress, Calm Cardiovascular: Yes: Regular Rate and Rhythm Respiratory: Yes: Regular Gastrointestinal: Yes: Normal Bowel Sounds Musculoskeletal: Yes: Muscle Weakness (left>right) Extremities: Yes: Other (LLE weakness) Edema: No Peripheral Pulses WNL: Yes Integumentary: Yes: WNL Neurological: Yes: Alert, Oriented ...Motor Strength: LUE (4/5), LLE (3/5), RUE (4/5), RLE (4/5) Psychiatric: Yes: Alert, Oriented Problem List - Problems (1) Diabetes mellitus Assessment/Plan: -has her own insulin pump, adjusted by Dr Lux earlier today -POC glucose -Diabetic diet Code(s): E11.9 - TYPE 2 DIABETES MELLITUS WITHOUT COMPLICATIONS Qualifiers: Diabetes mellitus type: type 1 Diabetes mellitus complication detail: with other neurological complication (2) Multiple sclerosis exacerbation Assessment/Plan: -Neurology consult for Dr Paul, she was seen by Dr Jensen earlier this year -1g methylprednisolone daily for MS exacerbation -repeat MRI brain and thoracic spine Code(s): G35 - MULTIPLE SCLEROSIS (3) Tremor Code(s): R25.1 - TREMOR, UNSPECIFIED (4) Brain lesion Assessment/Plan: -MRI with and without contrast -also thoracic spine MRI w/wo contrast Code(s): G93.9 - DISORDER OF BRAIN, UNSPECIFIED Assessment/Plan see problem list
[2016-12-27] MEDS: methylPREDNISolone NA SUCC 1000 MG/8 ML VIAL IVPB SCH (19:59)
--- NOTE | 2016-12-27 21:58 | CONSULT ---
Consult Consult Specialty:: endocrine Referred by:: tariq florence NP Reason for Consultation:: diabetes melliuts type 1 - History of Present Illness Chief Complaint: higher blood sugars History of Present Illness: 31 year old femal came in to [facility] through ER for increased weakness, falls x 3, trouble swallowing, tremors, numbness and tingling in hands and feet for past 2 weeks. Patient has history of progressive Multiple Sclerosis, sees Dr Mary Germain at [facility]. She is currently also being monitored for a brain and thoracic spine lesion and requires follow up MRI. has had improved ms symtpoms with high dose steroids in past,despite elevated sugars while on insulin pump basal bolus insulin therapy - History Source History Provided By: Patient - Past Medical History SAP SOLUTIONS ARCHITECT: Yes: Multiple Sclerosis ...LMP: 12/13/16 ...: No Endocrine: Yes: Diabetes Mellitus (on insulin pump) - Alcohol/Substance Use Hx Alcohol Use: No - Smoking History Smoking history: Former smoker Have you smoked in the past 12 months: No Aproximately how many cigarettes per day: 5 If you are a former smoker, when did you quit?: 2013 - Social History Usual Living Arrangement: With Significant Other Home Medications - Allergies Allergies/Adverse Reactions: Allergies Allergy/AdvReac Type Severity Reaction Status Date / Time Penicillins Allergy Mild Hives Verified 07/03/16 18:21 - Home Medications Home Medications: Ambulatory Orders Insulin Pump Syringe, 3 ml [Fifty50 [place]] 1 each ASDIR 12/25/12 Bupropion HCl [Wellbutrin Xl] 300 mg PO DAILY 10/06/15 Modafinil 200 mg PO DAILY 10/06/15 Norgestimate-Ethinyl Estradiol [Trinessa Tablet] 1 each PO DAILY 10/06/15 Baclofen 20 mg PO BID 07/03/16 Ocrelizumab [Ocrevus] 300 mg IV MONTHLY 12/27/16 Family Disease History - Family Disease History Family Disease History: Diabetes: Brother, Other: Mother (MS) Review of Systems - Review of Systems Constitutional: reports: Lethargy, Loss of Appetite, Malaise, Weakness Eyes: reports: Blurred Vision, Double Vision HENT: reports: Difficult Swallowing, Throat Pain Neck: reports: Decreased ROM Cardiovascular: reports: Shortness of Breath Respiratory: reports: Exercise Intolerance, SOB, SOB on Exertion Gastrointestinal: reports: Bloating, Constipation, Nausea Genitourinary: reports: Frequency, Urgency Breasts: reports: No Symptoms Reported Musculoskeletal: reports: Extremity Pain, Muscle Pain, Muscle Cramps, Muscle Weakness Neurological: reports: Dizziness, Headache, Incoordination, Numbness, Parasthesia, Unsteady Gait, Weakness Endocrine: reports: Unexplained Weight Gain Physical Exam Vital Signs: Vital Signs Temperature 98.1 F 12/27/16 17:43 Pulse Rate 86 12/27/16 17:43 Respiratory Rate 12/27/16 17:43 Blood Pressure 123/76 12/27/16 17:43 O2 Sat by Pulse Oximetry (%) 98 12/27/16 08:38 Constitutional: Yes: Anxious Eyes: Yes: EOM Intact HENT: Yes: Normocephalic Neck: Yes: Trachea Midline Cardiovascular: Yes: Regular Rate and Rhythm Respiratory: Yes: CTA Bilaterally Gastrointestinal: Yes: Normal Bowel Sounds ...Rectal Exam: Yes: Deferred Renal/: Yes: WNL Breast(s): Yes: WNL Musculoskeletal: Yes: Joint Stiffness, Joint Swelling, Muscle Weakness Extremities: Yes: WNL Edema: No Integumentary: Yes: WNL Neurological: Yes: Alert, Oriented Problem List - Problems (1) Brain lesion Code(s): G93.9 - DISORDER OF BRAIN, UNSPECIFIED (2) Diabetes mellitus Code(s): E11.9 - TYPE 2 DIABETES MELLITUS WITHOUT COMPLICATIONS Qualifiers: Diabetes mellitus type: type 1 Diabetes mellitus complication detail: with other neurological complication (3) Headache Code(s): R51 - HEADACHE Qualifiers: Headache type: other vascular headache Qualified Code(s): G44.1 - Vascular headache, not elsewhere classified (4) Insomnia Code(s): G47.00 - INSOMNIA, UNSPECIFIED (5) Multiple sclerosis exacerbation Code(s): G35 - MULTIPLE SCLEROSIS Assessment/Plan Current Active Problems Brain lesion (Acute) Diabetes mellitus (Acute) Headache (Acute) Insomnia (Acute) Multiple sclerosis (Acute) Multiple sclerosis exacerbation (Acute) iddm hyperglycemia neuropathy diabetic associated steroid sensitivity Abnormal Lab Results 12/27/16 04:22 Anion Gap 7 L Random Glucose 168 H D AST 6 L Laboratory Results - last 24 hr 12/27/16 12/27/16 12/27/16 04:22 04:22 06:43 WBC 9.7 RBC 3.76 Hgb 12.4 D Hct 35.9 MCV 95.5 MCH 33.0 MCHC 34.5 RDW 12.0 Plt Count 249 MPV 10.2 Neutrophils % 62.0 Lymphocytes % 25.0 Monocytes % 7.3 Eosinophils % 4.2 D Basophils % 1.5 Sodium 138 Potassium 4.3 Chloride 102 Carbon Dioxide 29 Anion Gap 7 L BUN 15 Creatinine 0.8 Creat Clearance w eGFR > 60 POC Glucometer Random Glucose 168 H D Calcium 8.6 Total Bilirubin 0.3 D AST 6 L ALT 17 Alkaline Phosphatase 66 D C-Reactive Protein < 0.3 Total Protein 6.5 Albumin 3.8 Serum , Qual Negative 12/27/16 12/27/16 12/27/16 11:13 16:40 21:21 WBC RBC Hgb Hct MCV MCH MCHC RDW Plt Count MPV Neutrophils % Lymphocytes % Monocytes % Eosinophils % Basophils % Sodium Potassium Chloride Carbon Dioxide Anion Gap BUN Creatinine Creat Clearance w eGFR POC Glucometer 341 302 348 Random Glucose Calcium Total Bilirubin AST ALT Alkaline Phosphatase C-Reactive Protein Total Protein Albumin Serum , Qual plan: insulin pump therapy for basal bolus insulin doses adjustment basal rates with pump setting mn @1.2 units /hr 3am@1.4unit/hr 6am @1.5 unit/hr 12noon@1.6 unit /hr 6pm@1.3u/hr
[2016-12-27 23:14] LABS: URINE APPEARANCE CLEAR; URINE BILIRUBIN NEGATIVE (NEGATIVE); URINE BLOOD NEGATIVE (NEGATIVE); URINE COLOR STRAW; URINE GLUCOSE (UA) 3+ (NEGATIVE); URINE KETONE 1+ (NEGATIVE); URINE LEUK ESTERASE NEGATIVE (NEGATIVE); URINE NITRITE NEGATIVE (NEGATIVE); URINE PROTEIN NEGATIVE (NEGATIVE); URINE UROBILINOGEN NEGATIVE mg/dL (0.2-1.0)
[2016-12-28] MEDS: INSULIN SLIDING SCALE (NOVOLOG) 1 VIAL SQ SCH ×4 (06:03→22:09)
[2016-12-28] MEDS ORDERED: PT OWN MED DRAWER 7, Y5N ONE (09:22)
[2016-12-28] MEDS: BACLOFEN 10 MG TABLET (FP) PO SCH ×2 (09:24→22:08)
[2016-12-28] MEDS: methylPREDNISolone NA SUCC 1000 MG/8 ML VIAL IVPB SCH (09:25)
[2016-12-28] MEDS ORDERED: methylPREDNISolone NA SUCC 1000 MG/8 ML VIAL IVPB SCH (10:00)
--- NOTE | 2016-12-28 10:39 | CONSULT ---
Consult - text type - Consultation Consultation Note: Neurology History of Present Illness 31yo Female patient w/ PmHx: DM, Progressive MS, and Lupus, presents to ED c/o increased weakness, frequent falls, trouble swallowing, tremors, numbness and tingling in hands and feet for past few days. Patient states she spoke with her Neurologist from [place] and was instructed to come to ED for admission and IV steroids. She was admitted and started on IV steroids. She was also ordered for MRI brain and MRI T spine based on prior lesions. Spoke to [employer] and patient has exacerbations and has prior lesions to these locations. She has been having increased falls and difficulty with ambulation. Past History - Past Medical History Allergies/Adverse Reactions: Allergies Allergy/AdvReac Type Severity Reaction Status Date / Time Penicillins Allergy Mild Hives Verified 07/03/16 18:21 Home Medications: Ambulatory Orders Insulin Pump Syringe, 3 ml [Fifty50 [place]] 1 each MC ASDIR 12/25/12 Bupropion HCl [Wellbutrin Xl] 300 mg PO DAILY 10/06/15 Modafinil 200 mg PO DAILY 10/06/15 Norgestimate-Ethinyl Estradiol [Trinessa Tablet] 1 each PO DAILY 10/06/15 Baclofen 20 mg PO BID 07/03/16 Glatiramer Acetate [Copaxone] 40 mg SQ TUTHSA 07/03/16 Ondansetron [Zofran -] 4 mg PO TID #20 tablet 07/08/16 Pantoprazole Sodium [Protonix -] 40 mg PO DAILY #30 tablet.ec 07/08/16 Anemia: No Asthma: No Cancer: No Cardiac Disorders: No CVA: No COPD: No DVT: No Dementia: No Diabetes: Yes (IDDM on pump) Dialysis: No GI Disorders: No Disorders: No HTN: No Hypercholesterolemia: No Kidney Stones: No Liver Disease: No Psychiatric Problems: No Seizures: No Thyroid Disease: No Lung CA: No Other medical history: MS - Surgical History Orthopedic Surgery: Yes (R. Knee 2004) - Family Disease History Family Disease History: Diabetes: Brother, Other: Mother (ms) - Suicide/Smoking/Psychosocial Hx Smoking Status: Yes Smoking History: Former smoker Have you smoked in the past 12 months: No Number of Cigarettes Smoked Daily: 5 If you are a former smoker, when did you quit?: 2013 Information on smoking cessation initiated: No 'Breaking Loose' booklet given: 09/18/13 Hx Alcohol Use: No Drug/Substance Use Hx: Yes (Marijuana) Substance Use Type: Marijuana Hx Substance Use Treatment: No Review of Systems - Review of Systems Able to Perform ROS?: Yes Is the patient limited Persian proficient: No Constitutional: Yes: Weakness. No: Chills, Fever Musculoskeletal: Yes: Muscle Pain, Muscle Weakness. No: Back Pain Integumentary: No: Erythema, Rash Neurological: Yes: Numbness, Tingling, Tremors, Weakness, Unsteady Gait. No: Headache, Paresthesia, Seizure, Ataxia, Dizziness All Other Systems: Reviewed and Negative *Physical Exam Vital Signs Temperature 97.6 F 12/28/16 05:18 Pulse Rate 68 12/28/16 05:18 Respiratory Rate 20 12/28/16 05:18 Blood Pressure 106/68 12/28/16 05:18 O2 Sat by Pulse Oximetry (%) 98 12/27/16 21:00 - Physical Exam General Appearance: Yes: Nourished, Appropriately Dressed. No: Apparent Distress, Mild Distress, Moderate Distress, Severe Distress Neck: positive: Trachea midline, Supple. negative: Rigid, Stridor, Lymphadenopathy (R), Lymphadenopathy (L) Respiratory/Chest: positive: Lungs Clear, Normal Breath Sounds. negative: Chest Tender, Respiratory Distress, Accessory Muscle Use, Labored Respiration, Rapid RR, Rhonchi, Stridor, Wheezing Cardiovascular: positive: Regular Rhythm, Regular Rate Gastrointestinal/Abdominal: positive: Normal Bowel Sounds, Soft. negative: Distended, Guarding, Rebound, Tenderness Musculoskeletal: positive: Normal Inspection. negative: CVA Tenderness Extremity: positive: Normal Capillary Refill, Normal Inspection, Normal Range of Motion. negative: Pedal Edema, Swelling, Calf Tenderness, Erythema, Inflammation Integumentary: positive: Normal Color, Dry, Warm Neurologic: positive: precision lens centerer and edger II-XII NML intact, Fully Oriented, Alert, Normal Mood/ Affect, Normal Response, Motor Strength 5/5 CBCD WBC 9.7 K/mm3 (4.0-10.0) 12/27/16 04:22 RBC 3.76 M/mm3 (3.60-5.2) 12/27/16 04:22 Hgb 12.4 GM/dL (10.7-15.3) D 12/27/16 04:22 Hct 35.9 % (32.4-45.2) 12/27/16 04:22 MCV 95.5 fl (80-96) 12/27/16 04:22 MCHC 34.5 g/dl (32.0-36.0) 12/27/16 04:22 RDW 12.0 % (11.6-15.6) 12/27/16 04:22 Plt Count 249 K/MM3 (134-434) 12/27/16 04:22 MPV 10.2 fl (7.5-11.1) 12/27/16 04:22 CMP Sodium 138 mmol/L (136-145) 12/27/16 04:22 Potassium 4.3 mmol/L (3.5-5.1) 12/27/16 04:22 Chloride 102 mmol/L (98-107) 12/27/16 04:22 Carbon Dioxide 29 mmol/L (21-32) 12/27/16 04:22 Anion Gap 7 (8-16) L 12/27/16 04:22 BUN 15 mg/dL (7-18) 12/27/16 04:22 Creatinine 0.8 mg/dL (0.55-1.02) 12/27/16 04:22 Creat Clearance w eGFR > 60 (>60) 12/27/16 04:22 Calcium 8.6 mg/dL (8.5-10.1) 12/27/16 04:22 Total Bilirubin 0.3 mg/dL (0.2-1.0) D 12/27/16 04:22 AST 6 U/L (15-37) L 12/27/16 04:22 ALT 17 U/L (12-78) 12/27/16 04:22 Alkaline Phosphatase 66 U/L (45-117) D 12/27/16 04:22 Total Protein 6.5 g/dl (6.4-8.2) 12/27/16 04:22 Albumin 3.8 g/dl (3.4-5.0) 12/27/16 04:22 - RADIOLOGY MRI brain and T spine ordered Plan 31yo Female patient w/ PmHx: DM, Progressive MS, and Lupus, presents to ED c/o increased weakness, frequent falls, trouble swallowing, tremors, numbness and tingling in hands and feet for past few days. Patient states she spoke with her Neurologist from [place] and was instructed to come to ED for admission and IV steroids. She was admitted and started on IV steroids. Recommend Glucose monitoring, PPI to protect stomach She was also ordered for MRI brain and MRI T spine based on prior lesions. She has been having increased falls and difficulty with ambulation. Start physical therapy for gait and ambulation Endocrine following, Dr. Lux
--- NOTE | 2016-12-28 10:44 | PN ---
Progress Note, Physician Chief Complaint: MS exacerbation, weakness History of Present Illness: NAD, in bed - Current Medication List Current Medications: Active Medications Acetaminophen (Tylenol -) 650 mg PO Q6H PRN PRN Reason: FEVER OR PAIN Last Admin: 12/27/16 14:10 Dose: 650 mg Baclofen (Lioresal -) 20 mg PO BID [facility] Last Admin: 12/28/16 09:24 Dose: 20 mg Bupropion HCl (Wellbutrin Xl -) 300 mg PO DAILY [facility] Last Admin: 12/28/16 09:25 Dose: 300 mg Insulin Aspart (Novolog Vial Sliding Scale -) 1 vial SQ ACHS [facility] PRN Reason: Protocol Last Admin: 12/28/16 06:03 Dose: Not Given Methylprednisolone Sodium Succinate (Solu-Medrol -) 1,000 mg IVPB DAILY [facility] Stop: 12/31/16 10:00 Last Admin: 12/28/16 09:25 Dose: 1,000 mg - Objective Vital Signs: Vital Signs Temperature 97.6 F 12/28/16 05:18 Pulse Rate 68 12/28/16 05:18 Respiratory Rate 20 12/28/16 05:18 Blood Pressure 106/68 12/28/16 05:18 O2 Sat by Pulse Oximetry (%) 98 12/27/16 21:00 Constitutional: Yes: Well Nourished, No Distress, Calm Respiratory: Yes: Regular Gastrointestinal: Yes: Normal Bowel Sounds Edema: No Peripheral Pulses WNL: Yes Neurological: Yes: Alert, Oriented Psychiatric: Yes: Alert, Oriented Labs: CBC, BMP 12/28/16 06:40 Problem List - Problems (1) Diabetes mellitus Assessment/Plan: -has her own insulin pump, managed by Dr Lux -POC glucose -Diabetic diet Code(s): E11.9 - TYPE 2 DIABETES MELLITUS WITHOUT COMPLICATIONS Qualifiers: Diabetes mellitus type: type 1 Diabetes mellitus complication detail: with other neurological complication (2) Multiple sclerosis exacerbation Assessment/Plan: -Neurology consult for Dr Paul, she was seen by Dr Jensen earlier this year -1g methylprednisolone daily for MS exacerbation -repeat MRI brain, cervical and thoracic spine Code(s): G35 - MULTIPLE SCLEROSIS (3) Tremor Code(s): R25.1 - TREMOR, UNSPECIFIED (4) Brain lesion Assessment/Plan: -MRI with and without contrast -also cervical and thoracic spine MRI w/wo contrast Code(s): G93.9 - DISORDER OF BRAIN, UNSPECIFIED Assessment/Plan see problem list
[2016-12-29] MEDS: INSULIN SLIDING SCALE (NOVOLOG) 1 VIAL SQ SCH ×4 (06:21→21:33)
[2016-12-29] MEDS ORDERED: PT OWN MED DRAWER 7, Y5N ONE (09:52)
[2016-12-29] MEDS: methylPREDNISolone NA SUCC 1000 MG/8 ML VIAL IVPB SCH (10:07)
[2016-12-29] MEDS: PANTOPRAZOLE 40 MG TABLET (FP) PO SCH (10:08)
[2016-12-29] MEDS: BACLOFEN 10 MG TABLET (FP) PO SCH ×2 (10:08→21:33)
--- NOTE | 2016-12-29 10:29 | PN ---
Progress Note (short form) - Note Progress Note: Neurology History of Present Illness 31yo Female patient w/ PmHx: DM, Progressive MS, and Lupus, presents to ED c/o increased weakness, frequent falls, trouble swallowing, tremors, numbness and tingling in hands and feet for past few days. Patient states she spoke with her Neurologist from [place] and was instructed to come to ED for admission and IV steroids. She was admitted and started on IV steroids, 1 gram solumedrol daily. She was also ordered for MRI brain, completed awaiting report. Patient to obtain disc and bring with her to [facility] MS specialist. Patient to have 5 day course of steroids which would be completed Sunday morning. Active Medications Acetaminophen (Tylenol -) 650 mg PO Q6H PRN PRN Reason: FEVER OR PAIN Last Admin: 12/27/16 14:10 Dose: 650 mg Baclofen (Lioresal -) 20 mg PO BID [facility] Last Admin: 12/29/16 10:08 Dose: 20 mg Bupropion HCl (Wellbutrin Xl -) 300 mg PO DAILY [facility] Last Admin: 12/29/16 10:09 Dose: 300 mg Insulin Aspart (Novolog Vial Sliding Scale -) 1 vial SQ ACHS [facility] PRN Reason: Protocol Last Admin: 12/29/16 10:12 Dose: Not Given Methylprednisolone Sodium Succinate (Solu-Medrol -) 1,000 mg IVPB DAILY [facility] Stop: 12/31/16 10:00 Last Admin: 12/29/16 10:07 Dose: 1,000 mg Pantoprazole Sodium (Protonix -) 40 mg PO DAILY [facility] Last Admin: 12/29/16 10:08 Dose: 40 mg Vital Signs Temperature 97.6 F 12/28/16 05:18 Pulse Rate 68 12/28/16 05:18 Respiratory Rate 20 12/28/16 05:18 Blood Pressure 106/68 12/28/16 05:18 O2 Sat by Pulse Oximetry (%) 98 12/27/16 21:00 - Physical Exam General Appearance: Yes: Nourished, Appropriately Dressed. No: Apparent Distress, Mild Distress, Moderate Distress, Severe Distress Neck: positive: Trachea midline, Supple. negative: Rigid, Stridor, Lymphadenopathy (R), Lymphadenopathy (L) Respiratory/Chest: positive: Lungs Clear, Normal Breath Sounds. negative: Chest Tender, Respiratory Distress, Accessory Muscle Use, Labored Respiration, Rapid RR, Rhonchi, Stridor, Wheezing Cardiovascular: positive: Regular Rhythm, Regular Rate Gastrointestinal/Abdominal: positive: Normal Bowel Sounds, Soft. negative: Distended, Guarding, Rebound, Tenderness Musculoskeletal: positive: Normal Inspection. negative: CVA Tenderness Extremity: positive: Normal Capillary Refill, Normal Inspection, Normal Range of Motion. negative: Pedal Edema, Swelling, Calf Tenderness, Erythema, Inflammation Integumentary: positive: Normal Color, Dry, Warm Neurologic: positive: pressroom foreman II-XII NML intact, Fully Oriented, Alert, Normal Mood/ Affect, No slurred speech, strenght grossly intact, antlagic, narrow based gait , patchy sensory distribution CBCD WBC 9.7 K/mm3 (4.0-10.0) 12/27/16 04:22 RBC 3.76 M/mm3 (3.60-5.2) 12/27/16 04:22 Hgb 12.4 GM/dL (10.7-15.3) D 12/27/16 04:22 Hct 35.9 % (32.4-45.2) 12/27/16 04:22 MCV 95.5 fl (80-96) 12/27/16 04:22 MCHC 34.5 g/dl (32.0-36.0) 12/27/16 04:22 RDW 12.0 % (11.6-15.6) 12/27/16 04:22 Plt Count 249 K/MM3 (134-434) 12/27/16 04:22 MPV 10.2 fl (7.5-11.1) 12/27/16 04:22 CMP Sodium 138 mmol/L (136-145) 12/27/16 04:22 Potassium 4.3 mmol/L (3.5-5.1) 12/27/16 04:22 Chloride 102 mmol/L (98-107) 12/27/16 04:22 Carbon Dioxide 29 mmol/L (21-32) 12/27/16 04:22 Anion Gap 7 (8-16) L 12/27/16 04:22 BUN 15 mg/dL (7-18) 12/27/16 04:22 Creatinine 0.8 mg/dL (0.55-1.02) 12/27/16 04:22 Creat Clearance w eGFR > 60 (>60) 12/27/16 04:22 Calcium 8.6 mg/dL (8.5-10.1) 12/27/16 04:22 Total Bilirubin 0.3 mg/dL (0.2-1.0) D 12/27/16 04:22 AST 6 U/L (15-37) L 12/27/16 04:22 ALT 17 U/L (12-78) 12/27/16 04:22 Alkaline Phosphatase 66 U/L (45-117) D 12/27/16 04:22 Total Protein 6.5 g/dl (6.4-8.2) 12/27/16 04:22 Albumin 3.8 g/dl (3.4-5.0) 12/27/16 04:22 - RADIOLOGY MRI brain reviewed, extensive plaques, awaiting report Plan 31yo Female patient w/ PmHx: DM, Progressive MS, and Lupus, presents to ED c/o increased weakness, frequent falls, trouble swallowing, tremors, numbness and tingling in hands and feet for past few days. Patient states she spoke with her Neurologist from [place] and was instructed to come to ED for admission and IV steroids. She was admitted and started on IV Solumedrol 1gm daily, today would be third day 5 day course to be completed sunday Recommend Glucose monitoring, PPI to protect stomach MRI brain report pending She has been having increased falls and difficulty with ambulation. Precautions discussed Physical therapy for gait and ambulation Endocrine following, Dr. Lux
[2016-12-29] MEDS ORDERED: RAMIPRIL 2.5 MG CAPSULE (FP) PO SCH (15:00)
--- NOTE | 2016-12-29 17:43 | PN ---
Progress Note, Physician Chief Complaint: MS exacerbation, weakness History of Present Illness: NAD, in bed seen by Neurology and endocrinology MRI Brain,cervical and thoracic spine pending complains of pain - Current Medication List Current Medications: Active Medications Acetaminophen (Tylenol -) 650 mg PO Q6H PRN PRN Reason: FEVER OR PAIN Last Admin: 12/27/16 14:10 Dose: 650 mg Baclofen (Lioresal -) 20 mg PO BID [facility] Last Admin: 12/29/16 10:08 Dose: 20 mg Bupropion HCl (Wellbutrin Xl -) 300 mg PO DAILY [facility] Last Admin: 12/29/16 10:09 Dose: 300 mg Insulin Aspart (Novolog Vial Sliding Scale -) 1 vial SQ ACHS [facility] PRN Reason: Protocol Last Admin: 12/29/16 16:17 Dose: Not Given Methylprednisolone Sodium Succinate (Solu-Medrol -) 1,000 mg IVPB DAILY [facility] Stop: 12/31/16 10:00 Last Admin: 12/29/16 10:07 Dose: 1,000 mg Pantoprazole Sodium (Protonix -) 40 mg PO DAILY [facility] Last Admin: 12/29/16 10:08 Dose: 40 mg - Objective Vital Signs: Vital Signs Temperature 98.4 F 12/29/16 15:36 Pulse Rate 95 H 12/29/16 15:36 Respiratory Rate 20 12/29/16 15:36 Blood Pressure 122/77 12/29/16 15:36 O2 Sat by Pulse Oximetry (%) 98 12/29/16 08:00 Constitutional: Yes: Well Nourished, No Distress, Calm Cardiovascular: Yes: Regular Rate and Rhythm Respiratory: Yes: Regular Musculoskeletal: Yes: Muscle Weakness Edema: No Peripheral Pulses WNL: Yes Neurological: Yes: Alert, Oriented Psychiatric: Yes: Alert, Oriented Labs: CBC, BMP 12/28/16 06:40 Problem List - Problems (1) Diabetes mellitus Assessment/Plan: -has her own insulin pump, managed by Dr Lux -POC glucose -Diabetic diet Code(s): E11.9 - TYPE 2 DIABETES MELLITUS WITHOUT COMPLICATIONS Qualifiers: Diabetes mellitus type: type 1 Diabetes mellitus complication detail: with other neurological complication (2) Multiple sclerosis exacerbation Assessment/Plan: -Neurology on board -1g methylprednisolone daily for MS exacerbation -repeat MRI brain, cervical and thoracic spine -added gabapentin 100 mg po TID Code(s): G35 - MULTIPLE SCLEROSIS (3) Tremor Code(s): R25.1 - TREMOR, UNSPECIFIED (4) Brain lesion Assessment/Plan: -MRI with and without contrast -also cervical and thoracic spine MRI w/wo contrast Code(s): G93.9 - DISORDER OF BRAIN, UNSPECIFIED Assessment/Plan see problem list
[2016-12-29] MEDS: GABAPENTIN 100 MG CAPSULE (FP) PO SCH (21:33)
[2016-12-29] MEDS ORDERED: ALPRAZolam 0.25 MG TABLET PO PRN (21:51)
[2016-12-30] MEDS: INSULIN SLIDING SCALE (NOVOLOG) 1 VIAL SQ SCH ×4 (06:30→21:05)
[2016-12-30] MEDS: GABAPENTIN 100 MG CAPSULE (FP) PO SCH ×3 (06:31→21:04)
--- NOTE | 2016-12-30 09:17 | PN ---
Progress Note, Physician History of Present Illness: FEELS BETTER - Current Medication List Current Medications: Active Medications Acetaminophen (Tylenol -) 650 mg PO Q6H PRN PRN Reason: FEVER OR PAIN Last Admin: 12/27/16 14:10 Dose: 650 mg Alprazolam (Xanax -) 1 mg PO HS PRN Last Admin: 12/29/16 22:07 Dose: 1 mg Baclofen (Lioresal -) 20 mg PO BID [facility] Last Admin: 12/29/16 21:33 Dose: 20 mg Bupropion HCl (Wellbutrin Xl -) 300 mg PO DAILY [facility] Last Admin: 12/29/16 10:09 Dose: 300 mg Gabapentin (Neurontin -) 100 mg PO TID [facility] Last Admin: 12/30/16 06:31 Dose: 100 mg Insulin Aspart (Novolog Vial Sliding Scale -) 1 vial SQ ACHS [facility] PRN Reason: Protocol Last Admin: 12/30/16 06:30 Dose: Not Given Methylprednisolone Sodium Succinate (Solu-Medrol -) 1,000 mg IVPB DAILY [facility] Stop: 12/31/16 10:00 Last Admin: 12/29/16 10:07 Dose: 1,000 mg Pantoprazole Sodium (Protonix -) 40 mg PO DAILY [facility] Last Admin: 12/29/16 10:08 Dose: 40 mg - Objective Vital Signs: Vital Signs Temperature 97.6 F 12/30/16 06:00 Pulse Rate 64 12/30/16 06:00 Respiratory Rate 16 12/30/16 06:00 Blood Pressure 102/60 12/30/16 06:00 O2 Sat by Pulse Oximetry (%) 98 12/29/16 21:00 Cardiovascular: Yes: Regular Rate and Rhythm Respiratory: Yes: Regular, CTA Bilaterally Musculoskeletal: Yes: Muscle Weakness Neurological: Yes: Weakness Labs: CBC, BMP 12/28/16 06:40 Assessment/Plan - Problems (1) Diabetes mellitus Assessment/Plan: -has her own insulin pump, managed by Dr Lux -POC glucose -Diabetic diet Code(s): E11.9 - TYPE 2 DIABETES MELLITUS WITHOUT COMPLICATIONS Qualifiers: Diabetes mellitus type: type 1 Diabetes mellitus complication detail: with other neurological complication (2) Multiple sclerosis exacerbation Assessment/Plan: -Neurology on board -1g methylprednisolone daily for MS exacerbation -repeat MRI brain, cervical and thoracic spine -added gabapentin 100 mg po TID Code(s): G35 - MULTIPLE SCLEROSIS (3) Tremor Code(s): R25.1 - TREMOR, UNSPECIFIED (4) Brain lesion Assessment/Plan: -MRI with and without contrast -also cervical and thoracic spine MRI w/wo contrast Code(s): G93.9 - DISORDER OF BRAIN, UNSPECIFIED
[2016-12-30] MEDS: PANTOPRAZOLE 40 MG TABLET (FP) PO SCH (09:20)
[2016-12-30] MEDS: BACLOFEN 10 MG TABLET (FP) PO SCH ×2 (09:20→21:04)
[2016-12-30] MEDS: methylPREDNISolone NA SUCC 1000 MG/8 ML VIAL IVPB SCH (10:31)
--- NOTE | 2016-12-30 15:31 | PN ---
Progress Note (short form) - Note Progress Note: 31yo Female patient w/ PmHx: DM, Progressive MS, and Lupus, presents to ED c/o increased weakness, frequent falls, trouble swallowing, tremors, numbness and tingling in hands and feet for past few days. Patient states she spoke with her Neurologist from [place] and was instructed to come to ED for admission and IV steroids. She was admitted and started on IV steroids, 1 gram solumedrol daily. FU : HX of MS dx 2013, given copaxone, tecfidera and aubagio in past, OCREVIS IV 09/23, next due 03/25 MRI reviewed with progressive falls, tremor RUE , admnitted for exacerbation, due to see outpt neuro next week MR BRAIN Extensive bilateral cerebral, corpus callosum, elkin and mesencephalon demyelinating plaques again seen without evidence of abnormal intracranial enhancement to suggest active demyelination. Correlate clinically to determine follow-up. C and T spine : IMPRESSION: 1. Nonenhancing T2 hyperintense lesions in the cervical and thoracic cord as detailed above. Lesion in the posterior column of the cervical cord from C5 to C6 is increased in size and conspicuity, with no abnormal enhancement. No prior thoracic spine MRI available for comparison. These are compatible with demyelination in this patient with a history of multiple sclerosis. 2. Extensive T2 signal abnormalities in the brainstem and visualized periventricular white matter. Please correlate with 12/28/2016 MRI brain. Active Medications Acetaminophen (Tylenol -) 650 mg PO Q6H PRN PRN Reason: FEVER OR PAIN Last Admin: 12/27/16 14:10 Dose: 650 mg Baclofen (Lioresal -) 20 mg PO BID [facility] Last Admin: 12/29/16 10:08 Dose: 20 mg Bupropion HCl (Wellbutrin Xl -) 300 mg PO DAILY [facility] Last Admin: 12/29/16 10:09 Dose: 300 mg Insulin Aspart (Novolog Vial Sliding Scale -) 1 vial SQ ACHS [facility] PRN Reason: Protocol Last Admin: 12/29/16 10:12 Dose: Not Given Methylprednisolone Sodium Succinate (Solu-Medrol -) 1,000 mg IVPB DAILY [facility] Stop: 12/31/16 10:00 Last Admin: 12/29/16 10:07 Dose: 1,000 mg Pantoprazole Sodium (Protonix -) 40 mg PO DAILY [facility] Last Admin: 12/29/16 10:08 Dose: 40 mg Vital Signs Temperature 97.6 F 12/30/16 06:00 Pulse Rate 64 12/30/16 06:00 Respiratory Rate 16 12/30/16 09:00 Blood Pressure 102/60 12/30/16 06:00 O2 Sat by Pulse Oximetry (%) 98 12/30/16 09:00 - Physical Exam General Appearance: Yes: Nourished, Appropriately Dressed. No: Apparent Distress, Mild Distress, Moderate Distress, Severe Distress Neck: positive: Trachea midline, Supple. negative: Rigid, Stridor, Lymphadenopathy (R), Lymphadenopathy (L) Respiratory/Chest: positive: Lungs Clear, Normal Breath Sounds. negative: Chest Tender, Respiratory Distress, Accessory Muscle Use, Labored Respiration, Rapid RR, Rhonchi, Stridor, Wheezing Cardiovascular: positive: Regular Rhythm, Regular Rate Gastrointestinal/Abdominal: positive: Normal Bowel Sounds, Soft. negative: Distended, Guarding, Rebound, Tenderness Musculoskeletal: positive: Normal Inspection. negative: CVA Tenderness Extremity: positive: Normal Capillary Refill, Normal Inspection, Normal Range of Motion. negative: Pedal Edema, Swelling, Calf Tenderness, Erythema, Inflammation Integumentary: positive: Normal Color, Dry, Warm Neurologic: positive: EOMI, no facial, weakness TR 4/5 , ataxic BL , tremor R > L , no cogwheeling, distally legs 4+/5 TA, inc tone spastic and brisk reflexes CBCD WBC 9.7 K/mm3 (4.0-10.0) 12/27/16 04:22 RBC 3.76 M/mm3 (3.60-5.2) 12/27/16 04:22 Hgb 12.4 GM/dL (10.7-15.3) D 12/27/16 04:22 Hct 35.9 % (32.4-45.2) 12/27/16 04:22 MCV 95.5 fl (80-96) 12/27/16 04:22 MCHC 34.5 g/dl (32.0-36.0) 12/27/16 04:22 RDW 12.0 % (11.6-15.6) 12/27/16 04:22 Plt Count 249 K/MM3 (134-434) 12/27/16 04:22 MPV 10.2 fl (7.5-11.1) 12/27/16 04:22 CMP Sodium 138 mmol/L (136-145) 12/27/16 04:22 Potassium 4.3 mmol/L (3.5-5.1) 12/27/16 04:22 Chloride 102 mmol/L (98-107) 12/27/16 04:22 Carbon Dioxide 29 mmol/L (21-32) 12/27/16 04:22 Anion Gap 7 (8-16) L 12/27/16 04:22 BUN 15 mg/dL (7-18) 12/27/16 04:22 Creatinine 0.8 mg/dL (0.55-1.02) 12/27/16 04:22 Creat Clearance w eGFR > 60 (>60) 12/27/16 04:22 Random Glucose 379 mg/dL (74-106) H* D 12/28/16 06:40 Calcium 8.6 mg/dL (8.5-10.1) 12/27/16 04:22 Total Bilirubin 0.3 mg/dL (0.2-1.0) D 12/27/16 04:22 AST 6 U/L (15-37) L 12/27/16 04:22 ALT 17 U/L (12-78) 12/27/16 04:22 Alkaline Phosphatase 66 U/L (45-117) D 12/27/16 04:22 Total Protein 6.5 g/dl (6.4-8.2) 12/27/16 04:22 Albumin 3.8 g/dl (3.4-5.0) 12/27/16 04:22 - RADIOLOGY MRI brain reviewed, extensive plaques, awaiting report Plan 31yo Female patient w/ PmHx: DM, Progressive MS, and Lupus, presents to ED c/o increased weakness, frequent falls, trouble swallowing, tremors, numbness and tingling in hands and feet for past few days. Patient states she spoke with her Neurologist from [place] and was instructed to come to ED for admission and IV steroids. She was admitted and started on IV Solumedrol 1gm daily, add on low dose valium for tremor day 4/ , can likely be Dc home after last dose steroids tomorrow vs rehab assessment s/p OCREVIS , due to see outpt neuro next festus Dr Sullivan [phone]
[2016-12-30] MEDS: diazePAM 2 MG TABLET PO SCH (17:16)
--- NOTE | 2016-12-30 20:05 | PN ---
Progress Note, Physician Chief Complaint: very jittery and anxious from iv steroid,still unable to ambulate weak and unsteady gait History of Present Illness: dm iddm,ms ,sle spinal involvement noted on mri,indicative of extent of ms disease high dose steroid therapy in place - Current Medication List Current Medications: Active Medications Acetaminophen (Tylenol -) 650 mg PO Q6H PRN PRN Reason: FEVER OR PAIN Last Admin: 12/27/16 14:10 Dose: 650 mg Alprazolam (Xanax -) 1 mg PO HS PRN Last Admin: 12/29/16 22:07 Dose: 1 mg Baclofen (Lioresal -) 20 mg PO BID [facility] Last Admin: 12/30/16 09:20 Dose: 20 mg Bupropion HCl (Wellbutrin Xl -) 300 mg PO DAILY [facility] Last Admin: 12/30/16 09:20 Dose: 300 mg Diazepam (Valium -) 2 mg PO Q8H [facility] Stop: 12/31/16 16:46 Last Admin: 12/30/16 17:16 Dose: 2 mg Gabapentin (Neurontin -) 100 mg PO TID [facility] Last Admin: 12/30/16 14:04 Dose: 100 mg Insulin Aspart (Novolog Vial Sliding Scale -) 1 vial SQ ACHS [facility] PRN Reason: Protocol Last Admin: 12/30/16 16:54 Dose: Not Given Methylprednisolone Sodium Succinate (Solu-Medrol -) 1,000 mg IVPB DAILY [facility] Stop: 12/31/16 10:00 Last Admin: 12/30/16 10:31 Dose: 1,000 mg Pantoprazole Sodium (Protonix -) 40 mg PO DAILY [facility] Last Admin: 12/30/16 09:20 Dose: 40 mg - Objective Vital Signs: Vital Signs Temperature 98.2 F 12/30/16 18:00 Pulse Rate 94 H 12/30/16 18:00 Respiratory Rate 20 12/30/16 19:53 Blood Pressure 127/79 12/30/16 18:00 O2 Sat by Pulse Oximetry (%) 98 12/30/16 19:53 Constitutional: Yes: Anxious Eyes: Yes: EOM Intact HENT: Yes: Normocephalic Neck: Yes: Trachea Midline Cardiovascular: Yes: Regular Rate and Rhythm Respiratory: Yes: CTA Bilaterally Gastrointestinal: Yes: Normal Bowel Sounds ...Rectal Exam: Yes: Deferred Genitourinary: Yes: WNL Breast(s): Yes: WNL Musculoskeletal: Yes: Muscle Weakness Extremities: Yes: WNL Neurological: Yes: Alert, Tremors, Unsteady Gait, Weakness Labs: CBC, BMP 12/28/16 06:40 Problem List - Problems (1) Brain lesion Code(s): G93.9 - DISORDER OF BRAIN, UNSPECIFIED (2) Diabetes mellitus Code(s): E11.9 - TYPE 2 DIABETES MELLITUS WITHOUT COMPLICATIONS Qualifiers: Diabetes mellitus type: type 1 Diabetes mellitus complication detail: with other neurological complication (3) Headache Code(s): R51 - HEADACHE Qualifiers: Headache type: other vascular headache Qualified Code(s): G44.1 - Vascular headache, not elsewhere classified (4) Insomnia Code(s): G47.00 - INSOMNIA, UNSPECIFIED (5) Multiple sclerosis exacerbation Code(s): G35 - MULTIPLE SCLEROSIS Assessment/Plan Current Active Problems Brain lesion (Acute) Diabetes mellitus (Acute) Headache (Acute) Insomnia (Acute) Multiple sclerosis (Acute) Multiple sclerosis exacerbation (Acute) Laboratory Results - last 24 hr 12/29/16 12/30/16 12/30/16 21:30 06:29 11:21 POC Glucometer 381 268 185 12/30/16 16:53 POC Glucometer 252 plan: Current Medications Generic Name Dose Route Start Last Admin Trade Name Freq PRN Reason Stop Dose Admin Acetaminophen 650 mg 12/27/16 07:50 12/27/16 14:10 Tylenol - PO 650 mg Q6H PRN Administration FEVER OR PAIN Alprazolam 1 mg 12/29/16 21:51 12/29/16 22:07 Xanax - PO 1 mg HS PRN Administration Baclofen 20 mg 12/27/16 10:00 12/30/16 09:20 Lioresal - PO 20 mg BID [facility] Administration Bupropion HCl 300 mg 12/27/16 10:00 12/30/16 09:20 Wellbutrin Xl - PO 300 mg DAILY [facility] Administration Diazepam 2 mg 12/30/16 16:45 12/30/16 17:16 Valium - PO 12/31/16 16:46 2 mg Q8H [facility] Administration Gabapentin 100 mg 12/29/16 22:00 12/30/16 14:04 Neurontin - PO 100 mg TID [facility] Administration Insulin Aspart 1 vial 12/27/16 11:00 12/30/16 16:54 Novolog Vial Sliding Scale - SQ Not Given ACHS [facility] Protocol Methylprednisolone Sodium Succinate 1,000 mg 12/27/16 18:45 12/30/16 10:31 Solu-Medrol - IVPB 12/31/16 10:00 1,000 mg DAILY [facility] Administration Pantoprazole Sodium 40 mg 12/29/16 10:00 12/30/16 09:20 Protonix - PO 40 mg DAILY [facility] Administration insulin pump therapy dose adjustment via insulin pump basal bolus
[2016-12-31] MEDS: diazePAM 2 MG TABLET PO SCH ×3 (00:02→16:47)
[2016-12-31] MEDS: GABAPENTIN 100 MG CAPSULE (FP) PO SCH ×3 (06:35→21:40)
[2016-12-31] MEDS: INSULIN SLIDING SCALE (NOVOLOG) 1 VIAL SQ SCH ×4 (06:36→21:41)
[2016-12-31] MEDS ORDERED: PT OWN MED DRAWER 7, Y5N ONE (09:19)
[2016-12-31] MEDS: methylPREDNISolone NA SUCC 1000 MG/8 ML VIAL IVPB SCH (09:28)
[2016-12-31] MEDS: BACLOFEN 10 MG TABLET (FP) PO SCH ×2 (09:28→21:40)
[2016-12-31] MEDS: PANTOPRAZOLE 40 MG TABLET (FP) PO SCH (09:29)
--- NOTE | 2016-12-31 11:56 | PN ---
Progress Note, Physician History of Present Illness: FEELS BETTER - Current Medication List Current Medications: Active Medications Acetaminophen (Tylenol -) 650 mg PO Q6H PRN PRN Reason: FEVER OR PAIN Last Admin: 12/27/16 14:10 Dose: 650 mg Alprazolam (Xanax -) 1 mg PO HS PRN Last Admin: 12/29/16 22:07 Dose: 1 mg Baclofen (Lioresal -) 20 mg PO BID [facility] Last Admin: 12/31/16 09:28 Dose: 20 mg Bupropion HCl (Wellbutrin Xl -) 300 mg PO DAILY [facility] Last Admin: 12/31/16 09:28 Dose: 300 mg Diazepam (Valium -) 2 mg PO Q8H [facility] Stop: 12/31/16 16:46 Last Admin: 12/31/16 09:28 Dose: 2 mg Gabapentin (Neurontin -) 100 mg PO TID [facility] Last Admin: 12/31/16 06:35 Dose: 100 mg Insulin Aspart (Novolog Vial Sliding Scale -) 1 vial SQ ACHS [facility] PRN Reason: Protocol Last Admin: 12/31/16 11:14 Dose: Not Given Pantoprazole Sodium (Protonix -) 40 mg PO DAILY [facility] Last Admin: 12/31/16 09:29 Dose: 40 mg - Objective Vital Signs: Vital Signs Temperature 97.8 F 12/31/16 05:30 Pulse Rate 60 12/31/16 05:30 Respiratory Rate 16 12/31/16 05:30 Blood Pressure 104/57 12/31/16 05:30 O2 Sat by Pulse Oximetry (%) 98 12/30/16 19:53 Cardiovascular: Yes: Regular Rate and Rhythm Respiratory: Yes: Regular, CTA Bilaterally Gastrointestinal: Yes: Normal Bowel Sounds, Soft Neurological: Yes: Alert, Oriented, Tremors, Weakness Labs: CBC, BMP 12/28/16 06:40 Assessment/Plan - Problems (1) Diabetes mellitus Assessment/Plan: -has her own insulin pump, managed by Dr Lux -POC glucose -Diabetic diet Code(s): E11.9 - TYPE 2 DIABETES MELLITUS WITHOUT COMPLICATIONS Qualifiers: Diabetes mellitus type: type 1 Diabetes mellitus complication detail: with other neurological complication (2) Multiple sclerosis exacerbation Assessment/Plan: -Neurology on board -1g methylprednisolone daily for MS exacerbation -repeat MRI brain, cervical and thoracic spine -added gabapentin 100 mg po TID Code(s): G35 - MULTIPLE SCLEROSIS (3) Tremor [facility] PRN Code(s): R25.1 - TREMOR, UNSPECIFIED (4) Brain lesion Assessment/Plan: -MRI with and without contrast -also cervical and thoracic spine MRI w/wo contrast Code(s): G93.9 - DISORDER OF BRAIN, UNSPECIFIED
--- NOTE | 2016-12-31 17:17 | PN ---
Progress Note (short form) - Note Progress Note: 31yo Female patient w/ PmHx: DM, Progressive MS, and Lupus, presents to ED c/o increased weakness, frequent falls, trouble swallowing, tremors, numbness and tingling in hands and feet for past few days. Patient states she spoke with her Neurologist from [place] and was instructed to come to ED for admission and IV steroids. She was admitted and started on IV steroids, 1 gram solumedrol daily. FU : day 08/11 steroids feels tremor helped with valium, though only for short time HX of MS dx 2013, given copaxone, tecfidera and aubagio in past, OCREVIS IV 09/23 , next due 03/25 MRI reviewed with progressive falls, tremor RUE , admitted for exacerbation, due to see outpt neuro next week MR BRAIN Extensive bilateral cerebral, corpus callosum, elkin and mesencephalon demyelinating plaques again seen without evidence of abnormal intracranial enhancement to suggest active demyelination. Correlate clinically to determine follow-up. C and T spine : IMPRESSION: 1. Nonenhancing T2 hyperintense lesions in the cervical and thoracic cord as detailed above. Lesion in the posterior column of the cervical cord from C5 to C6 is increased in size and conspicuity, with no abnormal enhancement. No prior thoracic spine MRI available for comparison. These are compatible with demyelination in this patient with a history of multiple sclerosis. 2. Extensive T2 signal abnormalities in the brainstem and visualized periventricular white matter. Please correlate with 12/28/2016 MRI brain. Active Medications Acetaminophen (Tylenol -) 650 mg PO Q6H PRN PRN Reason: FEVER OR PAIN Last Admin: 12/27/16 14:10 Dose: 650 mg Baclofen (Lioresal -) 20 mg PO BID [facility] Last Admin: 12/29/16 10:08 Dose: 20 mg Bupropion HCl (Wellbutrin Xl -) 300 mg PO DAILY [facility] Last Admin: 12/29/16 10:09 Dose: 300 mg Insulin Aspart (Novolog Vial Sliding Scale -) 1 vial SQ ACHS [facility] PRN Reason: Protocol Last Admin: 12/29/16 10:12 Dose: Not Given Methylprednisolone Sodium Succinate (Solu-Medrol -) 1,000 mg IVPB DAILY [facility] Stop: 12/31/16 10:00 Last Admin: 12/29/16 10:07 Dose: 1,000 mg Pantoprazole Sodium (Protonix -) 40 mg PO DAILY [facility] Last Admin: 12/29/16 10:08 Dose: 40 mg Vital Signs Temperature 98.0 F 12/31/16 14:47 Pulse Rate 86 12/31/16 14:47 Respiratory Rate 20 12/31/16 14:47 Blood Pressure 131/81 12/31/16 14:47 O2 Sat by Pulse Oximetry (%) 98 12/30/16 19:53 - Physical Exam General Appearance: Yes: Nourished, Appropriately Dressed. No: Apparent Distress, Mild Distress, Moderate Distress, Severe Distress Neck: positive: Trachea midline, Supple. negative: Rigid, Stridor, Lymphadenopathy (R), Lymphadenopathy (L) Respiratory/Chest: positive: Lungs Clear, Normal Breath Sounds. negative: Chest Tender, Respiratory Distress, Accessory Muscle Use, Labored Respiration, Rapid RR, Rhonchi, Stridor, Wheezing Cardiovascular: positive: Regular Rhythm, Regular Rate Gastrointestinal/Abdominal: positive: Normal Bowel Sounds, Soft. negative: Distended, Guarding, Rebound, Tenderness Musculoskeletal: positive: Normal Inspection. negative: CVA Tenderness Extremity: positive: Normal Capillary Refill, Normal Inspection, Normal Range of Motion. negative: Pedal Edema, Swelling, Calf Tenderness, Erythema, Inflammation Integumentary: positive: Normal Color, Dry, Warm Neurologic: positive: EOMI, no facial, weakness TR 4/5 , ataxic BL , tremor R > L , no cogwheeling, distally legs 4+/5 TA, inc tone spastic and brisk reflexes CBCD WBC 9.7 K/mm3 (4.0-10.0) 12/27/16 04:22 RBC 3.76 M/mm3 (3.60-5.2) 12/27/16 04:22 Hgb 12.4 GM/dL (10.7-15.3) D 12/27/16 04:22 Hct 35.9 % (32.4-45.2) 12/27/16 04:22 MCV 95.5 fl (80-96) 12/27/16 04:22 MCHC 34.5 g/dl (32.0-36.0) 12/27/16 04:22 RDW 12.0 % (11.6-15.6) 12/27/16 04:22 Plt Count 249 K/MM3 (134-434) 12/27/16 04:22 MPV 10.2 fl (7.5-11.1) 12/27/16 04:22 CMP Sodium 138 mmol/L (136-145) 12/27/16 04:22 Potassium 4.3 mmol/L (3.5-5.1) 12/27/16 04:22 Chloride 102 mmol/L (98-107) 12/27/16 04:22 Carbon Dioxide 29 mmol/L (21-32) 12/27/16 04:22 Anion Gap 7 (8-16) L 12/27/16 04:22 BUN 15 mg/dL (7-18) 12/27/16 04:22 Creatinine 0.8 mg/dL (0.55-1.02) 12/27/16 04:22 Creat Clearance w eGFR > 60 (>60) 12/27/16 04:22 Random Glucose 379 mg/dL (74-106) H* D 12/28/16 06:40 Calcium 8.6 mg/dL (8.5-10.1) 12/27/16 04:22 Total Bilirubin 0.3 mg/dL (0.2-1.0) D 12/27/16 04:22 AST 6 U/L (15-37) L 12/27/16 04:22 ALT 17 U/L (12-78) 12/27/16 04:22 Alkaline Phosphatase 66 U/L (45-117) D 12/27/16 04:22 Total Protein 6.5 g/dl (6.4-8.2) 12/27/16 04:22 Albumin 3.8 g/dl (3.4-5.0) 12/27/16 04:22 - RADIOLOGY MRI brain reviewed, extensive plaques, awaiting report Plan 31yo Female patient w/ PmHx: DM, Progressive MS, and Lupus, presents to ED c/o increased weakness, frequent falls, trouble swallowing, tremors, numbness and tingling in hands and feet for past few days. Patient states she spoke with her Neurologist from [place] and was instructed to come to ED for admission and IV steroids. She was admitted and started on IV Solumedrol 1gm daily, completed 08/11 inc valium for tremor ( will Dc xanax) s/p OCREVIS , she should be eval for rehab due to see outpt neuro next festus Dr Sullivan [phone]
[2016-12-31] MEDS: diazePAM 5 MG TABLET PO SCH (18:20)
[2017-01-01] MEDS: diazePAM 5 MG TABLET PO SCH ×3 (01:31→18:21)
[2017-01-01] MEDS: GABAPENTIN 100 MG CAPSULE (FP) PO SCH ×3 (06:07→21:38)
[2017-01-01] MEDS: INSULIN SLIDING SCALE (NOVOLOG) 1 VIAL SQ SCH ×4 (06:08→21:40)
[2017-01-01] MEDS: PANTOPRAZOLE 40 MG TABLET (FP) PO SCH (09:05)
[2017-01-01] MEDS: BACLOFEN 10 MG TABLET (FP) PO SCH ×2 (09:06→21:37)
--- NOTE | 2017-01-01 10:33 | PN ---
Progress Note (short form) - Note Progress Note: Neurology History of Present Illness 31yo Female patient w/ PmHx: DM, Progressive MS, and Lupus, presents to ED c/o increased weakness, frequent falls, trouble swallowing, tremors, numbness and tingling in hands and feet for past few days. Patient states she spoke with her Neurologist from [place] and was instructed to come to ED for admission and IV steroids. She was admitted and started on IV steroids, 1 gram solumedrol daily. Completed 5 day course with subjective improvement. Gait still unsteady and may benefit from rehab placement. Spoke with [facility] this morning and may be able to have placement there. Active Medications Acetaminophen (Tylenol -) 650 mg PO Q6H PRN PRN Reason: FEVER OR PAIN Last Admin: 12/27/16 14:10 Dose: 650 mg Baclofen (Lioresal -) 20 mg PO BID [facility] Last Admin: 01/01/17 09:06 Dose: 20 mg Bupropion HCl (Wellbutrin Xl -) 300 mg PO DAILY [facility] Last Admin: 01/01/17 09:06 Dose: 300 mg Diazepam (Valium -) 5 mg PO Q8H [facility] Stop: 01/02/17 18:01 Last Admin: 01/01/17 09:05 Dose: 5 mg Gabapentin (Neurontin -) 100 mg PO TID [facility] Last Admin: 01/01/17 06:07 Dose: 100 mg Insulin Aspart (Novolog Vial Sliding Scale -) 1 vial SQ ACHS [facility] PRN Reason: Protocol Last Admin: 01/01/17 06:08 Dose: Not Given Pantoprazole Sodium (Protonix -) 40 mg PO DAILY [facility] Last Admin: 01/01/17 09:05 Dose: 40 mg Vital Signs Period Temp Pulse Resp BP Sys/Hoover Pulse Ox Last 24 Hr 97.2 F-98.0 F 49-95 16-20 107-131/61-81 - Physical Exam General Appearance: Yes: Nourished, Appropriately Dressed. No: Apparent Distress, Mild Distress, Moderate Distress, Severe Distress Neck: positive: Trachea midline, Supple. negative: Rigid, Stridor, Lymphadenopathy (R), Lymphadenopathy (L) Respiratory/Chest: positive: Lungs Clear, Normal Breath Sounds. negative: Chest Tender, Respiratory Distress, Accessory Muscle Use, Labored Respiration, Rapid RR, Rhonchi, Stridor, Wheezing Cardiovascular: positive: Regular Rhythm, Regular Rate Gastrointestinal/Abdominal: positive: Normal Bowel Sounds, Soft. negative: Distended, Guarding, Rebound, Tenderness Musculoskeletal: positive: Normal Inspection. negative: CVA Tenderness Extremity: positive: Normal Capillary Refill, Normal Inspection, Normal Range of Motion. 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 II-XII NML intact, Fully Oriented, Alert, Normal Mood/ Affect, No slurred speech, strenght grossly intact, antlagic, narrow based gait , patchy sensory distribution CBCD WBC 9.7 K/mm3 (4.0-10.0) 12/27/16 04:22 RBC 3.76 M/mm3 (3.60-5.2) 12/27/16 04:22 Hgb 12.4 GM/dL (10.7-15.3) D 12/27/16 04:22 Hct 35.9 % (32.4-45.2) 12/27/16 04:22 MCV 95.5 fl (80-96) 12/27/16 04:22 MCHC 34.5 g/dl (32.0-36.0) 12/27/16 04:22 RDW 12.0 % (11.6-15.6) 12/27/16 04:22 Plt Count 249 K/MM3 (134-434) 12/27/16 04:22 MPV 10.2 fl (7.5-11.1) 12/27/16 04:22 CMP Sodium 138 mmol/L (136-145) 12/27/16 04:22 Potassium 4.3 mmol/L (3.5-5.1) 12/27/16 04:22 Chloride 102 mmol/L (98-107) 12/27/16 04:22 Carbon Dioxide 29 mmol/L (21-32) 12/27/16 04:22 Anion Gap 7 (8-16) L 12/27/16 04:22 BUN 15 mg/dL (7-18) 12/27/16 04:22 Creatinine 0.8 mg/dL (0.55-1.02) 12/27/16 04:22 Creat Clearance w eGFR > 60 (>60) 12/27/16 04:22 Calcium 8.6 mg/dL (8.5-10.1) 12/27/16 04:22 Total Bilirubin 0.3 mg/dL (0.2-1.0) D 12/27/16 04:22 AST 6 U/L (15-37) L 12/27/16 04:22 ALT 17 U/L (12-78) 12/27/16 04:22 Alkaline Phosphatase 66 U/L (45-117) D 12/27/16 04:22 Total Protein 6.5 g/dl (6.4-8.2) 12/27/16 04:22 Albumin 3.8 g/dl (3.4-5.0) 12/27/16 04:22 - RADIOLOGY MRI brain, C, T spine completed Plan 31yo Female patient w/ PmHx: DM, Progressive MS, and Lupus, presents to ED c/o increased weakness, frequent falls, trouble swallowing, tremors, numbness and tingling in hands and feet for past few days. Patient states she spoke with her Neurologist from [place] and was instructed to come to ED for admission and IV steroids. She was admitted and started on IV Solumedrol 1gm daily, Completed 5 day course Recommend Glucose monitoring, PPI to protect stomach She has been having increased falls and difficulty with ambulation. Possibly rehab placement, spoke to [facility] today Endocrine following, Dr. Lux
--- NOTE | 2017-01-01 12:01 | DS ---
Physical Examination Vital Signs: Vital Signs Temperature 97.9 F 01/01/17 09:04 Pulse Rate 95 H 01/01/17 09:04 Respiratory Rate 18 01/01/17 09:04 Blood Pressure 130/71 01/01/17 09:04 O2 Sat by Pulse Oximetry (%) 98 12/30/16 19:53 Findings/Remarks: has burning sensation in feet says gabapentin helps Constitutional: Yes: Calm, Thin Cardiovascular: Yes: Regular Rate and Rhythm, S1, S2 Respiratory: Yes: CTA Bilaterally Gastrointestinal: Yes: Normal Bowel Sounds, Soft Edema: No Neurological: Yes: Alert, Oriented, Tremors (hand) Labs: CBC, BMP 12/31/16 21:45 Discharge Summary Reason For Visit: MULTIPLE SCLEROSIS EXACERBATION Current Active Problems Brain lesion (Acute) Diabetes mellitus (Acute) Headache (Acute) Insomnia (Acute) Multiple sclerosis (Acute) Multiple sclerosis exacerbation (Acute) Hospital Course: - Primary Care Physician [facility] - Admission Chief Complaint: Exacerbation of Multiple Sclerosis, weakness, Falls History of Present Illness: Ms. Thompson, a pleasant 31 year old femal came in to [facility] through ER for increased weakness, falls x 3, trouble swallowing, tremors, numbness and tingling in hands and feet for past 2 weeks. Patient has history of progressive Multiple Sclerosis, sees Dr Mary Germain at [place]. She is currently also being monitored for a brain and thoracic spine lesion and requires follow up MRI. She does have difficulty breathing at time or feels her chest is heavy. She denies chest pain, rashes, abdominal pain, nausea, vomiting, diarrhea or incontinence at this time. 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 ...LMP: 12/13/16 ...: No Endocrine: Yes: Diabetes Mellitus (on insulin pump) - Smoking History Smoking history: Former smoker Have you smoked in the past 12 months: No Aproximately how many cigarettes per day: 5 If you are a former smoker, when did you quit?: 2013 in hospital completed 5 day course of iv steroid 1gm solumedrol daily neuropathy on gabapentin hand tremors valium accept at [facility] awaiting authorization Condition: Guarded - Instructions Referrals: Neshiwat,Fam, MD [Primary Care Provider] - [facility]position: [facility] - Home Medications Comprehensive Discharge Medication List: Ambulatory Orders Insulin Pump Syringe, 3 ml [Fifty50 [place]] 1 each [facility] 12/25/12 Bupropion HCl [Wellbutrin Xl] 300 mg PO DAILY 10/06/15 Modafinil 200 mg PO DAILY 10/06/15 Norgestimate-Ethinyl Estradiol [Trinessa Tablet] 1 each PO DAILY 10/06/15 Baclofen 20 mg PO BID 07/03/16 Ocrelizumab [Ocrevus] 300 mg IV MONTHLY 12/27/16
[2017-01-02] MEDS: diazePAM 5 MG TABLET PO SCH ×2 (01:21→09:24)
[2017-01-02] MEDS: GABAPENTIN 100 MG CAPSULE (FP) PO SCH (06:02)
[2017-01-02] MEDS: INSULIN SLIDING SCALE (NOVOLOG) 1 VIAL SQ SCH ×2 (06:03→11:10)
[2017-01-02 07:58] VITALS: BP 99/64; PULSE 73; TEMP 98.4
[2017-01-02] MEDS: BACLOFEN 10 MG TABLET (FP) PO SCH (09:24)
[2017-01-02] MEDS: PANTOPRAZOLE 40 MG TABLET (FP) PO SCH (09:24)
--- NOTE | 2017-01-02 10:07 | PN ---
Progress Note, Physician Chief Complaint: patient waiting for authorization in bed hand tremors got her valium a few minutes ago - Current Medication List Current Medications: Active Medications Acetaminophen (Tylenol -) 650 mg PO Q6H PRN PRN Reason: FEVER OR PAIN Last Admin: 12/27/16 14:10 Dose: 650 mg Baclofen (Lioresal -) 20 mg PO BID [facility] Last Admin: 01/02/17 09:24 Dose: 20 mg Bupropion HCl (Wellbutrin Xl -) 300 mg PO DAILY [facility] Last Admin: 01/02/17 09:24 Dose: 300 mg Diazepam (Valium -) 5 mg PO Q8H [facility] Stop: 01/02/17 18:01 Last Admin: 01/02/17 09:24 Dose: 5 mg Gabapentin (Neurontin -) 100 mg PO TID [facility] Last Admin: 01/02/17 06:02 Dose: 100 mg Insulin Aspart (Novolog Vial Sliding Scale -) 1 vial SQ ACHS [facility] PRN Reason: Protocol Last Admin: 01/02/17 06:03 Dose: Not Given Pantoprazole Sodium (Protonix -) 40 mg PO DAILY [facility] Last Admin: 01/02/17 09:24 Dose: 40 mg - Objective Vital Signs: Vital Signs Temperature 98.4 F 01/02/17 06:00 Pulse Rate 73 01/02/17 06:00 Respiratory Rate 20 01/02/17 06:00 Blood Pressure 99/64 01/02/17 06:00 O2 Sat by Pulse Oximetry (%) 98 12/30/16 19:53 Constitutional: Yes: Calm Neck: Yes: Trachea Midline Cardiovascular: Yes: Regular Rate and Rhythm, S1, S2 Respiratory: Yes: CTA Bilaterally Gastrointestinal: Yes: Normal Bowel Sounds, Soft Edema: No Neurological: Yes: Alert, Oriented Labs: CBC, BMP 12/31/16 21:45 Problem List - Problems (1) Diabetes mellitus Assessment/Plan: insulin pump seen by endocrine Code(s): E11.9 - TYPE 2 DIABETES MELLITUS WITHOUT COMPLICATIONS Qualifiers: Diabetes mellitus type: type 1 Diabetes mellitus complication detail: with other neurological complication (2) Multiple sclerosis exacerbation Assessment/Plan: got 5 days of 1 gm solumerol completed the course MRI done show extensive demylinating disease consist with h/o of MS Code(s): G35 - MULTIPLE SCLEROSIS (3) Tremor Assessment/Plan: valium Code(s): R25.1 - TREMOR, UNSPECIFIED (4) Weakness Assessment/Plan: PT [facility] accept patient awaiting authorization Code(s): R53.1 - WEAKNESS
--- NOTE | 2017-01-02 10:25 | PN ---
Progress Note (short form) - Note Progress Note: Neurology History of Present Illness 31yo Female patient w/ PmHx: DM, Progressive MS, and Lupus, presents to ED c/o increased weakness, frequent falls, trouble swallowing, tremors, numbness and tingling in hands and feet for past few days. Patient states she spoke with her Neurologist from [place] and was instructed to come to ED for admission and IV steroids. She was admitted and started on IV steroids, 1 gram solumedrol daily. Completed 5 day course with subjective improvement. Gait still unsteady and may benefit from rehab placement. Spoke with [facility] yesterday and may be going there tomorrow. Social work coordinating. Patient in good spirits. Active Medications Acetaminophen (Tylenol -) 650 mg PO Q6H PRN PRN Reason: FEVER OR PAIN Last Admin: 12/27/16 14:10 Dose: 650 mg Baclofen (Lioresal -) 20 mg PO BID [facility] Last Admin: 01/02/17 09:24 Dose: 20 mg Bupropion HCl (Wellbutrin Xl -) 300 mg PO DAILY [facility] Last Admin: 01/02/17 09:24 Dose: 300 mg Diazepam (Valium -) 5 mg PO Q8H [facility] Stop: 01/02/17 18:01 Last Admin: 01/02/17 09:24 Dose: 5 mg Gabapentin (Neurontin -) 100 mg PO TID [facility] Last Admin: 01/02/17 06:02 Dose: 100 mg Insulin Aspart (Novolog Vial Sliding Scale -) 1 vial SQ ACHS [facility] PRN Reason: Protocol Last Admin: 01/02/17 06:03 Dose: Not Given Pantoprazole Sodium (Protonix -) 40 mg PO DAILY [facility] Last Admin: 01/02/17 09:24 Dose: 40 mg Vital Signs Temperature 98.4 F 01/02/17 06:00 Pulse Rate 73 01/02/17 06:00 Respiratory Rate 20 01/02/17 06:00 Blood Pressure 99/64 01/02/17 06:00 O2 Sat by Pulse Oximetry (%) 98 12/30/16 19:53 - Physical Exam General Appearance: Yes: Nourished, Appropriately Dressed. No: Apparent Distress, Mild Distress, Moderate Distress, Severe Distress Neck: positive: Trachea midline, Supple. negative: Rigid, Stridor, Lymphadenopathy (R), Lymphadenopathy (L) Respiratory/Chest: positive: Lungs Clear, Normal Breath Sounds. negative: Chest Tender, Respiratory Distress, Accessory Muscle Use, Labored Respiration, Rapid RR, Rhonchi, Stridor, Wheezing Cardiovascular: positive: Regular Rhythm, Regular Rate Gastrointestinal/Abdominal: positive: Normal Bowel Sounds, Soft. negative: Distended, Guarding, Rebound, Tenderness Musculoskeletal: positive: Normal Inspection. negative: CVA Tenderness Extremity: positive: Normal Capillary Refill, Normal Inspection, Normal Range of Motion. 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, Fully Oriented, Alert, Normal Mood/ Affect, No slurred speech, strenght grossly intact, antlagic, narrow based gait , patchy sensory distribution CBCD WBC 9.7 K/mm3 (4.0-10.0) 12/27/16 04:22 RBC 3.76 M/mm3 (3.60-5.2) 12/27/16 04:22 Hgb 12.4 GM/dL (10.7-15.3) D 12/27/16 04:22 Hct 35.9 % (32.4-45.2) 12/27/16 04:22 MCV 95.5 fl (80-96) 12/27/16 04:22 MCHC 34.5 g/dl (32.0-36.0) 12/27/16 04:22 RDW 12.0 % (11.6-15.6) 12/27/16 04:22 Plt Count 249 K/MM3 (134-434) 12/27/16 04:22 MPV 10.2 fl (7.5-11.1) 12/27/16 04:22 CMP Sodium 138 mmol/L (136-145) 12/27/16 04:22 Potassium 4.3 mmol/L (3.5-5.1) 12/27/16 04:22 Chloride 102 mmol/L (98-107) 12/27/16 04:22 Carbon Dioxide 29 mmol/L (21-32) 12/27/16 04:22 Anion Gap 7 (8-16) L 12/27/16 04:22 BUN 15 mg/dL (7-18) 12/27/16 04:22 Creatinine 0.8 mg/dL (0.55-1.02) 12/27/16 04:22 Creat Clearance w eGFR > 60 (>60) 12/27/16 04:22 Calcium 8.6 mg/dL (8.5-10.1) 12/27/16 04:22 Total Bilirubin 0.3 mg/dL (0.2-1.0) D 12/27/16 04:22 AST 6 U/L (15-37) L 12/27/16 04:22 ALT 17 U/L (12-78) 12/27/16 04:22 Alkaline Phosphatase 66 U/L (45-117) D 12/27/16 04:22 Total Protein 6.5 g/dl (6.4-8.2) 12/27/16 04:22 Albumin 3.8 g/dl (3.4-5.0) 12/27/16 04:22 - RADIOLOGY MRI brain, C, T spine completed Plan 31yo Female patient w/ PmHx: DM, Progressive MS, and Lupus, presents to ED c/o increased weakness, frequent falls, trouble swallowing, tremors, numbness and tingling in hands and feet for past few days. Patient states she spoke with her Neurologist from [place] and was instructed to come to ED for admission and IV steroids. She was admitted and started on IV Solumedrol 1gm daily, Completed 5 day course Recommend Glucose monitoring, PPI to protect stomach She has been having increased falls and difficulty with ambulation. Possibly rehab placement, spoke to [facility] vilchis yesterday Cleared for discharge Will follow up with [facility] neurologist. Endocrine following, Dr. Lux
== END 2017-01-02 11:50 | DRG 60 ==
LOC: JER 02:33 → JERBED 05:44 → UNDOADMIN 06:05 → J6S 08:26
PROVIDERS: ADMIT Family Medicine; ATTEND Family Medicine
DX: G35 Multiple sclerosis (principal); M32.8 Other forms of systemic lupus erythematosus; G93.9 Disorder of brain, unspecified; R25.1 Tremor, unspecified; E11.40 Type 2 diabetes mellitus with diabetic neuropathy, unspecified; E11.21 Type 2 diabetes mellitus with diabetic nephropathy; G47.09 Other insomnia; G44.89 Other headache syndrome; T38.0X5A Adverse effect of glucocorticoids and synthetic analogues, initial encounter; E11.65 Type 2 diabetes mellitus with hyperglycemia; G95.89 Other specified diseases of spinal cord; G44.1 Vascular headache, not elsewhere classified; R20.2 Paresthesia of skin; R53.1 Weakness; Z87.891 Personal history of nicotine dependence; Z79.4 Long term (current) use of insulin
CPT/HCPCS: 36415; 70553-TC; 71020-TC; 72156-TC; 72157-TC; 80053; 81003; 82947; 83036; 84703; 85025; 86140; 93005; 93010; 97116-GP; 97161-GP; 99285-25; A9576; J0475

== ENCOUNTER 2018-01-19 12:34 | Inpatient (IN) | payer OTHER ==
--- NOTE | 2018-01-19 13:47 | PDOC ---
History of Present Illness - General Chief Complaint: Weakness Stated Complaint: MS COMPLICATIONS Time Seen by Provider: 01/19/18 13:37 History Source: Patient Exam Limitations: No Limitations - History of Present Illness Initial Comments: CHIEF COMPLAINT: 32 y/o afebrile female with PMH IDDM, progressive relapsing remitting MS, Lupus c/o increased weakness, frequent falls, more numbness to hands, frequent william to arms for the past 2 weeks. HISTORY OF PRESENT ILLNESS: The patient has had exacerbations like this in the past and normally needs IV steroids x 5 days. She denies f/c, n/v/d, BROWNE, CP, SOB, abd pain, back pain, hematuria, dysuria. PMD is Dr. Lux Neurologist is not on staff Vital signs on arrival are notable for pulse of 95. REVIEW OF SYSTEMS: GENERAL/CONSTITUTIONAL: No fever/chills. + weakness. No weight change. HEAD, EYES, EARS, NOSE AND THROAT: No change in vision. No ear pain or discharge. No sore throat. CARDIOVASCULAR: No chest pain or shortness of breath. RESPIRATORY: No cough, wheezing, or hemoptysis. GASTROINTESTINAL: No nausea, vomiting, diarrhea. GENITOURINARY: No dysuria, frequency, or change in urination. MUSCULOSKELETAL: No joint or muscle swelling or pain. No neck or back pain. SKIN: +william to arms NEUROLOGIC: +frequent falls. +decreased sensation to hands and arms with multiple william to arms. No headache, vertigo, loss of consciousness, or loss of sensation. PHYSICAL EXAM: GENERAL: The patient is awake, alert, and fully oriented, in no acute distress. She is wheelchair bound. HEAD: Normal with no signs of trauma. ENT: Pupils equal, round and reactive to light, extraocular movements intact, sclera anicteric, conjunctiva clear. Neck supple. LUNGS: Clear to auscultation bilaterally. Normal excursion. No respiratory distress or use of accessory muscles. CV: RRR, S1/S2, no MRG. Cap refill < 2 sec. ABDOMEN: Soft, non-distended, non-tender even to deep palpation, no hepatomegaly or splenomegaly, no masses. EXTREMITIES: Normal range of motion, no edema. NEUROLOGICAL: Slurred speech (patient's baseline). CN II-XII grossly intact. Decreased sensation to hands and fingers b/l. PSYCH: Normal mood, normal affect. SKIN: Multiple 1st degree william to b/l forearms. Past History - Past Medical History Allergies/Adverse Reactions: Allergies Allergy/AdvReac Type Severity Reaction Status Date / Time Penicillins Allergy Mild Hives Verified 01/19/18 12:37 Home Medications: Ambulatory Orders Insulin Pump Syringe, 3 ml [Fifty50 [place]] 1 each [facility] ASDIR 12/25/12 Bupropion HCl [Wellbutrin Xl] 300 mg PO DAILY 10/06/15 Modafinil 200 mg PO DAILY 10/06/15 Norgestimate-Ethinyl Estradiol [Trinessa Tablet] 1 each PO DAILY 10/06/15 Baclofen 20 mg PO BID 07/03/16 Ocrelizumab [Ocrevus] 300 mg IV MONTHLY 12/27/16 Acetaminophen [Tylenol .Regular Strength -] 650 mg PO Q6H PRN #0 tablet Diazepam [Valium] 5 mg PO Q8H #20 tablet MDD 3 01/01/17 Gabapentin [Neurontin -] 100 mg PO TID #30 tab MDD 3 01/01/17 Pantoprazole Sodium [Protonix -] 40 mg PO DAILY #14 tab MDD 1 01/01/17 Anemia: No Asthma: No Cancer: No Cardiac Disorders: No CVA: No COPD: No DVT: No Dementia: No Diabetes: Yes Dialysis: No GI Disorders: No Disorders: No HTN: No Hypercholesterolemia: No Kidney Stones: No Liver Disease: No Psychiatric Problems: No Seizures: No Thyroid Disease: No Lung CA: No Other medical history: M.S, LUPUS - Surgical History Orthopedic Surgery: Yes (R. Knee 2004) - Family Disease History Family Disease History: Diabetes: Brother, Other: Mother (ms) - Suicide/Smoking/Psychosocial Hx Smoking Status: Yes Smoking History: Former smoker Have you smoked in the past 12 months: No Number of Cigarettes Smoked Daily: 5 If you are a former smoker, when did you quit?: 2012 Information on smoking cessation initiated: No 'Breaking Loose' booklet given: 09/18/13 Hx Alcohol Use: No Drug/Substance Use Hx: Yes (Marijuana) Substance Use Type: Marijuana Hx Substance Use Treatment: No *Physical Exam - Vital Signs Last Vital Signs Temp Pulse Resp BP Pulse Ox 99.1 F 95 H 18 139/84 100 01/19/18 12:38 01/19/18 12:38 01/19/18 12:38 01/19/18 12:38 01/19/18 12:38 Medical Decision Making - Medical Decision Making A/P: 32 y/o female with exacerbation of multiple sclerosis. Will start work up and start first dose of IV solu medrol. Will admit to Dr. Lux. Dr. Kingsley accepts admission for Dr. Lux. *DC/Admit/Observation/Transfer Diagnosis at time of Disposition: Multiple sclerosis exacerbation - Discharge Dispostion Condition at time of disposition: Fair Decision to Admit order: Yes - Referrals Referrals: Fam Lux MD [Primary Care Provider] - - Patient Instructions - Post Discharge Activity
[2018-01-19] MEDS ORDERED: methylPREDNISolone NA SUCC 1000 MG/8 ML VIAL IVPB ONE (13:51)
[2018-01-19] MEDS ORDERED: methylPREDNISolone NA SUCC 1000 MG/8 ML VIAL ONE (14:15)
--- NOTE | 2018-01-19 14:29 | PDOC ---
*Physical Exam - Vital Signs Last Vital Signs Temp Pulse Resp BP Pulse Ox 99.1 F 95 H 18 139/84 100 01/19/18 12:38 01/19/18 12:38 01/19/18 12:38 01/19/18 12:38 01/19/18 12:38 ED Treatment Course - Medications Given in the ED: ED Medications Discontinued Medications Generic Name Dose Route Start Last Admin Trade Name Freq PRN Reason Stop Dose Admin Methylprednisolone Sodium Succinate 1,000 mg 01/19/18 13:51 01/19/18 14:22 Solu-Medrol - IVPB 01/19/18 13:52 1,000 mg ONCE ONE Administration Medical Decision Making - Medical Decision Making 01/19/18 14:28 Pt seen by the Advanced Practice Provider under my direct supervision Ancillary studies reviewed I agree with plan as outlined by the Advanced Practice Provider CRYSTAL Glass *DC/Admit/Observation/Transfer Diagnosis at time of Disposition: Multiple sclerosis exacerbation - Discharge Dispostion Condition at time of disposition: Fair - Referrals Referrals: Fam Lux MD [Primary Care Provider] - - Patient Instructions - Post Discharge Activity
[2018-01-19 14:40] LABS: EOS % 1.7 % (0-4.5); HEMATOCRIT 42.3 % (32.4-45.2); HEMOGLOBIN 14.3 GM/dL (10.7-15.3); LYMPH % 19.2 % (8-40); MCH 32.2 pg (25.7-33.7); MCHC 33.9 g/dl (32.0-36.0); MEAN CELL VOLUME 94.9 fl (80-96); MONO % 4.9 % (3.8-10.2); NEUT % 73.2 % (42.8-82.8); PLATELET COUNT 291 K/MM3 (134-434); RBC 4.45 M/mm3 (3.60-5.2); RDW 12.1 % (11.6-15.6); WHITE BLOOD COUNT 11.4 K/mm3 (4.0-10.0)
[2018-01-19] MEDS ORDERED: KETOROLAC TROMETHAMINE 30 MG/1 ML VIAL IVPUSH ONE (15:03)
[2018-01-19] MEDS ORDERED: KETOROLAC TROMETHAMINE 30 MG/1 ML VIAL ONE (15:10)
[2018-01-19 15:11] LABS: ALBUMIN 4.3 g/dl (3.4-5.0); ALK PHOS 60 U/L (45-117); ANION GAP 7 MMOL/L (8-16); BILIRUBIN,TOTAL 0.4 mg/dL (0.2-1); BLOOD UREA NITROGEN 11 mg/dL (7-18); CHLORIDE 103 mmol/L (98-107); CO2 27 mmol/L (21-32); CREATININE 0.9 mg/dL (0.55-1.3); GLUCOSE,RANDOM 258 mg/dL (74-106); POTASSIUM 3.9 mmol/L (3.5-5.1); SGOT/AST 10 U/L (15-37); SGPT/ALT 17 U/L (13-61); SODIUM 137 mmol/L (136-145); TOT PROT 7.4 g/dl (6.4-8.2)
[2018-01-19] MEDS ORDERED: ACETAMINOPHEN 325 MG TABLET (FP) PO PRN (15:59)
[2018-01-19] MEDS ORDERED: OCRELIZUMAB 300 MG IV SCH (16:00)
[2018-01-19] MEDS: INSULIN SLIDING SCALE (NOVOLOG) 1 VIAL SQ SCH ×2 (17:32→21:22)
[2018-01-19] MEDS ORDERED: PT OWN MED DRAWER 7, Y5N ONE (21:09)
[2018-01-19] MEDS ORDERED: MODAFINIL 200 MG PO SCH (22:00)
[2018-01-19] MEDS: methylPREDNISolone NA SUCC 125 MG/2 ML VIAL IVPB SCH (22:47)
[2018-01-19] MEDS: PANTOPRAZOLE 40 MG TABLET (FP) PO SCH (22:47)
[2018-01-19] MEDS: HEPARIN NA (PORCINE) 5,000 UNITS/ML 1ML VIAL SQ SCH (22:47)
[2018-01-19] MEDS: BACLOFEN 10 MG TABLET (FP) PO SCH (22:47)
[2018-01-20] MEDS: methylPREDNISolone NA SUCC 125 MG/2 ML VIAL IVPB SCH ×4 (03:49→22:26)
[2018-01-20] MEDS: BACLOFEN 10 MG TABLET (FP) PO SCH ×3 (06:33→22:26)
[2018-01-20] MEDS: INSULIN SLIDING SCALE (NOVOLOG) 1 VIAL SQ SCH ×2 (06:38→12:03)
[2018-01-20 07:55] LABS: BASO % 0.1 % (0-2.0); HEMATOCRIT 40.6 % (32.4-45.2); HEMOGLOBIN 13.5 GM/dL (10.7-15.3); LYMPH % 3.9 % (8-40); MCH 31.7 pg (25.7-33.7); MCHC 33.1 g/dl (32.0-36.0); MEAN CELL VOLUME 95.6 fl (80-96); MEAN PLT VOLUME 9.3 fl (7.5-11.1); MONO % 0.7 % (3.8-10.2); NEUT % 95.3 % (42.8-82.8); PLATELET COUNT 275 K/MM3 (134-434); RBC 4.25 M/mm3 (3.60-5.2); RDW 12.2 % (11.6-15.6); WHITE BLOOD COUNT 18.7 K/mm3 (4.0-10.0)
[2018-01-20] MEDS: HEPARIN NA (PORCINE) 5,000 UNITS/ML 1ML VIAL SQ SCH ×2 (09:30→22:27)
[2018-01-20] MEDS: PANTOPRAZOLE 40 MG TABLET (FP) PO SCH ×2 (09:30→22:26)
[2018-01-20 09:34] LABS: ALBUMIN 3.9 g/dl (3.4-5.0); ALK PHOS 57 U/L (45-117); ANION GAP 11 MMOL/L (8-16); BILIRUBIN,TOTAL 0.7 mg/dL (0.2-1); BLOOD UREA NITROGEN 17 mg/dL (7-18); CHLORIDE 105 mmol/L (98-107); CO2 22 mmol/L (21-32); POTASSIUM 4.2 mmol/L (3.5-5.1); SGOT/AST 6 U/L (15-37); SGPT/ALT 17 U/L (13-61); SODIUM 138 mmol/L (136-145); TOT PROT 6.9 g/dl (6.4-8.2)
[2018-01-20 09:38] LABS: GLUCOSE,RANDOM 321 mg/dL (74-106)
[2018-01-20] MEDS ORDERED: POTASSIUM CHLORIDE 10 MEQ in SODIUM CHLORIDE 0.45% 1,000 ML IVPB SCH (10:30)
--- NOTE | 2018-01-20 10:33 | HP ---
Admitting History and Physical - Admission History of Present Illness: 32 y/o afebrile female with PMH IDDM, progressive relapsing remitting MS, Lupus c/o increased weakness, frequent falls, more numbness to hands, frequent william to arms for the past 2 weeks. HISTORY OF PRESENT ILLNESS: The patient has had exacerbations like this in the past and normally needs IV steroids x 5 days. She denies f/c, n/v/d, BROWNE, CP, SOB, abd pain, back pain, hematuria, dysuria. 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 Endocrine: Yes: Diabetes Mellitus (on insulin pump) - Smoking History Smoking history: Former smoker Have you smoked in the past 12 months: No Aproximately how many cigarettes per day: 5 If you are a former smoker, when did you quit?: 2012 - Alcohol/Substance Use Hx Alcohol Use: No Home Medications - Allergies Allergies/Adverse Reactions: Allergies Allergy/AdvReac Type Severity Reaction Status Date / Time Penicillins Allergy Mild Hives Verified 01/19/18 12:37 - Home Medications Home Medications: Ambulatory Orders Insulin Pump Syringe, 3 ml [Fifty50 [place]] 1 each [facility] ASDIR 12/25/12 Bupropion HCl [Wellbutrin Xl] 300 mg PO DAILY 10/06/15 Modafinil 200 mg PO BID 10/06/15 Baclofen 20 mg PO TID 07/03/16 Ocrelizumab [Ocrevus] 300 mg IV MONTHLY 12/27/16 Acetaminophen [Tylenol .Regular Strength -] 650 mg PO Q6H PRN #0 tablet Family Disease History - Family Disease History Family Disease History: Diabetes: Brother, Other: Mother (MS) Review of Systems - Review of Systems Constitutional: reports: Malaise, Weakness Cardiovascular: reports: Palpitations. denies: Chest Pain Gastrointestinal: denies: Abdominal Pain, Constipation, Diarrhea Genitourinary: reports: No Symptoms Musculoskeletal: reports: Muscle Weakness Neurological: reports: Tremors, Unsteady Gait, Weakness. denies: Change in LOC Physical Examination Vital Signs: Vital Signs Temperature 98.6 F 01/20/18 09:24 Pulse Rate 18 L 01/20/18 09:24 Respiratory Rate 98 H 01/20/18 09:24 Blood Pressure 111/63 01/20/18 09:24 O2 Sat by Pulse Oximetry (%) 98 01/19/18 22:00 Cardiovascular: Yes: Tachycardia, S1, S2 Respiratory: Yes: Regular, CTA Bilaterally Gastrointestinal: Yes: Normal Bowel Sounds, Soft Edema: No Neurological: Yes: Alert, Oriented, Tremors, Unsteady Gait, Weakness Labs: CBC, BMP 01/20/18 07:15 01/20/18 07:15 Problem List - Problems (1) Tachycardia Assessment/Plan: EKG TFT ECHO CARDIO IVF Code(s): R00.0 - TACHYCARDIA, UNSPECIFIED (2) Multiple sclerosis exacerbation Assessment/Plan: -IV STEROIDS -NEURO Code(s): G35 - MULTIPLE SCLEROSIS (3) Diabetes mellitus Assessment/Plan: -HAS INSULIN PUMP BGM AND ADJUST NEURO Code(s): E11.9 - TYPE 2 DIABETES MELLITUS WITHOUT COMPLICATIONS (4) Tremor Assessment/Plan: -NEURO Code(s): R25.1 - TREMOR, UNSPECIFIED
[2018-01-20 11:21] LABS: PLATELET ESTIMATE ADEQUATE
--- NOTE | 2018-01-20 14:15 | CON.CARD ---
Consult Consult Specialty:: Cardiology Referred by:: Dr. Kingsley Reason for Consultation:: tachycardia - History of Present Illness Chief Complaint: exacerbation of MS History of Present Illness: 32 year old woman with pmh DMII, MS, Lupus admitted for exacerbation of MS. Noted at times to be tachycardic. pt seen and examined today in [facility]. denies palpitations, chest pain. states she has trouble breathing at times. states she had an echo in Dr. Vargas office 09/2017 but she does not know the results.planned to see pulmonary as outpatient. 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/16 Endocrine: Yes: Diabetes Mellitus (on insulin pump) - Alcohol/Substance Use Hx Alcohol Use: No - Smoking History Smoking history: Former smoker Have you smoked in the past 12 months: No Aproximately how many cigarettes per day: 5 If you are a former smoker, when did you quit?: 2012 - Social History Usual Living Arrangement: With Significant Other Home Medications - Allergies Allergies/Adverse Reactions: Allergies Allergy/AdvReac Type Severity Reaction Status Date / Time Penicillins Allergy Mild Hives Verified 01/19/18 12:37 - Home Medications Home Medications: Ambulatory Orders Insulin Pump Syringe, 3 ml [Fifty50 [place]] 1 each [facility] ASDIR 12/25/12 Bupropion HCl [Wellbutrin Xl] 300 mg PO DAILY 10/06/15 Modafinil 200 mg PO BID 10/06/15 Baclofen 20 mg PO TID 07/03/16 Ocrelizumab [Ocrevus] 300 mg IV MONTHLY 12/27/16 Acetaminophen [Tylenol .Regular Strength -] 650 mg PO Q6H PRN #0 tablet Family Disease History - Family Disease History Family Disease History: Diabetes: Brother, Other: Mother (MS) Review of Systems - Review of Systems Constitutional: reports: Weakness Eyes: denies: No Symptoms, Blind Spots, Blurred Vision, Double Vision, Eye Pain , Floaters, Photophobia, Recent Change in Vision, Other HENT: denies: No Symptoms, Difficult Swallowing, Ear Discharge, Ear Pain, Epistaxis, Gingival Bleeding, Hearing Loss, Mouth Swelling, Nasal Congestion, Ocular Prosthesis, Throat Pain, Toothache, Ringing in Ears, Other Neck: denies: No Symptoms, Decreased ROM, Lumps, Pain on Movement, Stiffness, Swollen Glands, Tenderness, Other Cardiovascular: reports: Shortness of Breath. denies: No Symptoms, Chest Pain, Edema, Palpitations, Other Respiratory: reports: SOB. denies: No Symptoms, Cough, Exercise Intolerance, Hemoptysis, Orthopnea, PND, Snoring, SOB on Exertion, Wheezing, Other Gastrointestinal: denies: No Symptoms, Abdominal Pain, Bloating, Constipation, Diarrhea, Dysphagia, Indigestion, Melena, Nausea, Rectal Bleeding, Vomiting, Vomiting Blood, Other Musculoskeletal: reports: Muscle Weakness Neurological: reports: Pre-Existing Deficit, Tremors, Weakness - Risk Factors Known Risk Factors: Yes: Diabetes Mellitus Vital Signs: Vital Signs Temperature 98.6 F 01/20/18 09:24 Pulse Rate 98 H 01/20/18 09:24 Respiratory Rate 18 01/20/18 09:24 Blood Pressure 111/63 01/20/18 09:24 O2 Sat by Pulse Oximetry (%) 99 01/20/18 10:00 Constitutional: Yes: No Distress, Calm Eyes: Yes: Conjunctiva Clear, EOM Intact, PERRL HENT: Yes: Atraumatic, Normocephalic Neck: Yes: Supple, Trachea Midline Respiratory: Yes: Regular, CTA Bilaterally. No: Rales, Rhonchi, SOB, Wheezes Gastrointestinal: Yes: Normal Bowel Sounds JVD: No Carotid Bruit: No PMI: Non-Displaced Heart Sounds: Yes: S1, S2. No: Split S2, S3, S4, Clicks, Gallop, Rub, Bruit Murmur: No: Systolic Murmur, Diastolic Murmur Musculoskeletal: Yes: Muscle Weakness Edema: No Neurological: Yes: Alert, Oriented Psychiatric: Yes: Alert, Oriented - Other Data Labs, Other Data: CBC, BMP 01/20/18 07:15 01/20/18 07:15 Troponin, BNP 01/19/18 14:30 Troponin I < 0.02 Troponin, BNP 01/19/18 14:30 Troponin I < 0.02 ekg x 2-NSR normal ecgs Imaging - Results EKG: Report Reviewed, Image Reviewed Assessment/Plan Tachycardia-appears to be sinus tach ekgs are sinus rhythm most likely physiologic sinus tach secondary to underlying illness will order a 24 hour holter monitor to confirm tachycardic episodes are sinus tach. No other inpatient cardiac work up is needed at this time. Please call if Holter monitor shows rhythm other than sinus rhythm/sinus tach
--- NOTE | 2018-01-20 15:28 | CON.NEURO ---
Consult Consult Specialty:: Neurology (for Dr. Gutierrez) Referred by:: Dr. Kingsley Reason for Consultation:: MS exacerbation - History of Present Illness Chief Complaint: MS Exacerbation with increased weakness, frequent falls, more numbness to hands, frequent william to arms for the past 2 weeks. History of Present Illness: 32 year old woman with history of relapsing progressive MS, followed at [facility], first diagnosed in 2013 with left leg dragging, and currently receiving Ocrevus q 3 months. She has complaints ongoing cognitive deficits, speech difficulty, imbalance, left sided weakness, and sensory impairment in her hands. The impaired sensation and balance have worsened significantly over the last two weeks resulting in william and falls. She was treated, she says with stem cell therapy in an experimental protocol in [place] funded by a [employer] that she says helped and also took away the joint pain from her comorbid Lupus, though this seems to be coming back. 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 ...LMP: 12/13/16 Musculoskeletal: Yes: Other (lupus arthraligias) Rheumatology: Yes: Lupus Endocrine: Yes: Diabetes Mellitus (on insulin pump) - Alcohol/Substance Use Hx Alcohol Use: No - Smoking History Smoking history: Former smoker Have you smoked in the past 12 months: No Aproximately how many cigarettes per day: 5 If you are a former smoker, when did you quit?: 2013 - Social History Usual Living Arrangement: With Significant Other 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, 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[employer] Home Medications - Allergies Allergies/Adverse Reactions: Allergies Allergy/AdvReac Type Severity Reaction Status Date / Time Penicillins Allergy Mild Hives Verified 01/19/18 12:37 - Home Medications Home Medications: Ambulatory Orders Insulin Pump Syringe, 3 ml [Fifty50 [place]] 1 each MC ASDIR 12/25/12 Bupropion HCl [Wellbutrin Xl] 300 mg PO DAILY 10/06/15 Modafinil 200 mg PO BID 10/06/15 Baclofen 20 mg PO TID 07/03/16 Ocrelizumab [Ocrevus] 300 mg IV MONTHLY 12/27/16 Acetaminophen [Tylenol .Regular Strength -] 650 mg PO Q6H PRN #0 tablet Family Disease History - Family Disease History Family Disease History: Diabetes: Brother, Other: Mother (MS) Physical Exam-Neuro Vital Signs: Vital Signs Temperature 98.9 F 01/20/18 14:44 Pulse Rate 108 H 01/20/18 14:44 Respiratory Rate 20 01/20/18 14:44 Blood Pressure 147/64 01/20/18 14:44 O2 Sat by Pulse Oximetry (%) 99 01/20/18 10:00 Constitutional: Yes: Well Nourished, No Distress, Calm Psychiatric: Yes: Other (pathological laughter noted at times (pseudobulbar affect)) Labs: CBC, BMP 01/20/18 07:15 01/20/18 07:15 - Neuro Exam Level Of Consciousness: Yes: Alert, Oriented to Person, Oriented to Place, Oriented to Time Eyes: Yes: PERRLA, Other (EOMI, Nystagmus, oculomotor ataxia) Speech: Other (some scanning, pseudobulbar) Cranial Nerves II-XII Intact: Yes (occulomotor ataxia and nystagmus present) DTR's: 2+ Right Bicep, 2+ Right Tricep, 2+ Right Brachioradialis, 2+ Right Achilles, 3+ Left Bicep, 3+ Left Brachioradialis, 3+ Left Achilles Babinski: Present (left, right is flexor) Response to light touch: Normal Motor Strength: 4/5: Left Arm, Left Leg, 5/5: Right Arm, Right Leg Gait: Deferred Problem List - Problems (1) Lupus (systemic lupus erythematosus) Code(s): M32.9 - SYSTEMIC LUPUS ERYTHEMATOSUS, UNSPECIFIED (2) Multiple sclerosis exacerbation Code(s): G35 - MULTIPLE SCLEROSIS (3) Brain lesion Code(s): G93.9 - DISORDER OF BRAIN, UNSPECIFIED (4) Diabetes mellitus Code(s): E11.9 - TYPE 2 DIABETES MELLITUS WITHOUT COMPLICATIONS (5) Multiple sclerosis Code(s): G35 - MULTIPLE SCLEROSIS Assessment/Plan Solumedrol 250 q 6 hours. MRI brain with and without gadolinium. MRI C spine With and without gadolinium.
[2018-01-20] MEDS: POTASSIUM CHLORIDE 10 MEQ in SODIUM CHLORIDE 0.45% 1,000 ML IVPB SCH ×2 (15:53→22:43)
--- NOTE | 2018-01-20 17:28 | CONSULT ---
Consult Consult Specialty:: endocrine Referred by:: dr.iyad roland Reason for Consultation:: diabetes mellitus 1 - History of Present Illness Chief Complaint: high sugar/ ms History of Present Illness: 32 y/o afebrile female with PMH IDDM, progressive relapsing remitting MS, Lupus c/o increased weakness, frequent falls, more numbness to hands, frequent william to arms for the past 2 weeks. 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 ...LMP: 12/13/16 Musculoskeletal: Yes: Other (lupus arthraligias) Rheumatology: Yes: Lupus Endocrine: Yes: Diabetes Mellitus (on insulin pump) - Alcohol/Substance Use Hx Alcohol Use: No - Smoking History Smoking history: Former smoker Have you smoked in the past 12 months: No Aproximately how many cigarettes per day: 5 If you are a former smoker, when did you quit?: 2012 - Social History Usual Living Arrangement: With Significant Other 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, 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[employer] [facility] [facility] [employer] Home Medications - Allergies Allergies/Adverse Reactions: Allergies Allergy/AdvReac Type Severity Reaction Status Date / Time Penicillins Allergy Mild Hives Verified 01/19/18 12:37 - Home Medications Home Medications: Ambulatory Orders Insulin Pump Syringe, 3 ml [[employer]] 1 each [facility] ASDIR 12/25/12 Bupropion HCl [Wellbutrin Xl] 300 mg PO DAILY 10/06/15 Modafinil 200 mg PO BID 10/06/15 Baclofen 20 mg PO TID 07/03/16 Ocrelizumab [Ocrevus] 300 mg IV MONTHLY 12/27/16 Acetaminophen [Tylenol .Regular Strength -] 650 mg PO Q6H PRN #0 tablet Family Disease History - Family Disease History Family Disease History: Diabetes: Brother, Other: Mother (MS) Review of Systems - Review of Systems Constitutional: reports: Weakness Eyes: reports: Blurred Vision HENT: reports: Difficult Swallowing Neck: reports: Decreased ROM Cardiovascular: reports: Shortness of Breath Respiratory: reports: Exercise Intolerance, SOB on Exertion Gastrointestinal: reports: Bloating Genitourinary: reports: Frequency Breasts: reports: No Symptoms Reported Musculoskeletal: reports: Muscle Weakness Integumentary: reports: No Symptoms Neurological: reports: Numbness, Weakness Endocrine: reports: Unexplained Weight Loss Physical Exam Vital Signs: Vital Signs Temperature 98.9 F 01/20/18 14:44 Pulse Rate 108 H 01/20/18 14:44 Respiratory Rate 20 01/20/18 14:44 Blood Pressure 147/64 01/20/18 14:44 O2 Sat by Pulse Oximetry (%) 99 01/20/18 10:00 Constitutional: Yes: Calm Eyes: Yes: EOM Intact HENT: Yes: Normocephalic Neck: Yes: Decreased ROM Cardiovascular: Yes: Regular Rate and Rhythm Respiratory: Yes: CTA Bilaterally Gastrointestinal: Yes: Normal Bowel Sounds ...Rectal Exam: Yes: Deferred Renal/: Yes: WNL Breast(s): Yes: WNL Musculoskeletal: Yes: WNL Extremities: Yes: WNL Edema: No Neurological: Yes: Alert, Oriented, Ataxia, Loss of Sensation, Numbness, Pre- Existing Deficit, Unsteady Gait, Weakness Psychiatric: Yes: Alert Labs: CBC, BMP 01/20/18 07:15 01/20/18 07:15 Problem List - Problems (1) Lupus (systemic lupus erythematosus) Code(s): M32.9 - SYSTEMIC LUPUS ERYTHEMATOSUS, UNSPECIFIED (2) Multiple sclerosis exacerbation Code(s): G35 - MULTIPLE SCLEROSIS (3) Tachycardia Code(s): R00.0 - TACHYCARDIA, UNSPECIFIED (4) Ataxia Code(s): R27.0 - ATAXIA, UNSPECIFIED (5) Brain lesion Code(s): G93.9 - DISORDER OF BRAIN, UNSPECIFIED (6) Diabetes mellitus Code(s): E11.9 - TYPE 2 DIABETES MELLITUS WITHOUT COMPLICATIONS (7) Headache Code(s): R51 - HEADACHE Qualifiers: Headache type: other vascular headache Qualified Code(s): G44.1 - Vascular headache, not elsewhere classified Assessment/Plan Current Active Problems Lupus (systemic lupus erythematosus) (Acute) Multiple sclerosis exacerbation (Acute) Tachycardia (Acute) diabetes mellitus type 1 neuropathy Abnormal Lab Results 01/20/18 01/20/18 07:15 07:15 WBC 18.7 H Absolute Neuts (auto) 17.8 H Neutrophils % 95.3 H D Neutrophils % (Manual) 97.0 H Lymphocytes % 3.9 L D Monocytes % 0.7 L D Monocytes % (Manual) 2 L Random Glucose 321 H* AST 6 L TSH 0.33 L Laboratory Results - last 24 hr 01/19/18 01/20/18 01/20/18 21:20 06:35 07:15 WBC 18.7 H RBC 4.25 Hgb 13.5 Hct 40.6 MCV 95.6 MCH 31.7 MCHC 33.1 RDW 12.2 Plt Count 275 MPV 9.3 Absolute Neuts (auto) 17.8 H Total Counted 100 Neutrophils % 95.3 H D Neutrophils % (Manual) 97.0 H Band Neutrophils % 1.0 Lymphocytes % 3.9 L D Monocytes % 0.7 L D Monocytes % (Manual) 2 L Eosinophils % 0.0 D Basophils % 0.1 Nucleated RBC % 0 Platelet Estimate Adequate Sodium Potassium Chloride Carbon Dioxide Anion Gap BUN Creatinine Creat Clearance w eGFR POC Glucometer 290 331 Random Glucose Calcium Magnesium Total Bilirubin AST ALT Alkaline Phosphatase Total Protein Albumin TSH Free T4 01/20/18 01/20/18 01/20/18 07:15 07:30 12:01 WBC RBC Hgb Hct MCV MCH MCHC RDW Plt Count MPV Absolute Neuts (auto) Total Counted Neutrophils % Neutrophils % (Manual) Band Neutrophils % Lymphocytes % Monocytes % Monocytes % (Manual) Eosinophils % Basophils % Nucleated RBC % Platelet Estimate Sodium 138 Potassium 4.2 Chloride 105 Carbon Dioxide 22 Anion Gap 11 BUN 17 Creatinine 1.0 Creat Clearance w eGFR > 60 POC Glucometer 360 Random Glucose 321 H* Calcium 9.0 Magnesium 2.0 Total Bilirubin 0.7 AST 6 L ALT 17 Alkaline Phosphatase 57 Total Protein 6.9 Albumin 3.9 TSH 0.33 L Cancelled Free T4 0.90 Cancelled 01/20/18 17:26 WBC RBC Hgb Hct MCV MCH MCHC RDW Plt Count MPV Absolute Neuts (auto) Total Counted Neutrophils % Neutrophils % (Manual) Band Neutrophils % Lymphocytes % Monocytes % Monocytes % (Manual) Eosinophils % Basophils % Nucleated RBC % Platelet Estimate Sodium Potassium Chloride Carbon Dioxide Anion Gap BUN Creatinine Creat Clearance w eGFR POC Glucometer 335 Random Glucose Calcium Magnesium Total Bilirubin AST ALT Alkaline Phosphatase Total Protein Albumin TSH Free T4 plan: insulin pump use medtronic pump bgm qid novolog via pump basal bolus rates set Current Medications Generic Name Dose Route Start Last Admin Trade Name Freq PRN Reason Stop Dose Admin Acetaminophen 650 mg 01/19/18 15:59 Tylenol - PO Q6H PRN FEVER Baclofen 20 mg 10/13/18 22:00 01/20/18 14:00 Lioresal - PO 20 mg TID LUIS Administration Bupropion HCl 300 mg 01/20/18 10:00 01/20/18 09:31 Wellbutrin Xl - PO 300 mg DAILY LUIS Administration Heparin Sodium (Porcine) 5,000 unit 01/19/18 22:00 01/20/18 09:30 Heparin - SQ 5,000 unit BID LUIS Administration Potassium Chloride 10 meq/ 1,005 mls @ 125 mls/hr 01/20/18 13:07 01/20/18 15: 53 Sodium Chloride IVPB 125 mls/hr Q8H LUIS Administration Methylprednisolone Sodium Succinate 250 mg 01/19/18 21:00 01/20/18 14:05 Solu-Medrol - IVPB 250 mg Q6H-IV LUIS Administration Non-Formulary Medication 300 mg 01/19/18 16:00 Ocrelizumab [Ocrevus] IV MONTHLY LUIS Pantoprazole Sodium 40 mg 01/19/18 22:00 01/20/18 09:30 Protonix - PO 40 mg BID LUIS Administration Zolpidem Tartrate 5 mg 01/20/18 10:35 Ambien - PO HS PRN INSOMNIA
[2018-01-20] MEDS: oxyCODONE HCL 5 MG TABLET PO PRN (18:33)
[2018-01-20] MEDS ORDERED: PT OWN MED DRAWER 7, Y5N ONE (22:46)
[2018-01-20] MEDS ORDERED: INSULIN (NOVOLOG) ASPART 100 UNITS/ML 10ML VIAL ONE (22:47)
[2018-01-21] MEDS: POTASSIUM CHLORIDE 10 MEQ in SODIUM CHLORIDE 0.45% 1,000 ML IVPB SCH ×4 (01:05→21:25)
[2018-01-21] MEDS: methylPREDNISolone NA SUCC 125 MG/2 ML VIAL IVPB SCH ×4 (02:05→21:22)
[2018-01-21] MEDS: BACLOFEN 10 MG TABLET (FP) PO SCH ×3 (05:51→21:22)
[2018-01-21] MEDS: oxyCODONE HCL 5 MG TABLET PO PRN (07:56)
[2018-01-21] MEDS: HEPARIN NA (PORCINE) 5,000 UNITS/ML 1ML VIAL SQ SCH ×2 (09:18→21:23)
[2018-01-21] MEDS: PANTOPRAZOLE 40 MG TABLET (FP) PO SCH ×2 (09:19→21:22)
--- NOTE | 2018-01-21 10:30 | EKG ---
Test Reason : Blood Pressure : / mmHG Vent. Rate : 087 BPM Atrial Rate : 087 BPM P-R Int : 138 ms QRS Dur : 082 ms QT Int : 374 ms P-R-T Axes : 072 066 077 degrees QTc Int : 450 ms NORMAL SINUS RHYTHM NORMAL ECG WHEN COMPARED WITH ECG OF 19-JAN-2018 17:47, NO SIGNIFICANT CHANGE WAS FOUND Confirmed by AYAD NIEVES MD ([id number]) on 01/21/2018 10:30:12 AM Referred By: Jaiden ELAM Confirmed By:AYAD NIEVES MD
--- NOTE | 2018-01-21 11:11 | CONS ---
DATE OF CONSULTATION: 01/21/2018 HISTORY OF PRESENT ILLNESS: The patient is a 32-year-old woman with past medical history of multiple sclerosis with left more than right foot drop who was admitted on January 19, 2018 with increased weakness, falling, numbness in the left more than the right hand, and some shortness of breath. The patient on admission underwent chest x-ray, which showed no acute chest pathology. She underwent blood work, which showed slight elevation of WBCs of 11.4, hemoglobin 14.3, and platelet count 291 on admission. Repeat yesterday showed an increase in WBCs to 18.7 as she was started on steroids. Her chemistry on admission showed a normal BUN 11, creatinine 0.9. Otherwise, fairly unremarkable chemistry except for an elevated random glucose. Repeat blood work on January 20 did show a low TSH of 0.33 but normal free T4. Her Free T3 is pending. The patient again was placed on IV steroids, evaluated by Neurology, diagnosed with MS exacerbation. The patient was also seen by physical therapy on January 20. Able to ambulate about 15 feet with a rolling walker minimum assist of 1. She required minimum assist for transfers. She had a similar exacerbation a year ago and did go to [facility]. She may have a left AFO at home but has not been using it. She has difficulty donning and doffing the left AFO. PAST MEDICAL HISTORY: As above. Multiple sclerosis. Also diabetes on insulin pump. She has left more than right foot drop, which is chronic and tremor, which affects her right upper extremity, which she states is chronic and does not respond to steroids. PAST SURGICAL HISTORY: As above. SOCIAL HISTORY: The patient states she lives with her parents about 3 hours away in a private house. There are a few steps to enter. Premorbidly she was ambulatory but limited with a walker. Former tobacco user. Quit in 2012. REVIEW OF SYSTEMS: The patient has no headache, no lightheadedness or dizziness. No blurry vision, double vision, change in vision. No nausea, vomiting. She does have difficulty swallowing liquids at times and has seen a speech therapist in the past. The patient has some discomfort over the left collar bone, which she states is frequent with the IV steroids. No current chest pain. No current shortness of breath but she was short of breath when she was admitted. No abdominal discomfort. No bowel or bladder complaints. Again, chronic numbness and tingling in the left upper and left lower extremity, which worsened. Also diffuse weakness left side, particularly the left foot more than the right but she started to notice some right foot drop. Tremor involving the right upper extremity. No fever or chills. No weight loss or weight gain. No skin rash or breakdown. PHYSICAL EXAMINATION: General: The patient is a friendly young woman who is seen lying in bed. She is awake, alert, and cooperative and in no acute distress. She does have a tremor involving her right upper extremity, which is notable. HEENT: She is normocephalic and atraumatic. Her extraocular muscles appear intact. She has no obvious facial weakness. No oral ulcers. Speech is fluent. Neck: Supple. Extremities: Without any pitting edema or calf tenderness. Neuromuscular: She is awake, alert, and oriented x3. Cranial nerves 2-12 are grossly intact. She seems to have good insight into her medical conditions. Again, fluent speech. Able to communicate well. She has tremor involving the right upper extremity but fairly good strength in the upper extremities, at least 4/5 in the left upper extremity and 4+/5 in the right upper extremity, with good isolated movement. She does have weakness in the left lower extremity, a little bit less than antigravity strength 3-/5 in the hip flexors, 4/5 in knee extensors, 4/5 in dorsal flexors. Right side is a little stronger at 3+/5 to 4-/5 proximally and 4+/5 distally. Normal sensation to light touch. Brisk reflexes left more than right. Toes are upgoing bilaterally. Unable to stand her or ambulate her at this time. She has some tenderness over the left clavicle. OVERALL IMPRESSION: 1. Deficits in mobility, activities of daily living multifactorial but mainly due to multiple sclerosis exacerbation. 2. Left partial foot drop, starting to develop right-sided symptoms. 3. Difficulty swallowing liquids at times. 4. Left clavicular pain, which she states common with steroids. 5. Diabetes. 6. Hyperglycemia due to diabetes and steroids. 7. Increased risk for deep vein thrombosis due to immobility. 8. Increased risk for skin breakdown, decubitus ulcerations due to immobility. 9. Increased risk for constipation. PLAN/SUGGESTION: 1. Continue physical therapy at the bedside. 2. Recommend Speech Therapy evaluation with K[facility]ines for swallowing. 3. Out of bed to chair with assist. 4. Agree with subcutaneous heparin. 5. Avoid sacral and heel pressure. Turn q.2 hours to avoid decubitus ulceration. 6. Bowel regimen. Monitor for constipation. 7. Monitor blood sugars. 8. Follow up blood work with low TSH, assess free T3. 9. Case management evaluation for possible acute inpatient rehabilitation. She has been to [facility] in the past and would be interested in returning but would need approval. MONIE CLEARY M.D. [id number]
--- NOTE | 2018-01-21 11:36 | PN ---
Progress Note, Physician Chief Complaint: patient seen and examined says her weakness is slightly better since started steroids, today is 3/5 dose of steroids awaiting MRI uses walker - Current Medication List Current Medications: Active Medications Acetaminophen (Tylenol -) 650 mg PO Q6H PRN PRN Reason: FEVER Baclofen (Lioresal -) 20 mg PO TID [facility] Last Admin: 01/21/18 05:51 Dose: 20 mg Bupropion HCl (Wellbutrin Xl -) 300 mg PO DAILY [facility] Last Admin: 01/21/18 09:19 Dose: 300 mg Heparin Sodium (Porcine) (Heparin -) 5,000 unit SQ BID [facility] Last Admin: 01/21/18 09:18 Dose: 5,000 unit Potassium Chloride 10 meq/ (Sodium Chloride) 1,005 mls @ 125 mls/hr IVPB Q8H [facility] Last Admin: 01/21/18 05:51 Dose: Not Given Methylprednisolone Sodium Succinate (Solu-Medrol -) 250 mg IVPB Q6H-IV [facility] Last Admin: 01/21/18 08:03 Dose: 250 mg Non-Formulary Medication (Ocrelizumab [Ocrevus]) 300 mg IV MONTHLY [facility] Oxycodone HCl (Roxicodone -) 5 mg PO Q6H PRN PRN Reason: PAIN LEVEL 4 - 6 Last Admin: 01/21/18 07:56 Dose: 5 mg Pantoprazole Sodium (Protonix -) 40 mg PO BID [facility] Last Admin: 01/21/18 09:19 Dose: 40 mg Zolpidem Tartrate (Ambien -) 5 mg PO HS PRN PRN Reason: INSOMNIA - Objective Vital Signs: Vital Signs Temperature 98 F 01/21/18 09:21 Pulse Rate 100 H 01/21/18 09:21 Respiratory Rate 20 01/21/18 09:21 Blood Pressure 146/77 01/21/18 09:21 O2 Sat by Pulse Oximetry (%) 99 01/20/18 21:00 Constitutional: Yes: Calm Cardiovascular: Yes: Regular Rate and Rhythm, S1, S2 Respiratory: Yes: CTA Bilaterally Gastrointestinal: Yes: Normal Bowel Sounds, Soft Edema: No Labs: CBC, BMP 01/20/18 07:15 01/20/18 07:15 Problem List - Problems (1) Multiple sclerosis exacerbation Assessment/Plan: iv steroids solumedrol 25mg q6h for 5 days [facility] after steroidsdone Code(s): G35 - MULTIPLE SCLEROSIS (2) Tachycardia Code(s): R00.0 - TACHYCARDIA, UNSPECIFIED (3) Diabetes mellitus Assessment/Plan: insulin pump appreciate endocrine consult Code(s): E11.9 - TYPE 2 DIABETES MELLITUS WITHOUT COMPLICATIONS (4) Insomnia Assessment/Plan: ambien Code(s): G47.00 - INSOMNIA, UNSPECIFIED (5) Tachycardia Assessment/Plan: cardiology on board holter monitor to evaluate tachycardia Code(s): R00.0 - TACHYCARDIA, UNSPECIFIED
[2018-01-21 13:01] LABS: BASO % 0.1 % (0-2.0); EOS % 0.1 % (0-4.5); HEMATOCRIT 40.8 % (32.4-45.2); HEMOGLOBIN 13.4 GM/dL (10.7-15.3); LYMPH % 2.7 % (8-40); MCH 31.6 pg (25.7-33.7); MCHC 32.9 g/dl (32.0-36.0); MEAN CELL VOLUME 95.9 fl (80-96); MEAN PLT VOLUME 9.9 fl (7.5-11.1); MONO % 1.3 % (3.8-10.2); NEUT % 95.8 % (42.8-82.8); PLATELET COUNT 303 K/MM3 (134-434); RBC 4.26 M/mm3 (3.60-5.2); RDW 12.4 % (11.6-15.6); WHITE BLOOD COUNT 26.7 K/mm3 (4.0-10.0)
[2018-01-21] MEDS ORDERED: PT OWN MED DRAWER 7, Y5N ONE (13:30)
[2018-01-21 13:40] LABS: ACANTHOCYTES 0; ANISOCYTOSIS 0; HELMET CELLS 0; HOWELL-JOLLY BODIES 0; MACROCYTOSIS 0; OVALOCYTE 0; PLATELET ESTIMATE NORMAL; ROULEAU 0; SICKELED CELLS 0; TARGET CELLS 0; TEAR DROP CELLS 0; TOXIC GRANULATION 0
[2018-01-21 14:09] LABS: ALBUMIN 3.7 g/dl (3.4-5.0); ALK PHOS 60 U/L (45-117); ANION GAP 10 MMOL/L (8-16); BILIRUBIN,TOTAL 0.7 mg/dL (0.2-1); BLOOD UREA NITROGEN 20 mg/dL (7-18); CALCIUM 8.5 mg/dL (8.5-10.1); CHLORIDE 101 mmol/L (98-107); CO2 21 mmol/L (21-32); CREATININE 0.9 mg/dL (0.55-1.3); MAGNESIUM 2.2 mg/dL (1.8-2.4); POTASSIUM 4.2 mmol/L (3.5-5.1); SGOT/AST 7 U/L (15-37); SGPT/ALT 14 U/L (13-61); SODIUM 132 mmol/L (136-145); TOT PROT 6.6 g/dl (6.4-8.2)
[2018-01-21 14:11] LABS: GLUCOSE,RANDOM 468 mg/dL (74-106)
--- NOTE | 2018-01-21 15:04 | CONSULT ---
Admitting History and Physical - Primary Care Physician PCP: Angie Ramirez - Admission History of Present Illness: Per EMR: - History of Present Illness Chief Complaint: MS Exacerbation with increased weakness, frequent falls, more numbness to hands, frequent william to arms for the past 2 weeks. History of Present Illness: 32 year old woman with history of relapsing progressive MS, followed at [facility], first diagnosed in 2013 with left leg dragging, and currently receiving Ocrevus q 3 months. She has complaints ongoing cognitive deficits, speech difficulty, imbalance, left sided weakness, and sensory impairment in her hands. The impaired sensation and balance have worsened significantly over the last two weeks resulting in william and falls. She was treated, she says with stem cell therapy in an experimental protocol in [place] funded by a [employer] Campaign that she says helped and also took away the joint pain from her comorbid Lupus, though this seems to be coming back. Selected Entries 01/20/18 01/20/18 01/20/18 02:00 06:00 09:11 Breakfast 100% Lunch Supper Temperature 98.6 F 98.5 F 01/20/18 01/20/18 01/20/18 09:24 14:44 18:00 Breakfast Lunch 100% Supper Temperature 98.6 F 98.9 F 98.1 F 01/20/18 01/20/18 01/21/18 18:45 22:00 05:45 Breakfast Lunch Supper 75% Temperature 98.5 F 97.8 F 01/21/18 01/21/18 09:21 11:54 Breakfast 75% Lunch Supper Temperature 98 F Laboratory Tests 01/19/18 01/20/18 01/21/18 14:30 07:15 12:36 WBC 11.4 H 18.7 H 26.7 H Pt reports coughing on thin liquids intermittently. 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[employer] History - Admission Reason For Visit: EXACERBATION OF MULTIPLE SCLEROSIS - Diagnostics X-ray: Report Reviewed MRI: Pending Modified Barium Swallow: [place] [place] - General Mental Status: Alert and Oriented, Awake and Alert, Able to Follow Commands, Forgetful Attention: Mild Impairment Ability to Follow Directions: Good Head/Neck Control: Fair - Hearing Hearing: Normal Speech Evaluation - Communication Primary Language: [id number] Communication: Yes: Dysarthria Oral Expression Ability: Yes: Mild Impairment - Speech Production Dysarthria: Yes: Ataxic Apraxia: No Able to Make Needs Known: Yes: WNL Intelligibility: Yes: Mildly Impaired - Speech Characteristics Voice Loudness: Excessive Variation Voice Pitch: Yes: Normal, Pitch Breaks Voice Phonatory-based Quality: Yes: Normal Speech Pattern: Impaired Speech Clarity: < 100% Nasal Resonance: Hypernasal Articulation: Yes: Precise Voice, Other Observations: Yes: Disordered Intonation - Language/Auditory Comprehension Follows: Yes: 2 Stage Simple Commands Observation: Able to respond to yes/no queries: Yes, Yes/No Confusion: No, Comprehends Conversational Speech: Yes - Language/Verbal Expression Able to Respond to Simple Queries: Yes: WNL Able to Communicate Wants and Needs: Yes: WNL Functional Communication Status: Yes: WNL - Swallow Evaluation/Bedside Assessment Current Nutritional Intake: Regular, Thin Liquids Oral Secretions: Yes: WFL Dentition: Yes: Adequate Facial Symmetry at Rest: Symmetrical Facial Symmetry on Retraction: Symmetrical Against Resistance Opening: Normal Against Resistance Closing: Normal Pucker Lips: Normal Smile: Normal Lingual Movement: Deviates Left (slight?) Lingual Speed of Movement: Reduced Lingual Movement Strgth Against Opposition: Reduced Lingual Movement Characteristics: Normal Velopharyngeal Movement: Hypernasality, Reduced Elevation Laryngeal Movement: Labored,delay initiation Rate of Intake: Impulsive (at times) Labial Seal: WFL Chewing: WFL Oral Prep Time: WFL A-P Transit: WFL Pocketing: None Timing of Swallow: Delayed Coughing/Throat Clear: Yes (thin liquid intermittently) Recommendations - Speech Evaluation, Impression/Plan Impression: Mild Ataxic Dysarthria, Mild dysphagia with delayed swallow initiation, resulting in occasional aspiration on thin liquid with a strong resposive cough. Memory deficits and mild distractibility.Euphoric at times.Suspect ild cognitive deficits, although she is a good historian for me. - Disposition Discharge to: Rehabilitation Center - Dysphagia Impressions/Plan Swallowing Skills: Impaired Dysphagia Impressions: Mild Impairment, Risk of Aspiration *Silent aspiration: cannot be R/O at bedside Dysphagia Treatment Plan: Small Bites, Chin Tuck/Down, Clear Pocket Food, Trial Feedings, Safe Rate, 1/2 tsp. at a time, Elevate HOB during feed, OOB for meals , OOB for 1 h. after meals, Other (Suspect spillage over BOT with aspiration risk. Educated pt on preparatory set, holding sip of liquid in her mouth, until ready to initiate swallow.) Recommendations: Modified Barium Swallow (if difficulty persists. Monitor tolerance.) - Recommendations Diet Consistency: Regular Liquids: Thin Liquids (single sips. No continuous drinking)
[2018-01-21] MEDS: ZOLPIDEM TARTRATE 5 MG TABLET PO PRN (21:25)
[2018-01-22] MEDS: methylPREDNISolone NA SUCC 125 MG/2 ML VIAL IVPB SCH ×4 (03:54→21:51)
[2018-01-22] MEDS: POTASSIUM CHLORIDE 10 MEQ in SODIUM CHLORIDE 0.45% 1,000 ML IVPB SCH ×3 (06:19→21:53)
[2018-01-22] MEDS: BACLOFEN 10 MG TABLET (FP) PO SCH ×3 (06:20→21:53)
[2018-01-22] MEDS: PANTOPRAZOLE 40 MG TABLET (FP) PO SCH ×2 (10:37→21:53)
[2018-01-22] MEDS: HEPARIN NA (PORCINE) 5,000 UNITS/ML 1ML VIAL SQ SCH ×2 (10:37→21:52)
--- NOTE | 2018-01-22 11:48 | PN ---
Progress Note, Physician Chief Complaint: patient seen and examined getting iv steroids to get MBS check urine test first - Current Medication List Current Medications: Active Medications Acetaminophen (Tylenol -) 650 mg PO Q6H PRN PRN Reason: FEVER Baclofen (Lioresal -) 20 mg PO TID [facility] Last Admin: 01/22/18 06:20 Dose: 20 mg Bupropion HCl (Wellbutrin Xl -) 300 mg PO DAILY [facility] Last Admin: 01/22/18 10:37 Dose: 300 mg Heparin Sodium (Porcine) (Heparin -) 5,000 unit SQ BID [facility] Last Admin: 01/22/18 10:37 Dose: 5,000 unit Potassium Chloride 10 meq/ (Sodium Chloride) 1,005 mls @ 125 mls/hr IVPB Q8H [facility] Last Admin: 01/22/18 06:19 Dose: 125 mls/hr Methylprednisolone Sodium Succinate (Solu-Medrol -) 250 mg IVPB Q6H-IV [facility] Last Admin: 01/22/18 10:36 Dose: 250 mg Non-Formulary Medication (Ocrelizumab [Ocrevus]) 300 mg IV MONTHLY [facility] Oxycodone HCl (Roxicodone -) 5 mg PO Q6H PRN PRN Reason: PAIN LEVEL 4 - 6 Last Admin: 01/21/18 07:56 Dose: 5 mg Pantoprazole Sodium (Protonix -) 40 mg PO BID [facility] Last Admin: 01/22/18 10:37 Dose: 40 mg Zolpidem Tartrate (Ambien -) 5 mg PO HS PRN PRN Reason: INSOMNIA Last Admin: 01/21/18 21:25 Dose: 5 mg - Objective Vital Signs: Vital Signs Temperature 98.1 F 01/22/18 10:00 Pulse Rate 77 01/22/18 10:00 Respiratory Rate 18 01/22/18 10:00 Blood Pressure 123/82 01/22/18 10:00 O2 Sat by Pulse Oximetry (%) 99 01/21/18 21:00 Constitutional: Yes: Calm Cardiovascular: Yes: Regular Rate and Rhythm, S1, S2 Respiratory: Yes: CTA Bilaterally Gastrointestinal: Yes: Normal Bowel Sounds, Soft Edema: No Neurological: Yes: Alert, Oriented Labs: CBC, BMP 01/21/18 12:36 01/21/18 12:36 Problem List - Problems (1) Multiple sclerosis exacerbation Assessment/Plan: iv steroids solumedrol 25mg q6h for 5 days MRI pending [facility]- [facility] after steroids done MBS WBC high secondary to steroids Code(s): G35 - MULTIPLE SCLEROSIS (2) Tachycardia Assessment/Plan: holter monitor cardio on board Code(s): R00.0 - TACHYCARDIA, UNSPECIFIED (3) Diabetes mellitus Assessment/Plan: insulin pump appreciate endocrine consult Code(s): E11.9 - TYPE 2 DIABETES MELLITUS WITHOUT COMPLICATIONS (4) Insomnia Assessment/Plan: ambien Code(s): G47.00 - INSOMNIA, UNSPECIFIED (5) Tachycardia Assessment/Plan: cardiology on board holter monitor to evaluate tachycardia Code(s): R00.0 - TACHYCARDIA, UNSPECIFIED
--- NOTE | 2018-01-22 13:26 | HOL ---
Hook-up date: 2018-01-20 15:25:00 Duration: 23:49:00 Test Indications: WEAKNESS Medications: [id number] QRS complexes 1 Ventricular ectopics which represent <1 % of total QRS comp. 7 Supraventricular ectopics which represent <1 % of total QRS comp. * Paced QRS complexs which represent % of total QRS comp. * % of Time Classified as Noise VENTRICULAR ECTOPY 1 Isolated 0 Bigeminal Cycles 0 Couplets 0 Runs 0 Beats in Runs * Beats LONGEST at * BPM at :: -- * Beats FASTEST at * BPM at :: -- SUPRAVENTRICULAR ECTOPY 7 Isolated 0 Couplets 0 Runs 0 Beats in Runs * Beats LONGEST at * BPM at :: -- * Beats FASTEST at * BPM at :: -- HEART RATES 58 MIN at 02:10:33 2018-01-21 88 AVG 128 MAX at 08:58:05 2018-01-21 LONGEST RR 1.224 secs at 02:10:29 2018-01-21 SCANNED BY BLADIMIR ALMARAZ ON 01/23/18 Baseline rhythm is sinus Average heart rate was 88 BPM (58-128 bpm). Rare APCs and VPCs. Periods of sinus tachycardia. No significant bradycardia or pauses. Confirmed by MD RICA, BRITTANIE ([id number]) on 01/22/2018 1:25:47 PM Referred By: JESSICA BARBER,LANA Overread By: BRITTANIE STRAUSS MD
[2018-01-22] MEDS: oxyCODONE HCL 5 MG TABLET PO PRN (15:23)
--- NOTE | 2018-01-22 17:04 | EKG ---
Test Reason : Blood Pressure : / mmHG Vent. Rate : 099 BPM Atrial Rate : 099 BPM P-R Int : 138 ms QRS Dur : 084 ms QT Int : 368 ms P-R-T Axes : 057 051 064 degrees QTc Int : 472 ms NORMAL SINUS RHYTHM NORMAL ECG WHEN COMPARED WITH ECG OF 27-DEC-2016 05:22, NO SIGNIFICANT CHANGE WAS FOUND Confirmed by MD STRAUSS PENG ([id number]) on 01/22/2018 5:04:04 PM Referred By: Confirmed By:BRITTANIE STRAUSS MD
[2018-01-22] MEDS: ZOLPIDEM TARTRATE 5 MG TABLET PO PRN (21:53)
[2018-01-23] MEDS: methylPREDNISolone NA SUCC 125 MG/2 ML VIAL IVPB SCH ×4 (02:41→22:25)
[2018-01-23] MEDS: BACLOFEN 10 MG TABLET (FP) PO SCH ×3 (06:28→22:05)
[2018-01-23] MEDS: POTASSIUM CHLORIDE 10 MEQ in SODIUM CHLORIDE 0.45% 1,000 ML IVPB SCH ×2 (07:00→14:20)
[2018-01-23] MEDS ORDERED: PT OWN MED DRAWER 7, Y5N ONE (10:19)
[2018-01-23] MEDS: HEPARIN NA (PORCINE) 5,000 UNITS/ML 1ML VIAL SQ SCH ×2 (10:26→22:04)
[2018-01-23] MEDS: PANTOPRAZOLE 40 MG TABLET (FP) PO SCH ×2 (10:26→22:05)
--- NOTE | 2018-01-23 11:23 | PN ---
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 No reports of coughing on PO trials at present. Pending Acute rehabilitation. Of note, pt says she only sleeps 1-2 hours a night, doesn't think she snores. Speech is hypernasal with impaired soft palate elevation, impaired velopharyngeal closure. She becomes SOB when impounding air into oral cavity and breathing though her nose. Both of her parents have RANJIT and sleep with cpap machines. r/o Obstructive Sleep Apnea?
--- NOTE | 2018-01-23 17:38 | PN ---
Progress Note, Physician Chief Complaint: MS exacerbation History of Present Illness: NAD - Current Medication List Current Medications: Active Medications Acetaminophen (Tylenol -) 650 mg PO Q6H PRN PRN Reason: FEVER Albuterol Sulfate (Ventolin 0.083% Nebulizer Soln -) 1 amp NEB Q6H PRN PRN Reason: SHORT OF BREATH/WHEEZING Baclofen (Lioresal -) 20 mg PO TID [facility] Last Admin: 01/23/18 14:25 Dose: 20 mg Bupropion HCl (Wellbutrin Xl -) 300 mg PO DAILY [facility] Last Admin: 01/23/18 10:27 Dose: 300 mg Heparin Sodium (Porcine) (Heparin -) 5,000 unit SQ BID [facility] Last Admin: 01/23/18 10:26 Dose: 5,000 unit Potassium Chloride 10 meq/ (Sodium Chloride) 1,005 mls @ 100 mls/hr IVPB Q8H [facility] Last Admin: 01/23/18 14:20 Dose: Not Given Methylprednisolone Sodium Succinate (Solu-Medrol -) 250 mg IVPB Q6H-IV [facility] Last Admin: 01/23/18 15:50 Dose: 250 mg Non-Formulary Medication (Ocrelizumab [Ocrevus]) 300 mg IV MONTHLY [facility] Oxycodone HCl (Roxicodone -) 5 mg PO Q6H PRN PRN Reason: PAIN LEVEL 4 - 6 Last Admin: 01/22/18 15:23 Dose: 5 mg Pantoprazole Sodium (Protonix -) 40 mg PO BID [facility] Last Admin: 01/23/18 10:26 Dose: 40 mg Zolpidem Tartrate (Ambien -) 5 mg PO HS PRN PRN Reason: INSOMNIA Last Admin: 01/22/18 21:53 Dose: 5 mg - Objective Vital Signs: Vital Signs Temperature 97.9 F 01/23/18 14:23 Pulse Rate 65 01/23/18 14:23 Respiratory Rate 22 H 01/23/18 14:23 Blood Pressure 139/68 01/23/18 14:23 O2 Sat by Pulse Oximetry (%) 100 01/23/18 09:00 Constitutional: Yes: Well Nourished, No Distress, Calm Cardiovascular: Yes: Regular Rate and Rhythm Respiratory: Yes: Regular Gastrointestinal: Yes: Normal Bowel Sounds, Soft Musculoskeletal: Yes: Muscle Weakness Neurological: Yes: Alert, Oriented Psychiatric: Yes: Alert, Oriented Labs: CBC, BMP 01/21/18 12:36 01/21/18 12:36 Problem List - Problems (1) Multiple sclerosis exacerbation Code(s): G35 - MULTIPLE SCLEROSIS (2) Tachycardia Code(s): R00.0 - TACHYCARDIA, UNSPECIFIED (3) Diabetes mellitus Code(s): E11.9 - TYPE 2 DIABETES MELLITUS WITHOUT COMPLICATIONS
[2018-01-23] MEDS ORDERED: SODIUM CHLORIDE 1,000 ML IV SCH (18:15)
[2018-01-23 21:21] LABS: ANION GAP 8 MMOL/L (8-16); BLOOD UREA NITROGEN 13 mg/dL (7-18); CALCIUM 8.7 mg/dL (8.5-10.1); CHLORIDE 105 mmol/L (98-107); CO2 24 mmol/L (21-32); CREATININE 0.9 mg/dL (0.55-1.3); GLUCOSE,RANDOM 191 mg/dL (74-106); POTASSIUM 3.9 mmol/L (3.5-5.1); SODIUM 137 mmol/L (136-145)
--- NOTE | 2018-01-23 21:56 | PN ---
Progress Note (short form) - Note Progress Note: NEUROLOGY FOLLOW-UP: Events reviewed, Patient examined. Dr. Roblero's coverage consultation is greatly appreciated. Pt acknowledges dysphagia. Ms. Vines's consultation noted. This 32 yo RH woman carries Dx of Multiple sclerosis since 2013. Diabetes on insulin pump. + FH of MS in her mother. On copaxone x 2 years but progressed. Now on Ocrelizumab (300 mg q 6 months) for progressive MS. Admitted for loss of ambulation and steroid Rx (now day #5). Last dose September. in [place] at [facility]. Was here last year for exacerbation. Improved on steroids and in PT at [facility]. EXAM: Scattered skin lesions suggesting Fungal infection Dysarthric. Decreased tongue COLLETTE's and gag Severe, variable, gaze-directed Nystagmus Severe right -sided dystaxic tremor. 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 B/L Babinskis. Decreased vibration both legs Gait with 2 assist- B/L circumduction/ footdrop Imp: Multiple Sclerosis/ with exacerbation. Plan: Complete solumedrol tomorrow (day #5) 250 mg IV q 6 hrs. Then, Taper PO prednisone: 80 mg x 2 days; 60 mg x 2 days; 40 mg x 2 days and 20 mg x 2 days Please order [facility] rehab eval for transfer to in patient Rehab. Check Vit D levels, B12 levels and supplement if indicated. Urine for U/A, C&S. Dermatology consultation [place] [facility] [place] Thank you very much, Edgard Gutierrez MD
[2018-01-23] MEDS: ZOLPIDEM TARTRATE 5 MG TABLET PO PRN (22:05)
[2018-01-24] MEDS: methylPREDNISolone NA SUCC 125 MG/2 ML VIAL IVPB SCH ×2 (03:15→09:12)
[2018-01-24] MEDS: BACLOFEN 10 MG TABLET (FP) PO SCH ×3 (06:15→21:03)
[2018-01-24] MEDS: ALBUTEROL SO4 0.083% IH SOL 2.5 MG/3 ML VIAL.NEB. NEB PRN (07:26)
[2018-01-24] MEDS: HEPARIN NA (PORCINE) 5,000 UNITS/ML 1ML VIAL SQ SCH ×2 (09:14→21:03)
[2018-01-24] MEDS: PANTOPRAZOLE 40 MG TABLET (FP) PO SCH ×2 (09:14→21:03)
[2018-01-24 10:35] LABS: URINE APPEARANCE CLEAR; URINE BILIRUBIN NEGATIVE (<2.0 mg/dL); URINE COLOR YELLOW; URINE GLUCOSE (UA) 2+ (NEGATIVE); URINE KETONE NEGATIVE (NEGATIVE); URINE LEUK ESTERASE NEGATIVE (NEGATIVE); URINE NITRITE NEGATIVE (NEGATIVE); URINE PROTEIN NEGATIVE (NEGATIVE); URINE UROBILINOGEN NEGATIVE mg/dL (0.2-1.0)
--- NOTE | 2018-01-24 10:51 | DS ---
Physical Examination Vital Signs: Vital Signs Temperature 98.0 F 01/24/18 09:58 Pulse Rate 72 01/24/18 09:58 Respiratory Rate 18 01/24/18 09:58 Blood Pressure 125/90 01/24/18 09:58 O2 Sat by Pulse Oximetry (%) 100 01/23/18 21:00 Constitutional: Yes: Calm Cardiovascular: Yes: Regular Rate and Rhythm, S1, S2 Respiratory: Yes: CTA Bilaterally Gastrointestinal: Yes: Normal Bowel Sounds, Soft Musculoskeletal: Yes: Muscle Weakness Edema: No Neurological: Yes: Alert, Oriented Labs: CBC, BMP 01/21/18 12:36 01/23/18 18:15 Discharge Summary Reason For Visit: EXACERBATION OF MULTIPLE SCLEROSIS Current Active Problems Lupus (systemic lupus erythematosus) (Acute) Multiple sclerosis exacerbation (Acute) Tachycardia (Acute) Tachycardia (Acute) Other Procedures: c spine and brain MRI done no change from previous. modified barium swallow Hospital Course: 32 y/o afebrile female with PMH IDDM, progressive relapsing remitting MS, Lupus c/o increased weakness, frequent falls, more numbness to hands, frequent william to arms for the past 2 weeks. HISTORY OF PRESENT ILLNESS: The patient has had exacerbations like this in the past and normally needs IV steroids x 5 days. She denies f/c, n/v/d, BROWNE, CP, SOB, abd pain, back pain, hematuria, dysuria. - Past Medical History MASK FORMER: Yes: Multiple Sclerosis ...LMP: 12/13/16 Endocrine: Yes: Diabetes Mellitus (on insulin pump) seen by Neurology in hospital; exacerbation of MS iv steroids now change to po steroids with taper MBS done for dysagia tachycardia seen by cardiology and holter monitor endocrine - insulin pump Condition: Fair - Instructions Diet, Activity, Other Instructions: prednisone taper 80mg po 2 days,60mg po for 2 days,40mg po for 2 days,20mg po for 2 days next dose ocrel[place] in [place] at [facility] Referrals: Fam Lux MD [Primary Care Provider] - Disposition: TRANSFER ACUTE CARE/OTHER HOSP - Home Medications Comprehensive Discharge Medication List: Ambulatory Orders Insulin Pump Syringe, 3 ml [[id number] Hosmer] 1 each ASDIR 12/25/12 Bupropion HCl [Wellbutrin Xl] 300 mg PO DAILY 10/06/15 Modafinil 200 mg PO BID 10/06/15 Baclofen 20 mg PO TID 07/03/16 Ocrelizumab [Ocrevus] 300 mg IV MONTHLY 12/27/16 Acetaminophen [Tylenol .Regular Strength -] 650 mg PO Q6H PRN #0 tablet
--- NOTE | 2018-01-24 10:55 | PN ---
Progress Note (short form) - Note Progress Note: ocrelizumab gets very 6 months last dose was in september and next dose due in [place] at [facility] holter monitor shows sinus rhythm with periods of sinus tachycardia prednisone taper 80mg po for 2 days,60mg po for 2 days,40mg po day for 2 days and 20mg po 2 days to go to [facility] for rehab MBS done derm consult for skin lesion Problem List - Problems (1) Multiple sclerosis exacerbation Code(s): G35 - MULTIPLE SCLEROSIS (2) Tachycardia Code(s): R00.0 - TACHYCARDIA, UNSPECIFIED (3) Diabetes mellitus Code(s): E11.9 - TYPE 2 DIABETES MELLITUS WITHOUT COMPLICATIONS (4) Insomnia Code(s): G47.00 - INSOMNIA, UNSPECIFIED (5) Tachycardia Code(s): R00.0 - TACHYCARDIA, UNSPECIFIED
[2018-01-24] MEDS: POLYETHYLENE GLYCOL 3350 119 GM BTL PO SCH (11:26)
--- NOTE | 2018-01-24 14:06 | PN ---
Progress Note (short form) - Note Progress Note: patient complaining of difficulty breathing and chest pain check stat ekg holter monitor report noted oxygen placed back on on exam s1s2 cta b/l patient has upper body muscle weakness given MS Problem List - Problems (1) Multiple sclerosis exacerbation Code(s): G35 - MULTIPLE SCLEROSIS (2) Tachycardia Code(s): R00.0 - TACHYCARDIA, UNSPECIFIED (3) Diabetes mellitus Code(s): E11.9 - TYPE 2 DIABETES MELLITUS WITHOUT COMPLICATIONS (4) Insomnia Code(s): G47.00 - INSOMNIA, UNSPECIFIED (5) Tachycardia Code(s): R00.0 - TACHYCARDIA, UNSPECIFIED
[2018-01-24] MEDS: oxyCODONE HCL 5 MG TABLET PO PRN (14:18)
--- NOTE | 2018-01-24 14:45 | PN ---
Progress Note, Physician Chief Complaint: The patient complains of intermittent SOB and pain in her collar bones. No palpitation or chest pain. History of Present Illness: 32 year old woman with a PMHx of DMII, MS, Lupus admitted for exacerbation of MS. Noted at times to be tachycardic. Seen by Dr. Aguirre on 01/20/2018. Holter showed sinus rhythm with an average heart rate of 88 BPM. Rare APCs and VPCs. Periods of mild sinus tachycardia. - Current Medication List Current Medications: Active Medications Acetaminophen (Tylenol -) 650 mg PO Q6H PRN PRN Reason: FEVER Albuterol Sulfate (Ventolin 0.083% Nebulizer Soln -) 1 amp NEB Q6H PRN PRN Reason: SHORT OF BREATH/WHEEZING Last Admin: 01/24/18 07:26 Dose: 1 amp Baclofen (Lioresal -) 20 mg PO TID [facility] Last Admin: 01/24/18 13:13 Dose: 20 mg Bupropion HCl (Wellbutrin Xl -) 300 mg PO DAILY [facility] Last Admin: 01/24/18 09:15 Dose: 300 mg Docusate Sodium (Colace -) 300 mg PO HS [facility] Heparin Sodium (Porcine) (Heparin -) 5,000 unit SQ BID [facility] Last Admin: 01/24/18 09:14 Dose: 5,000 unit Oxycodone HCl (Roxicodone -) 5 mg PO Q6H PRN PRN Reason: PAIN LEVEL 4 - 6 Last Admin: 01/24/18 14:18 Dose: 5 mg Pantoprazole Sodium (Protonix -) 40 mg PO BID [facility] Last Admin: 01/24/18 09:14 Dose: 40 mg Polyethylene Glycol (Miralax (For Daily Use) -) 17 gm PO DAILY [facility] Last Admin: 01/24/18 11:26 Dose: 17 gm Prednisone (Deltasone -) 80 mg PO DAILY [facility] Stop: 01/27/18 09:59 Zolpidem Tartrate (Ambien -) 5 mg PO HS PRN PRN Reason: INSOMNIA Last Admin: 01/23/18 22:05 Dose: 5 mg - Objective Vital Signs: Vital Signs Temperature 98.0 F 01/24/18 09:58 Pulse Rate 81 01/24/18 14:00 Respiratory Rate 18 01/24/18 14:00 Blood Pressure 122/80 01/24/18 14:00 O2 Sat by Pulse Oximetry (%) 97 01/24/18 09:00 General: Well developed. Well nourished. No acute distress. Head: Normocephalic. Atraumatic, Eyes: PERRLA, EOMI. Sclerae anicteric. Conjunctivae clear. Neck: Supple. No JVD. No bruits. Heart: Normal S1, S2: Regular rhythm and rate. No murmur. No gallop or rub. Lungs: Symmetrical air entry. Clear to auscultation. No crackles. No wheezing or rhonchi. Abdomen: Soft. Bowel sound positive. Non tender. No masses. Extremities: No edema. No clubbing or cyanosis. PD 2+, Labs: CBC, BMP 01/21/18 12:36 01/23/18 18:15 Assessment/Plan 32 year old woman with a PMHx of DMII, MS, Lupus admitted for exacerbation of MS. Noted at times to be tachycardic. Seen by Dr. Aguirre on 01/20/2018. Holter showed sinus rhythm with an average heart rate of 88 BPM. Rare APCs and VPCs. Periods of mild sinus tachycardia. 1) Sinus tachycardia: Mild range, currently 70-80 bpm. No palpitation. May use low dose beta vidal if she is symptomatic with palpitation. 2) SOB: Clear lungs. No physical signs of fluid overload, likely non-cardiac. Out-pt cardiac follow up with Dr. Aguirre if needed. Please call us for reconsult as needed.
--- NOTE | 2018-01-24 15:12 | PN ---
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 No reports of coughing on PO trials at present. Pending Acute rehabilitation. ?
--- NOTE | 2018-01-24 15:19 | EKG ---
Test Reason : Blood Pressure : / mmHG Vent. Rate : 074 BPM Atrial Rate : 074 BPM P-R Int : 138 ms QRS Dur : 088 ms QT Int : 396 ms P-R-T Axes : 059 048 068 degrees QTc Int : 439 ms NORMAL SINUS RHYTHM NONSPECIFIC T WAVE ABNORMALITY ABNORMAL ECG WHEN COMPARED WITH ECG OF 20-JAN-2018 09:43, NONSPECIFIC T WAVE ABNORMALITY NOW EVIDENT IN ANTERIOR LEADS Confirmed by FAUZIA ARROYO, SHANNON ([id number]) on 01/24/2018 3:18:58 PM Referred By: ATILIO MASTERS Confirmed By:SHANNON CAGE MD
[2018-01-24 16:18] LABS: HEMATOCRIT 36.6 % (32.4-45.2); HEMOGLOBIN 12.4 GM/dL (10.7-15.3); MCH 32.1 pg (25.7-33.7); MEAN CELL VOLUME 94.5 fl (80-96); MEAN PLT VOLUME 9.8 fl (7.5-11.1); PLATELET COUNT 247 K/MM3 (134-434); RBC 3.87 M/mm3 (3.60-5.2); WHITE BLOOD COUNT 14.9 K/mm3 (4.0-10.0)
[2018-01-24] MEDS: DOCUSATE SODIUM 100 MG CAPSULE (FP) PO SCH (21:03)
[2018-01-24] MEDS: ZOLPIDEM TARTRATE 5 MG TABLET PO PRN (22:57)
[2018-01-25] MEDS: BACLOFEN 10 MG TABLET (FP) PO SCH ×3 (05:30→21:37)
[2018-01-25] MEDS: ALBUTEROL SO4 0.083% IH SOL 2.5 MG/3 ML VIAL.NEB. NEB PRN ×2 (08:00→21:23)
[2018-01-25] MEDS ORDERED: PT OWN MED DRAWER 7, Y5N ONE (09:34)
[2018-01-25] MEDS: PANTOPRAZOLE 40 MG TABLET (FP) PO SCH ×2 (09:36→21:38)
[2018-01-25] MEDS: predniSONE 20 MG TABLET (UD) PO SCH (09:36)
[2018-01-25] MEDS: HEPARIN NA (PORCINE) 5,000 UNITS/ML 1ML VIAL SQ SCH ×2 (09:37→21:38)
[2018-01-25] MEDS: POLYETHYLENE GLYCOL 3350 119 GM BTL PO SCH ×2 (09:37→21:37)
[2018-01-25] MEDS ORDERED: BISACODYL 10 MG SUPP.RECT RC ONE (11:18)
--- NOTE | 2018-01-25 12:23 | PN ---
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 No reports of coughing on PO trials at present. Pt reports not coughing or choking on any consistency since she is using compensatory strategies taught to her, based on recent MBS. Less hypernasal today. Pending Acute rehabilitation. ?
[2018-01-25] MEDS: CLINDAMYCIN PHOSPHATE 1% TOPICAL GEL 30 GM TUBE TP SCH ×2 (16:03→21:43)
[2018-01-25] MEDS: DOCUSATE SODIUM 100 MG CAPSULE (FP) PO SCH (21:37)
[2018-01-25] MEDS: SENNOSIDES 8.6MG TABLET (FP) PO SCH (21:38)
[2018-01-25] MEDS: ZOLPIDEM TARTRATE 5 MG TABLET PO PRN (23:26)
--- NOTE | 2018-01-25 23:37 | PN ---
Progress Note, Physician Chief Complaint: has pleuritic chest pain History of Present Illness: dm,type 1,ms,sle,symptomatic progression of ms with severe mobility restriction, blood sugars elevated on steroids - Current Medication List Current Medications: Active Medications Acetaminophen (Tylenol -) 650 mg PO Q6H PRN PRN Reason: FEVER Albuterol Sulfate (Ventolin 0.083% Nebulizer Soln -) 1 amp NEB Q6H PRN PRN Reason: SHORT OF BREATH/WHEEZING Last Admin: 01/25/18 21:23 Dose: 1 amp Baclofen (Lioresal -) 20 mg PO TID [facility] Last Admin: 01/25/18 21:37 Dose: 20 mg Bupropion HCl (Wellbutrin Xl -) 300 mg PO DAILY [facility] Last Admin: 01/25/18 09:36 Dose: 300 mg Clindamycin Phosphate (Cleocin 1% Gel -) 1 applic TP BID [facility] Last Admin: 01/25/18 21:43 Dose: Not Given Docusate Sodium (Colace -) 300 mg PO HS [facility] Last Admin: 01/25/18 21:37 Dose: 300 mg Heparin Sodium (Porcine) (Heparin -) 5,000 unit SQ BID [facility] Last Admin: 01/25/18 21:38 Dose: 5,000 unit Oxycodone HCl (Roxicodone -) 5 mg PO Q6H PRN PRN Reason: PAIN LEVEL 4 - 6 Last Admin: 01/24/18 14:18 Dose: 5 mg Pantoprazole Sodium (Protonix -) 40 mg PO BID [facility] Last Admin: 01/25/18 21:38 Dose: 40 mg Polyethylene Glycol (Miralax (For Daily Use) -) 17 gm PO BID [facility] Last Admin: 01/25/18 21:37 Dose: 17 grams Prednisone (Deltasone -) 80 mg PO DAILY [facility] Stop: 01/27/18 09:59 Last Admin: 01/25/18 09:36 Dose: 80 mg Senna (Senna -) 2 tab PO HS [facility] Last Admin: 01/25/18 21:38 Dose: 2 tab Zolpidem Tartrate (Ambien -) 5 mg PO HS PRN PRN Reason: INSOMNIA Last Admin: 01/25/18 23:26 Dose: 5 mg - Objective Vital Signs: Vital Signs Temperature 97.8 F 01/25/18 22:00 Pulse Rate 97 H 01/25/18 22:00 Respiratory Rate 19 01/25/18 22:00 Blood Pressure 129/68 01/25/18 22:00 O2 Sat by Pulse Oximetry (%) 94 L 01/25/18 21:00 Constitutional: Yes: Calm Eyes: Yes: EOM Intact HENT: Yes: Normocephalic Neck: Yes: Trachea Midline Cardiovascular: Yes: Regular Rate and Rhythm Respiratory: Yes: CTA Bilaterally Gastrointestinal: Yes: Normal Bowel Sounds ...Rectal Exam: Yes: Deferred Genitourinary: Yes: WNL Breast(s): Yes: WNL Musculoskeletal: Yes: WNL Extremities: Yes: Delayed Capillary Refill, Pallor Edema: No Peripheral Pulses WNL: Yes Neurological: Yes: Alert, Oriented, Numbness, Pre-Existing Deficit, Tingling, Unsteady Gait, Weakness Labs: CBC, BMP 01/24/18 15:10 01/23/18 18:15 Problem List - Problems (1) Lupus (systemic lupus erythematosus) Code(s): M32.9 - SYSTEMIC LUPUS ERYTHEMATOSUS, UNSPECIFIED (2) Multiple sclerosis exacerbation Code(s): G35 - MULTIPLE SCLEROSIS (3) Tachycardia Code(s): R00.0 - TACHYCARDIA, UNSPECIFIED (4) Ataxia Code(s): R27.0 - ATAXIA, UNSPECIFIED (5) Brain lesion Code(s): G93.9 - DISORDER OF BRAIN, UNSPECIFIED (6) Diabetes mellitus Code(s): E11.9 - TYPE 2 DIABETES MELLITUS WITHOUT COMPLICATIONS (7) Headache Code(s): R51 - HEADACHE Qualifiers: Headache type: other vascular headache Qualified Code(s): G44.1 - Vascular headache, not elsewhere classified Assessment/Plan Current Active Problems Lupus (systemic lupus erythematosus) (Acute) Multiple sclerosis exacerbation (Acute) Tachycardia (Acute) iddm type 1 with neuropathy Laboratory Results - last 24 hr 01/25/18 01/25/18 01/25/18 04:51 16:09 21:36 POC Glucometer 263 241 380 Laboratory Tests 01/23/18 01/24/18 18:15 15:10 WBC 14.9 H RBC 3.87 Hct 36.6 MCV 94.5 MCHC 34.0 RDW 12.0 Plt Count 247 MPV 9.8 Sodium 137 Potassium 3.9 Chloride 105 Carbon Dioxide 24 Anion Gap 8 BUN 13 Creatinine 0.9 Creat Clearance w eGFR > 60 Random Glucose 191 H plan insulin basal rated adjustment for higher sugar bgm qid novolog dose boluses with carb counting Current Medications Generic Name Dose Route Start Last Admin Trade Name Freq PRN Reason Stop Dose Admin Acetaminophen 650 mg 01/19/18 15:59 Tylenol - PO Q6H PRN FEVER Albuterol Sulfate 1 amp 01/22/18 12:34 01/25/18 21:23 Ventolin 0.083% Nebulizer Soln - NEB 1 amp Q6H PRN Administration SHORT OF BREATH/WHEEZING Baclofen 20 mg 01/19/18 22:00 01/25/18 21:37 Lioresal - PO 20 mg TID [facility] Administration Bupropion HCl 300 mg 01/20/18 10:00 01/25/18 09:36 Wellbutrin Xl - PO 300 mg DAILY [facility] Administration Clindamycin Phosphate 1 applic 01/25/18 11:30 01/25/18 21:43 Cleocin 1% Gel - TP Not Given BID [facility] Docusate Sodium 300 mg 01/24/18 22:00 01/25/18 21:37 Colace - PO 300 mg HS [facility] Administration Heparin Sodium (Porcine) 5,000 unit 01/19/18 22:00 01/25/18 21:38 Heparin - SQ 5,000 unit BID [facility] Administration Oxycodone HCl 5 mg 01/20/18 18:01 01/24/18 14:18 Roxicodone - PO 5 mg Q6H PRN Administration PAIN LEVEL 4 - 6 Pantoprazole Sodium 40 mg 01/19/18 22:00 01/25/18 21:38 Protonix - PO 40 mg BID [facility] Administration Polyethylene Glycol 17 gm 01/25/18 22:00 01/25/18 21:37 Miralax (For Daily Use) - PO 17 grams BID [facility] Administration Prednisone 80 mg 01/25/18 10:00 01/25/18 09:36 Deltasone - PO 01/27/18 09:59 80 mg DAILY [facility] Administration Senna 2 tab 01/25/18 22:00 01/25/18 21:38 Senna - PO 2 tab HS [facility] Administration Zolpidem Tartrate 5 mg 01/20/18 10:35 01/25/18 23:26 Ambien - PO 5 mg HS PRN Administration INSOMNIA
[2018-01-26] MEDS: BACLOFEN 10 MG TABLET (FP) PO SCH ×3 (06:23→21:43)
[2018-01-26] MEDS: predniSONE 20 MG TABLET (UD) PO SCH (10:48)
[2018-01-26] MEDS: HEPARIN NA (PORCINE) 5,000 UNITS/ML 1ML VIAL SQ SCH ×2 (10:48→21:43)
[2018-01-26] MEDS: POLYETHYLENE GLYCOL 3350 119 GM BTL PO SCH ×2 (10:48→21:43)
[2018-01-26] MEDS: PANTOPRAZOLE 40 MG TABLET (FP) PO SCH ×2 (10:48→21:43)
[2018-01-26] MEDS: CLINDAMYCIN PHOSPHATE 1% TOPICAL GEL 30 GM TUBE TP SCH ×2 (10:50→21:43)
--- NOTE | 2018-01-26 11:46 | PN ---
Progress Note, Physician Chief Complaint: AWAKE AND ALERT PREVIOUS EVENTS AND NOTES VIEWED NAD DENIES COMPLAINTS OF CHEST PAIN, CONT TO C/O SOB - Current Medication List Current Medications: Active Medications Acetaminophen (Tylenol -) 650 mg PO Q6H PRN PRN Reason: FEVER Albuterol Sulfate (Ventolin 0.083% Nebulizer Soln -) 1 amp NEB Q6H PRN PRN Reason: SHORT OF BREATH/WHEEZING Last Admin: 01/25/18 21:23 Dose: 1 amp Baclofen (Lioresal -) 20 mg PO TID [facility] Last Admin: 01/26/18 06:23 Dose: 20 mg Bupropion HCl (Wellbutrin Xl -) 300 mg PO DAILY [facility] Last Admin: 01/26/18 10:48 Dose: 300 mg Clindamycin Phosphate (Cleocin 1% Gel -) 1 applic TP BID [facility] Last Admin: 01/26/18 10:50 Dose: 1 applic Docusate Sodium (Colace -) 300 mg PO HS [facility] Last Admin: 01/25/18 21:37 Dose: 300 mg Heparin Sodium (Porcine) (Heparin -) 5,000 unit SQ BID [facility] Last Admin: 01/26/18 10:48 Dose: 5,000 unit Oxycodone HCl (Roxicodone -) 5 mg PO Q6H PRN PRN Reason: PAIN LEVEL 4 - 6 Last Admin: 01/24/18 14:18 Dose: 5 mg Pantoprazole Sodium (Protonix -) 40 mg PO BID [facility] Last Admin: 01/26/18 10:48 Dose: 40 mg Polyethylene Glycol (Miralax (For Daily Use) -) 17 gm PO BID [facility] Last Admin: 01/26/18 10:48 Dose: Not Given Prednisone (Deltasone -) 80 mg PO DAILY [facility] Stop: 01/27/18 09:59 Last Admin: 01/26/18 10:48 Dose: 80 mg Senna (Senna -) 2 tab PO HS [facility] [place] Last Admin: 01/25/18 21:38 Dose: 2 tab Zolpidem Tartrate (Ambien -) 5 mg PO HS PRN PRN Reason: INSOMNIA Last Admin: 01/25/18 23:26 Dose: 5 mg - Objective Vital Signs: Vital Signs Temperature 99.1 F 01/26/18 05:36 Pulse Rate 93 H 01/26/18 05:36 Respiratory Rate 20 01/26/18 05:36 Blood Pressure 121/46 L 01/26/18 05:36 O2 Sat by Pulse Oximetry (%) 94 L 01/25/18 21:00 Constitutional: Yes: Mild Distress Cardiovascular: Yes: Regular Rate and Rhythm Respiratory: Yes: CTA Bilaterally Gastrointestinal: Yes: Soft Musculoskeletal: Yes: Muscle Weakness Edema: No Peripheral Pulses WNL: Yes Integumentary: Yes: Tattoos Neurological: Yes: Alert, Oriented, Pre-Existing Deficit, Unsteady Gait, Weakness ...Motor Strength: LUE, LLE (WEAKNESS) Psychiatric: Yes: Alert Labs: CBC, BMP 01/24/18 15:10 01/23/18 18:15 Problem List - Problems (1) Lupus (systemic lupus erythematosus) Code(s): M32.9 - SYSTEMIC LUPUS ERYTHEMATOSUS, UNSPECIFIED (2) Multiple sclerosis exacerbation Code(s): G35 - MULTIPLE SCLEROSIS (3) 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
[2018-01-26] MEDS ORDERED: SCOPOLAMINE HYDROBROMIDE 1 PATCH PATCH.TD72 TD SCH (12:00)
--- NOTE | 2018-01-26 13:06 | CONSULT ---
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[employer] History - Admission Reason For Visit: EXACERBATION OF MULTIPLE SCLEROSIS - General Mental Status: Alert and Oriented, Awake and Alert, Able to Follow Commands, Forgetful Attention: Mild Impairment Ability to Follow Directions: Good Head/Neck Control: Fair - Hearing Hearing: Normal Speech Evaluation - Communication Primary Language: GERMAN Communication: Yes: Dysarthria Oral Expression Ability: Yes: Mild Impairment - Speech Production Dysarthria: Yes: Ataxic Apraxia: No Intelligibility: Yes: Mildly Impaired - Speech Characteristics Voice Loudness: Excessive Variation Voice Pitch: Yes: Normal, Pitch Breaks Voice Phonatory-based Quality: Yes: Normal Speech Pattern: Impaired Speech Clarity: < 100% Nasal Resonance: Hypernasal Articulation: Yes: Precise Voice, Other Observations: Yes: Disordered Intonation - Language/Auditory Comprehension Follows: Yes: 2 Stage Simple Commands Observation: Able to respond to yes/no queries: Yes, Yes/No Confusion: No, Comprehends Conversational Speech: Yes - Language/Verbal Expression Able to Respond to Simple Queries: Yes: WNL Able to Communicate Wants and Needs: Yes: WNL Functional Communication Status: Yes: WNL - Swallow Evaluation/Bedside Assessment Dentition: Yes: Adequate Facial Symmetry at Rest: Symmetrical Facial Symmetry on Retraction: Symmetrical Against Resistance Opening: Normal Against Resistance Closing: Normal Pucker Lips: Normal Smile: Normal Lingual Movement: Deviates Left (slight?) Lingual Speed of Movement: Reduced Lingual Movement Strgth Against Opposition: Reduced Lingual Movement Characteristics: Normal Velopharyngeal Movement: Hypernasality, Reduced Elevation Laryngeal Movement: Labored,delay initiation Labial Seal: WFL Chewing: WFL Oral Prep Time: WFL A-P Transit: WFL Pocketing: None Timing of Swallow: Delayed Coughing/Throat Clear: Yes (thin liquid intermittently)
[2018-01-26] MEDS ORDERED: PT OWN MED DRAWER 7, Y5N ONE (16:43)
[2018-01-26] MEDS ORDERED: INSULIN (NOVOLOG) ASPART 100 UNITS/ML 10ML VIAL ONE (18:30)
[2018-01-26] MEDS: SENNOSIDES 8.6MG TABLET (FP) PO SCH (21:43)
[2018-01-26] MEDS: DOCUSATE SODIUM 100 MG CAPSULE (FP) PO SCH (21:43)
[2018-01-27] MEDS: BACLOFEN 10 MG TABLET (FP) PO SCH ×3 (06:03→21:48)
[2018-01-27] MEDS ORDERED: PT OWN MED DRAWER 7, Y5N ONE ×3 (09:14→19:02)
[2018-01-27] MEDS: CLINDAMYCIN PHOSPHATE 1% TOPICAL GEL 30 GM TUBE TP SCH ×2 (09:17→21:49)
[2018-01-27] MEDS: HEPARIN NA (PORCINE) 5,000 UNITS/ML 1ML VIAL SQ SCH ×2 (09:17→21:49)
[2018-01-27] MEDS: PANTOPRAZOLE 40 MG TABLET (FP) PO SCH ×2 (09:18→21:48)
[2018-01-27] MEDS: POLYETHYLENE GLYCOL 3350 119 GM BTL PO SCH ×2 (09:19→21:49)
[2018-01-27] MEDS ORDERED: INSULIN (NOVOLOG) ASPART 100 UNITS/ML 10ML VIAL SQ SCH (11:00)
--- NOTE | 2018-01-27 11:10 | PN ---
Progress Note (short form) - Note Progress Note: unable to access novolog vial insulin via pump will need bgm achs novolog scale will switch to bgm achs as pump running low levemir bid doses Problem List - Problems (1) Lupus (systemic lupus erythematosus) Code(s): M32.9 - SYSTEMIC LUPUS ERYTHEMATOSUS, UNSPECIFIED (2) Multiple sclerosis exacerbation Code(s): G35 - MULTIPLE SCLEROSIS (3) Tachycardia Code(s): R00.0 - TACHYCARDIA, UNSPECIFIED (4) Ataxia Code(s): R27.0 - ATAXIA, UNSPECIFIED (5) Brain lesion Code(s): G93.9 - DISORDER OF BRAIN, UNSPECIFIED (6) Diabetes mellitus Code(s): E11.9 - TYPE 2 DIABETES MELLITUS WITHOUT COMPLICATIONS (7) Headache Code(s): R51 - HEADACHE Qualifiers: Headache type: other vascular headache Qualified Code(s): G44.1 - Vascular headache, not elsewhere classified
[2018-01-27] MEDS: INSULIN SLIDING SCALE (NOVOLOG) 1 VIAL SQ SCH ×3 (12:19→22:48)
[2018-01-27] MEDS: predniSONE 20 MG TABLET (UD) PO SCH (12:21)
--- NOTE | 2018-01-27 13:42 | PN ---
Progress Note (short form) - Note Progress Note: AWAITING FOR AUTHORIZATION FOR SNF AT [facility] PREDNISONE TAPER INSULIN PUMP REQUIRES A RELOADING DOSE HOWEVER [facility] DOES NOT HAVE THE CORRECT INSULIN. DR HUSAIN FROM ENDOCRINE IS AWARE AND ORDERED A SLIDING SCALE TO FOLLOW. 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
[2018-01-27 16:23] VITALS: BMI 25.1
[2018-01-27] MEDS: DOCUSATE SODIUM 100 MG CAPSULE (FP) PO SCH (21:48)
[2018-01-27] MEDS: SENNOSIDES 8.6MG TABLET (FP) PO SCH (21:49)
[2018-01-27] MEDS ORDERED: INSULIN (LEVEMIR) 100 UNITS/ML UNITS SQ SCH (22:00)
[2018-01-28] MEDS: BACLOFEN 10 MG TABLET (FP) PO SCH ×2 (05:47→13:47)
[2018-01-28] MEDS: INSULIN SLIDING SCALE (NOVOLOG) 1 VIAL SQ SCH ×3 (06:52→16:00)
[2018-01-28] MEDS ORDERED: INSULIN (LEVEMIR) 100 UNITS/ML UNITS SQ SCH (07:00)
[2018-01-28] MEDS: ALBUTEROL SO4 0.083% IH SOL 2.5 MG/3 ML VIAL.NEB. NEB PRN (08:21)
[2018-01-28] MEDS ORDERED: PT OWN MED DRAWER 7, Y5N ONE (09:25)
[2018-01-28] MEDS: CLINDAMYCIN PHOSPHATE 1% TOPICAL GEL 30 GM TUBE TP SCH (10:12)
[2018-01-28] MEDS: predniSONE 20 MG TABLET (UD) PO SCH (10:12)
[2018-01-28] MEDS: PANTOPRAZOLE 40 MG TABLET (FP) PO SCH (10:12)
[2018-01-28] MEDS: POLYETHYLENE GLYCOL 3350 119 GM BTL PO SCH (10:13)
[2018-01-28] MEDS: HEPARIN NA (PORCINE) 5,000 UNITS/ML 1ML VIAL SQ SCH (10:13)
--- NOTE | 2018-01-28 11:56 | PN ---
Progress Note, Physician Chief Complaint: peer to peer done earlier today and now patient accepted [facility] - Current Medication List Current Medications: Active Medications Acetaminophen (Tylenol -) 650 mg PO Q6H PRN PRN Reason: FEVER Last Admin: 01/27/18 23:15 Dose: 650 mg Albuterol Sulfate (Ventolin 0.083% Nebulizer Soln -) 1 amp NEB Q6H PRN PRN Reason: SHORT OF BREATH/WHEEZING Last Admin: 01/28/18 08:21 Dose: 1 amp Baclofen (Lioresal -) 20 mg PO TID [facility] Last Admin: 01/28/18 05:47 Dose: 20 mg Bupropion HCl (Wellbutrin Xl -) 300 mg PO DAILY [facility] Last Admin: 01/28/18 10:12 Dose: 300 mg Clindamycin Phosphate (Cleocin 1% Gel -) 1 applic TP BID [facility] Last Admin: 01/28/18 10:12 Dose: 1 applic Docusate Sodium (Colace -) 300 mg PO HS [facility] Last Admin: 01/27/18 21:48 Dose: 300 mg Heparin Sodium (Porcine) (Heparin -) 5,000 unit SQ BID [facility] Last Admin: 01/28/18 10:13 Dose: 5,000 unit Insulin Aspart (Novolog Vial Sliding Scale -) 1 vial SQ [facility]; Protocol Last Admin: 01/28/18 06:52 Dose: Not Given Insulin Detemir (Levemir Vial) 18 units SQ AM [facility] Last Admin: 01/28/18 06:12 Dose: Not Given Insulin Detemir (Levemir Vial) 10 units SQ HS [facility] Last Admin: 01/27/18 21:49 Dose: Not Given Oxycodone HCl (Roxicodone -) 5 mg PO Q6H PRN PRN Reason: PAIN LEVEL 4 - 6 Last Admin: 01/24/18 14:18 Dose: 5 mg Pantoprazole Sodium (Protonix -) 40 mg PO BID [facility] Last Admin: 01/28/18 10:12 Dose: 40 mg Polyethylene Glycol (Miralax (For Daily Use) -) 17 gm PO BID [facility] Last Admin: 01/28/18 10:13 Dose: 17 grams Prednisone (Deltasone -) 40 mg PO DAILY [facility] Stop: 01/30/18 10:01 Prednisone (Deltasone -) 20 mg PO DAILY [facility] Stop: 02/01/18 10:01 Scopolamine HBr (Transderm-Scop -) 1 patch TD Q72H [facility] Last Admin: 01/26/18 13:49 Dose: 1 patch Senna (Senna -) 2 tab PO HS [facility] Last Admin: 01/27/18 21:49 Dose: 2 tab Zolpidem Tartrate (Ambien -) 5 mg PO HS PRN PRN Reason: INSOMNIA Last Admin: 01/25/18 23:26 Dose: 5 mg - Objective Vital Signs: Vital Signs Temperature 97.3 F L 01/28/18 06:00 Pulse Rate 65 01/28/18 06:00 Respiratory Rate 18 01/28/18 06:00 Blood Pressure 134/72 01/28/18 06:00 O2 Sat by Pulse Oximetry (%) 99 01/27/18 09:00 Constitutional: Yes: Calm Neck: Yes: Trachea Midline Cardiovascular: Yes: Regular Rate and Rhythm, S1, S2 Respiratory: Yes: CTA Bilaterally Gastrointestinal: Yes: Normal Bowel Sounds, Soft Musculoskeletal: Yes: Muscle Weakness Edema: No Labs: CBC, BMP 01/24/18 15:10 01/23/18 18:15 Problem List - Problems (1) Multiple sclerosis exacerbation Assessment/Plan: iv steroids solumedrol 25mg q6h for 5 days completed MRI pdone PT- [facility] today- pulm and physical rehab MBS WBC high secondary to steroids- trending down scopolamine patch for increased drooling Code(s): G35 - MULTIPLE SCLEROSIS (2) Tachycardia Assessment/Plan: holter monitor cardio on board Code(s): R00.0 - TACHYCARDIA, UNSPECIFIED (3) Diabetes mellitus Assessment/Plan: insulin pump appreciate endocrine consult novolog via the pump levemir bid as novolog running low in pump Code(s): E11.9 - TYPE 2 DIABETES MELLITUS WITHOUT COMPLICATIONS (4) Insomnia Assessment/Plan: ambien Code(s): G47.00 - INSOMNIA, UNSPECIFIED (5) Tachycardia Assessment/Plan: cardiology on board holter monitor to evaluate tachycardia- sinus tachycardia now HR better controlled Code(s): R00.0 - TACHYCARDIA, UNSPECIFIED
[2018-01-28 15:33] VITALS: BP 132/83; PULSE 100; TEMP 98.3
[2018-01-29] MEDS ORDERED: predniSONE 20 MG TABLET (UD) PO SCH (10:00)
[2018-01-31] MEDS ORDERED: predniSONE 20 MG TABLET (UD) PO SCH (10:00)
== END 2018-01-28 17:22 | DRG 60 ==
LOC: JER 12:34 → JERBED 14:40 → J5S 18:27
PROVIDERS: ADMIT Family Medicine; ATTEND Family Medicine
DX: G35 Multiple sclerosis (principal); R00.0 Tachycardia, unspecified; R25.1 Tremor, unspecified; G47.00 Insomnia, unspecified; M32.9 Systemic lupus erythematosus, unspecified; R51 Headache; R27.0 Ataxia, unspecified; G93.9 Disorder of brain, unspecified; E10.40 Type 1 diabetes mellitus with diabetic neuropathy, unspecified; Z79.4 Long term (current) use of insulin
CPT/HCPCS: 36415; 70553-TC; 71045-TC-FY; 72156-TC; 74230-TC-FY; 80048; 80053; 81003; 82550; 82607; 82962; 83735; 84439; 84443; 84481; 84484; 84703; 85025; 85027; 87086; 92611-GN; 93005; 93010; 93225; 93226; 94640; 97116-GP; 97161-GP; 99282-25; J0475; J1644